=== PATIENT | male | born 1935 | race Caucasian/White ===

== ENCOUNTER 2020-03-24 12:46 | Outpatient (CLI) | payer MEDICARE, OTHER, SELFPAY ==
--- NOTE | ~2020-03-24 | CT_ITS ---
EXAMINATION:CT chest wo con DATE: 03/24/2020 13:25 INDICATION: Solitary pulmonary nodule. TECHNIQUE: Computed tomography (CT) of the chest was performed without intravenous contrast. Automate d exposure control and iterative reconstruction technique were employed. The dose-length product (DLP ) was 111.73 mGy-cm. COMPARISON: PET/CT 04/02/2019, chest CT 03/23/2019, 12/20/2018 FINDINGS: There is a 15 mm nodule in right upper lobe. There are widespread peripheral reticular opac ities with areas of groundglass opacity with a lower lung predominance. There are new groundglass opa cities in posterior segment right upper lobe. No bronchiectasis or honeycombing. No pleural effusion. The heart size is normal. There are coronary artery calcifications. No pericardial effusion. There i s a left chest wall pacer with leads in the right atrium and right ventricle. There are no pathologic ally enlarged lymph nodes. There is a 2 mm stone in left kidney. There is mild thoracic spondylosis. IMPRESSION: 1. 15 mm right upper lobe pulmonary nodule, stable from 12/20/2018, likely benign. 2. Stable chronic interstitial lung disease in a pattern of usual interstitial pneumonia (UIP) versus nonspecific interstitial pneumonia (NSIP). 3. New groundglass opacities in posterior segment right upper lobe, consistent with inflammation vers us pneumonia. Reviewed, dictated and finalized at location A. IMPRESSION: 1. 15 mm right upper lobe pulmonary nodule, stable from 12/20/2018, likely benig n. 2. Stable chronic interstitial lung disease in a pattern of usual interstitial pneumonia (UIP) versus nonspecific interstitial pneumonia (NSIP). 3. New groundglass opacities in posterior segment right upper lobe, consistent with inflammation versus pneumonia.
== END 2020-03-24 12:47 | disposition home or self-care (01) ==
LOC: ANHIMG 12:53
PROVIDERS: PCP Family Medicine; Visit Provider Nurse Practitioner Family
DX: R91.1 Solitary pulmonary nodule (principal); R91.8 Other nonspecific abnormal finding of lung field
CPT/HCPCS: 71250

== ENCOUNTER 2020-03-25 16:22 | Emergency (ER) | payer MEDICARE, OTHER, SELFPAY ==
--- NOTE | ~2020-03-25 | XR_ITS ---
EXAMINATION: XR chest 2V DATE: 03/25/2020 17:05 INDICATION: Chest pain TECHNIQUE: PA and lateral views of the chest are obtained. COMPARISON: CT from yesterday FINDINGS: The lungs are free of acute opacities. A right upper lobe nodule is better demonstrated on yesterday's CT examination. Reticular opacities of the lung bases are consistent with chronic interst itial lung disease. There is no pleural effusion or pneumothorax. The cardiomediastinal silhouette is normal. There is mild thoracic spondylosis. A dual-lead cardiac pacemaker of the left chest wall end s with leads in expected locations. IMPRESSION: 1. No acute cardiopulmonary abnormality. Reviewed, dictated and finalized at location A.
[2020-03-25 16:23] VITALS: BP 163/76; PULSE 72; RESP 17; TEMP 36.4; O2SAT 100
--- NOTE | 2020-03-25 16:27 | ECG_ITS ---
Measurements Intervals Onyx Rate: 75 P: 56 MA: 150 QRS: -25 QRSD: 88 T: 6 QT: 387 QTc: 433 Interpretive Statements SINUS RHYTHM BORDERLINE R WAVE PROGRESSION, ANTERIOR LEADS BORDERLINE ST-T WAVE ABNORMALITY- INFERIOR LEADS BASELINE ARTIFACT- I, II, III, AVR, AVL, AVF, V4-V6 BORDERLINE ECG Electronically Signed On 03-25-2020 19:36:22 CDT by Adolfo Mejia D.O.
[2020-03-25 16:39] VITALS: PULSE 78
[2020-03-25 16:42] LABS: Basophils Percent Auto 0.6 % (0.2-1.2); Eosinophils Absolute Auto 0.1 K/mm3 (0-0.3); Eosinophils Percent Auto 1.6 % (0-4.4); Hematocrit 37.3 % (42.0-52.0); Hemoglobin 12.8 g/dL (14.0-18.0); Immature Granulocyte Absolute 0.01 K/mm3 (0.00-0.031); Immature Granulocyte Percent A 0.1 % (0-0.5); Lymphocytes Absolute Auto 1.19 K/mm3 (0.9-3.2); Lymphocytes Percent Auto 17.4 % (18.3-44.2); Mean Corpuscular HGB Conc 34.3 g/dl (32-36); Mean Corpuscular Hemoglobin 32.4 pg (26-34); Mean Corpuscular Volume 94.4 fl (80-100); Mean Platelet Volume 11.2 fl (7.4-10.4); Monocytes Absolute Auto 0.9 K/mm3 (0.1-0.6); Neutrophils Absolute Auto 4.6 K/mm3 (1.3-6.7); Neutrophils Percent Auto 67.3 % (45.5-73.1); Platelet Count Result 165 k/mm3 (150-375); Red Blood Count 3.95 M/mm3 (4.6-6.20); Red Cell Distribution Width 13.1 % (11.5-14.5); White Blood Count 6.8 K/mm3 (4.5-10.0)
[2020-03-25 16:56] LABS: Anion Gap 6 mmol/L (8-16); Blood Urea Nitrogen 20 mg/dL (9-20); Calcium 8.7 mg/dL (8.4-10.2); Carbon Dioxide 27 mmol/L (22-30); Chloride 101 mmol/L (98-107); Estimated CRCL calculation 55 ml/min; Estimated Glomerular Filt Rate > 60; Glucose 98 mg/dL (75-110); INR 1.3; Potassium 4.7 mmol/L (3.4-5.0); Prothrombin Time 15.7 Seconds (11.1-14.7); Sodium 134 mmol/L (137-145)
[2020-03-25 16:57] LABS: Partial Thromboplastin Time 33.1 SECONDS (22.3-36.8)
[2020-03-25 17:08] LABS: Troponin I < 0.012 ng/mL (0.000-0.034)
[2020-03-25 17:15] VITALS: BP 139/81; PULSE 67; RESP 24; O2SAT 98
--- NOTE | 2020-03-25 17:37 | ED.GENADULT ---
HPI - General Adult General Chief complaint: Chest Pain Stated complaint: cp Time Seen by Provider: 03/25/20 16:31 Source: patient Mode of arrival: ambulatory Limitations: no limitations History of Present Illness HPI narrative: Patient is an 84-year-old male who presents to emergency department for evaluation of left-sided rib pain patient was doing sit ups and stretches last night and shortly thereafter developed the anterior left rib pain has had similar occurrence in the past notes that he had felt fine prior to the onset of symptoms patient on arrival to emergency department. Related Data Home Medications Medication Instructions Recorded Confirmed aspirin 81 mg tablet,delayed 81 mg PO DAILY 06/09/19 release colchicine 0.6 mg tablet 0.6 mg PO DAILY 06/09/19 diclofenac sodium 1 % topical gel 2 gm TOPICAL QID 06/09/19 finasteride 5 mg tablet 5 mg PO DAILY 06/09/19 multivitamin 1 tablet PO DAILY 06/09/19 pravastatin 40 mg tablet 40 mg PO DAILY 06/09/19 rivaroxaban 20 mg tablet 20 mg PO DAILY 06/09/19 tamsulosin 0.4 mg capsule 0.4 mg PO DAILY 06/09/19 Allergies Allergy/AdvReac Type Severity Reaction Status Date / Time Shrimp Allergy Unknown Rash Uncoded 03/25/20 16:26 Review of Systems Review of Systems: All systems reviewed & are unremarkable except as noted in HPI and below PMFSH Past Medical History Medical History BCC (basal cell carcinoma of skin) Surgical History Surgical History History of Mohs micrographic surgery for skin cancer History of pacemaker History of tonsillectomy Social History Social History Smoking status: Former smoker Second hand tobacco smoke exposure: No Smoking end date: 08/05/1965 Alcohol intake: former Substance use: never Substance use type: does not use Gender identity (if verbalized by the patient): Male Exam Narrative: Exam Narrative: GENERAL: Well-appearing, well-nourished, and in no acute distress. HEAD: Normocephalic, atraumatic. EYES: PERRLA and EOMI. ENT: Nares clear, no rhinorrhea or epistaxis. Mucous membranes moist. Oropharynx without tonsillar hypertrophy exudate or other lesions. NECK: Supple. No adenopathy or masses. CHEST: Clear to auscultation. No respiratory distress. No wheezes rales or rhonchi. Tenderness of the left anterior lower lateral rib HEART: Regular rate and rhythm. No murmur heard. Normal peripheral pulses. ABDOMEN: Soft, nontender, nondistended EXTREMITIES: Normal range of motion. No edema. SKIN: Warm, dry, no rash. NEURO: No focal deficits. Alert and oriented x3. PSYCH: Normal mood and affect. Course Course Emergency Course: Patient is in the room in no distress aware of case findings treatment plan and diagnosis no high risk changes in the blood work felt appropriate for outpatient reevaluation Vital Signs Vital signs: Vital Signs Temperature 97.6 F 03/25/20 16:23 Pulse Rate 72 03/25/20 16:23 Respiratory Rate 17 03/25/20 16:23 Blood Pressure 163/76 H 03/25/20 16:23 Pulse Oximetry 100 03/25/20 16:23 Temperature 97.6 F 03/25/20 16:23 Pulse Rate 67 03/25/20 17:15 Respiratory Rate 24 H 03/25/20 17:15 Blood Pressure 139/81 03/25/20 17:15 Pulse Oximetry 98 03/25/20 17:15 Medical Decision Making MDM Narrative Medical decision making narrative: Patients EKGs and labs are without significant high risk changes. Patient's pain is pleuritic and made worse with activity and movement was likely produced from his exercise as he was doing prior evening. no other signs or symptoms to suggest aortic dissection. A low-risk Wells criteria is noted. PE is felt to be unlikely. No pneumonia or URI symptoms were seen on evaluation today. Patient is felt to be resonable for continued evaluation as an outpatient. Vital Signs
== END 2020-03-25 19:21 | disposition home or self-care (01) ==
PROVIDERS: Emergency Medicine; Emergency Provider Emergency Medicine; PCP Family Medicine
DX: R07.81 Pleurodynia (principal); Z85.828 Personal history of other malignant neoplasm of skin; Z95.0 Presence of cardiac pacemaker; Z87.891 Personal history of nicotine dependence; R94.31 Abnormal electrocardiogram [ECG] [EKG]
CPT/HCPCS: 36415; 71046; 80048; 84484; 85025; 85610; 85730; 93005; 96374; 99284; J0131

== ENCOUNTER 2021-03-22 14:20 | Outpatient (CLI) | payer MEDICARE, OTHER, SELFPAY ==
--- NOTE | ~2021-03-22 | XR_ITS ---
XR chest 2V 03/22/2021 14:32 Indication: Possible aspiration. Cough. Shortness of breath. Procedure: PA and lateral views of the chest Comparison: 03/25/2020 Findings: Patchy bilateral airspace disease, compatible with pneumonia. No significant pleural effusi on. No pneumothorax. Pacemaker leads are in expected position. Impression: 1: Patchy bilateral airspace disease, compatible with pneumonia. Reviewed, dictated and finalized at location A. Impression: 1: Patchy bilateral airspace disease, compatible with pneumonia.
== END 2021-03-22 14:21 | disposition home or self-care (01) ==
LOC: ANHIMG 14:21
PROVIDERS: PCP Family Medicine; Visit Provider Family Medicine
DX: R05 Cough (principal); R91.8 Other nonspecific abnormal finding of lung field
CPT/HCPCS: 71046

== ENCOUNTER 2022-01-10 09:57 | Outpatient (CLI) | payer MEDICARE, OTHER, SELFPAY ==
--- NOTE | ~2022-01-10 | US_ITS ---
EXAMINATION: US carotid duplex BI DATE: 01/10/2022 10:43 INDICATION: Carotid stenosis TECHNIQUE: Grayscale, color Doppler, and pulsed Doppler images of the cervical carotid arteries were obtained. The degree of vessel stenosis is placed in one of the following categories: normal, <50%, 5 0-69%, >=70% but less than near-occlusion, near-occlusion, or total occlusion. Note that percent sten osis relative to normal distal artery lumen diameter is indirectly measured from velocity measurement s as described by Jason, et al. Radiology 2003; [id number]. Notes: Normal: Peak systolic velocity <125 centimeters/sec and no plaque <50%. Peak systolic velocity <125 ( EDV <40; ICA/CCA PSV ratio <2.0; used these factors only a tandem lesions or low cardiac output or co ntralateral disease) 50-69 %: PSV 125-230 (EDV 40-100; ratio 2-4) >= 70% but less than near occlusion: PSV greater than 230 (EDV > 100; ratio> 4.0) Near Occlusion: PSV that is variable; markedly narrowed lumen Occlusion: Absent flow on color/spectral Doppler and no lumen on barrow scale. COMPARISON: None. FINDINGS: RIGHT: The right common carotid artery (CCA) peak systolic velocity (PSV) is 64 cm/s. The right internal car otid artery (ICA) PSV is 128 cm/s. The right ICA end-diastolic velocity (EDV) is 18 cm/s. The right I CA/CCA PSV ratio is 2.0. The external carotid artery (ECA) PSV is 8.2 cm/s. There is antegrade flow i n the right vertebral artery. LEFT: The left CCA PSV is 70 cm/s. The left ICA PSV is 69 cm/s. The left ICA EDV is 21 cm/s. The left ICA/C CA PSV ratio is 1.0. The ECA PSV is 74 cm/s. There is antegrade flow in the left vertebral artery. IMPRESSION: 1. 50-69% stenosis in the right internal carotid artery by sonographic criteria. 2. Less than 50% stenosis in the left internal carotid artery by sonographic criteria. Reviewed, dictated and finalized at location B. IMPRESSION: 1. 50-69% stenosis in the right internal carotid artery by sonographic criteria . 2. Less than 50% stenosis in the left internal carotid artery by sonographic cr iteria.
== END 2022-01-10 09:58 | disposition home or self-care (01) ==
PROVIDERS: PCP Family Medicine; Visit Provider Internal Medicine Cardiovascular Disease
DX: I65.23 Occlusion and stenosis of bilateral carotid arteries (principal); R55 Syncope and collapse
CPT/HCPCS: 93880

== ENCOUNTER 2023-05-13 12:53 | Outpatient (NON) | payer MEDICARE, OTHER, SELFPAY | END 2023-05-13 12:54 | disposition home or self-care (01) | LOC: ANHLAB 12:54 | PROVIDERS: PCP Family Medicine; Visit Provider Nurse Practitioner | DX: C44.42 Squamous cell carcinoma of skin of scalp and neck (principal) | CPT/HCPCS: 88305; 88331 ==

== ENCOUNTER 2023-08-06 00:36 | Day surgery (SDC) | payer MEDICARE, OTHER, SELFPAY ==
[2023-07-31 11:33] VITALS: BMI 22.6
--- NOTE | 2023-08-02 08:55 | PC.NURSE ---
Spoke with patient regarding medication Xarelto. Pt. verbalizes understanding that the last dose of Xarelto is to be taken on 08/03/2023 and the Endoscopist will instruct them when to restart after the procedure.
--- NOTE | 2023-08-02 12:00 | SUR.PREOP ---
Patient called regarding upcoming procedure. Left voicemail with procedure date and time and contact for questions.
--- NOTE | 2023-08-02 15:15 | PM.HPGS ---
History of Present Illness History of Present Illness Consent: Risks, benefits, and alternatives have been discussed and questions answered. Patient agrees to proceed with procedure. Chief complaint: nausea, abdominal distension gaseous,early satiety Narrative: Marcial Santos is a 87 year old male with chronic GERD and hiatal hernia.? 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 He was previously seeing a pharmacy coordinator in [place] where he previously lived.? EGD in 2011 with evidence of GERD with reflux esophagitis grade a, 4 cm hiatal hernia, He states over the last 1 year he has had increasing GI upset with nausea pretty soon after eating along with upper abdominal bloating.? He denies any vomiting or abdominal pain.? He denies any dysphagia or odynophagia.? Review of Systems Review of Systems: All systems reviewed & are unremarkable except as noted in HPI and below PMFSH Past Medical History Medical History Abdominal bloating BCC (basal cell carcinoma of skin) Early satiety GERD with esophagitis Hiatal hernia Nausea Surgical History Surgical History History of Mohs micrographic surgery for skin cancer History of pacemaker History of tonsillectomy Family History Family History Mother Hypertension Cerebrovascular accident Social History Social History Smoking status: Never smoker Second hand tobacco smoke exposure: No Smoking end date: 08/05/1965 Alcohol intake: current Drinks per week: 1 Alcohol use details: SHOT A WEEK Substance use: never Substance use type: does not use Living arrangements: with family Occupation/Education: retired Gender identity (if verbalized by the patient): Male Sexual Orientation (if Verbalized by the Patient): Straight or Heterosexual Spiritual care concerns: No Meds Home Medications and Allergies Home Medications Medication Instructions Recorded Confirmed Type colchicine 0.6 mg tablet (Colcrys) 0.6 mg PO DAILY PRN GOUT 06/09/19 08/06/23 History diclofenac sodium 1 % topical gel 2 gm topical QID PRN Pain 06/09/19 08/06/23 History (Voltaren) multivitamin 1 tablet PO DAILY 06/09/19 08/06/23 History pravastatin 40 mg tablet 40 mg PO DAILY 06/09/19 08/06/23 History rivaroxaban 20 mg tablet (Xarelto) 20 mg PO DAILY 06/09/19 08/06/23 History finasteride 5 mg tablet 5 mg PO DAILY #90 tabs 12/03/22 08/06/23 Rx levothyroxine 50 mcg tablet See Rx Instructions .Route 05/24/23 08/06/23 Rx (Synthroid) .COMPLEX #90 tabs allopurinol 100 mg tablet 100 mg PO BID #180 tabs 06/03/23 08/06/23 Rx tamsulosin 0.4 mg capsule (Flomax) 0.4 mg PO DAILY #90 caps 06/03/23 08/06/23 Rx lansoprazole 30 mg capsule,delayed 30 mg PO DAILY #90 caps 07/25/23 08/06/23 Rx release aspirin 81 mg capsule 81 mg PO EVERY OTHER DAY 07/31/23 08/06/23 History fluticasone propionate 50 2 spray intranasal DAILY PRN 07/31/23 08/06/23 History mcg/actuation nasal ALLERGIES spray,suspension lorazepam 0.5 mg tablet (Ativan) 0.5 mg PO .qhs PRN Insomnia 07/31/23 08/06/23 History Allergies Allergy/AdvReac Type Severity Reaction Status Date / Time No Known Allergies Allergy Verified 08/06/23 08:51 Exam Const: General: alert Orientation/consciousness: patient oriented x3 Resp: Auscultation: clear to auscultation bilaterally Cardio: Rhythm: regular rhythm GI: GI Palp: Yes Soft to palpation and No Tenderness to palpation present (GI) Neuro: General: patient oriented x3 Assessment and Plan Assessment and plan (1) GERD with esophagitis: Code(s): K21.00 - Gastro-esophageal reflux disease with esophagitis, without bleeding Status: Acute Assessment and Plan: EG
[2023-08-06 08:52] VITALS: BP 122/74; PULSE 71; RESP 17; TEMP 36; O2SAT 99; BMI 21.5
[2023-08-06] MEDS: LACTATED RINGERS 1,000 ML 150 ML IV CONT (09:13)
--- NOTE | 2023-08-06 09:30 | WPDANESEPPF ---
Anes - Initial Pre Proc Eval Procedure: Operation Date: 08/06/23 10:00 Proposed Procedures p Esophagogastroduodenoscopy - Troy Estrada MD Date/Time: 08/06/23 09:30 Surgeon: Troy Estrada MD Pre Op Diagnosis: nausea, abdominal distension gaseous,early satiety Patient Data Age: 87 Gender: M Height: 1.79 m Weight: 69 kg Last Vital Signs Temp 96.8 F L 08/06/23 08:52 Pulse 71 08/06/23 08:52 Resp 17 08/06/23 08:52 BP 122/74 08/06/23 08:52 Pulse Ox 99 08/06/23 08:52 O2 Del Method Room Air 08/06/23 08:52 Allergies Allergy/AdvReac Type Severity Reaction Status Date / Time No Known Allergies Allergy Verified 08/06/23 08:51 Home Medications Medication Instructions Recorded Confirmed Type colchicine 0.6 mg tablet (Colcrys) 0.6 mg PO DAILY PRN GOUT 06/09/19 08/06/23 History diclofenac sodium 1 % topical gel 2 gm topical QID PRN Pain 06/09/19 08/06/23 History (Voltaren) multivitamin 1 tablet PO DAILY 06/09/19 08/06/23 History pravastatin 40 mg tablet 40 mg PO DAILY 06/09/19 08/06/23 History rivaroxaban 20 mg tablet (Xarelto) 20 mg PO DAILY 06/09/19 08/06/23 History finasteride 5 mg tablet 5 mg PO DAILY #90 tabs 12/03/22 08/06/23 Rx levothyroxine 50 mcg tablet See Rx Instructions .Route 05/24/23 08/06/23 Rx (Synthroid) .COMPLEX #90 tabs allopurinol 100 mg tablet 100 mg PO BID #180 tabs 06/03/23 08/06/23 Rx tamsulosin 0.4 mg capsule (Flomax) 0.4 mg PO DAILY #90 caps 06/03/23 08/06/23 Rx lansoprazole 30 mg capsule,delayed 30 mg PO DAILY #90 caps 07/25/23 08/06/23 Rx release aspirin 81 mg capsule 81 mg PO EVERY OTHER DAY 07/31/23 08/06/23 History fluticasone propionate 50 2 spray intranasal DAILY PRN 07/31/23 08/06/23 History mcg/actuation nasal ALLERGIES spray,suspension lorazepam 0.5 mg tablet (Ativan) 0.5 mg PO .qhs PRN Insomnia 07/31/23 08/06/23 History Patient hx anesthesia problems: none Family hx anesthesia problems: none Results Review: All pre-operative results and documents have been reviewed as part of the pre-operative evaluation. PMFSH Past Medical History Medical History Abdominal bloating BCC (basal cell carcinoma of skin) Early satiety GERD with esophagitis Hiatal hernia Nausea Surgical History Surgical History History of Mohs micrographic surgery for skin cancer History of pacemaker History of tonsillectomy Family History Family History Mother Hypertension Cerebrovascular accident Social History Social History Smoking status: Never smoker Second hand tobacco smoke exposure: No Smoking end date: 08/05/1965 Alcohol intake: current Drinks per week: 1 Alcohol use details: SHOT A WEEK Substance use: never Substance use type: does not use Living arrangements: with family Occupation/Education: retired Gender identity (if verbalized by the patient): Male Sexual Orientation (if Verbalized by the Patient): Straight or Heterosexual Spiritual care concerns: No Anes - Eval Final PreProcedure Day of Procedure 08/06/23 09:30 Patient weight: normal Heart: regular rate and rhythm Lungs: clear to auscultation Airway: Mallampati scale Neurological: alert and oriented Last oral intake: >/= 8 hours ASA classification: III Emergent: no Anesthetic plan: proceed Anesthesia type and monitoring: general GIVS and standard monitoring Results Review: All pre-operative results and documents have been reviewed as part of the pre-operative evaluation. Informed Consent: The patient's anesthetic plan and its attendant risks and benefits were discussed with the patient/family/POA. Questions were solicited and answers provided to the satisfaction of the patient/family/POA.
[2023-08-06 10:17] VITALS: BP 106/62; PULSE 60; RESP 14; O2SAT 97
[2023-08-06 10:27] VITALS: BP 113/72; PULSE 69; RESP 15; O2SAT 98
[2023-08-06 10:37] VITALS: BP 114/69; PULSE 67; RESP 18; O2SAT 99
== END 2023-08-06 10:51 | disposition home or self-care (01) ==
PROVIDERS: PCP Family Medicine; Visit Provider Internal Medicine Gastroenterology
PROC: 0DJ08ZZ Inspection of Upper Intestinal Tract, Via Natural or Artificial Opening Endoscopic (ICD-10-PCS; CPT 43235; principal; 2023-08-06 10:00)
DX: K21.9 Gastro-esophageal reflux disease without esophagitis (principal); K29.70 Gastritis, unspecified, without bleeding; E03.9 Hypothyroidism, unspecified; I67.9 Cerebrovascular disease, unspecified; I48.0 Paroxysmal atrial fibrillation; I47.10 Supraventricular tachycardia, unspecified; Z95.0 Presence of cardiac pacemaker; Z79.01 Long term (current) use of anticoagulants; Z86.73 Personal history of transient ischemic attack (TIA), and cerebral infarction without residual deficits
CPT/HCPCS: 43239; 87081; J2704; J7120

== ENCOUNTER 2023-09-04 08:44 | Outpatient (CLI) | payer MEDICARE, OTHER, SELFPAY ==
--- NOTE | ~2023-09-04 | US_ITS ---
Limited Abdominal Sonogram: Real-time sonographic imaging of the right upper quadrant was performed. Clinical History: Abdominal distention Findings: The liver appears normal with no evidence of mass lesion or bile duct dilatation. Main por mary vein demonstrates normal direction of flow. The gallbladder is well distended, and appears normal with no evidence of gallstone or wall thickening. The common bile duct measures 2 mm. The visualize d pancreas, aorta, and IVC are unremarkable. Impression: No significant abnormality seen. Reviewed, dictated and finalized at location . L [employer]AM[employer]ER Impression: No significant abnormality seen.
== END 2023-09-04 08:45 | disposition home or self-care (01) ==
PROVIDERS: PCP Family Medicine; Visit Provider Internal Medicine Gastroenterology
DX: R14.0 Abdominal distension (gaseous) (principal)
CPT/HCPCS: 76705

== ENCOUNTER 2023-09-24 08:24 | Emergency (ER) | payer MEDICARE, OTHER, SELFPAY ==
--- NOTE | ~2023-09-24 | CT_ITS ---
EXAMINATION: CT abdomen pelvis w con INDICATION: Abdominal pain TECHNIQUE: Computed tomographic images of the abdomen and pelvis were obtained after the administrati on of 100 cc of Omnipaque 350 intravenous contrast. The dose-length product (DLP) was 401.63 mGy-cm. Automated exposure control and iterative reconstruction technique were employed. COMPARISON: 04/02/2019 FINDINGS: There are subpleural reticular and groundglass opacities in the visualized lung bases. No h oneycombing is identified. There is a small sliding hiatal hernia. The liver, spleen, pancreas, gallb ladder, and adrenal glands are normal. The kidneys are unremarkable. There is calcified atheroscleros is of the aorta and many of the other arteries. No pathologically enlarged abdominal or pelvic lymph nodes are identified. No free intraperitoneal gas or evidence of bowel obstruction. There is liquid s tool throughout much of the colon. There is mild wall thickening of the descending colon. There is se eben lumbar spondylosis. IMPRESSION: 1. Mild wall thickening of the descending colon which could reflect colitis. 2. Moderate stool throughout much of the colon, consistent with diarrhea. 3. Chronic interstitial lung disease of the visualized lung bases pattern of nonspecific interstitial pneumonia (NSIP). Reviewed, dictated and finalized at location L. HOUSE DRIVER IMPRESSION: 1. Mild wall thickening of the descending colon which could reflect colitis. 2. Moderate stool throughout much of the colon, consistent with diarrhea. 3. Chronic interstitial lung disease of the visualized lung bases pattern of no nspecific interstitial pneumonia (NSIP).
[2023-09-24 08:43] VITALS: BP 119/83; PULSE 82; RESP 18; TEMP 36.6; O2SAT 100
[2023-09-24 10:29] LABS: Toxigenic C. Diff NEGATIVE (NEGATIVE)
[2023-09-24 12:13] VITALS: BP 107/73; PULSE 85; RESP 18; O2SAT 98
--- NOTE | 2023-09-24 12:26 | ED.NAVMDI ---
HPI - Nausea/Vomiting/Diarrhea General Chief complaint: Nausea/Vomiting/Diarrhea <Nona Bravo PA-C - Last Filed: 09/24/23 19:25> Stated complaint: chronic diarrhea since 09/12/23 <Nona Bravo PA-C - Last Filed: 09/24/23 19:25> Time Seen by Provider: 09/24/23 12:00 <Nona Bravo PA-C - Last Filed: 09/24/23 19:25> Focused HPI: This is an 87-year-old male that presents to the emergency department for diarrhea. Ongoing over the last week. Associated with crampy abdominal pain. He has been taking [id number] antidiarrheals with little relief. No recent antibiotic use or travel. Denies fevers, hematochezia, or melena. GENERAL: Well-appearing, well-nourished, and in no acute distress. HEAD: Normocephalic, atraumatic. CHEST: Clear to auscultation. No respiratory distress. HEART: Regular rate and rhythm. GASTROINTESTINAL: Soft, nondistended NEURO: Alert and oriented x3. Patient screened in triage and initial orders placed. Additional care and disposition to be based upon diagnostic testing and treatment. <Nona Bravo PA-C - Last Filed: 09/24/23 19:25> History of Present Illness HPI Narrative: a 7-year-old male who reports he has been having diarrhea since 09/15/23 (states he initially mis-spoke in triage stating 09/12/23). He does see Dr. Estrada a refueling rampman to performed an EGD though his last colonoscopy was performed in 2011. He states he thought the diarrhea was improving (had formed stool) but then it began worsening overnight, back to being loose. He will experience intermittent low abdominal pain / cramping with this, though not present now. He does note that he was having foul-smelling flatus before his diarrhea began. He has been trialing loperamide even taking 4 (maximum daily dose) last night. His stools have been variable, occasionally with fluffy pieces, at times watery, at times formed but loose; this will alternate with normal stools. This was how his bowel movements were yesterday but at 8pm he returned to watery stools overnight. No blood in bowel movements. No nausea/vomiting, fevers, antibiotics. <Martha Cornejo MD - Last Filed: 09/25/23 17:48> Related Data Home medications: Home Medications Medication Instructions Recorded Confirmed colchicine 0.6 mg tablet (Colcrys) 0.6 mg PO DAILY PRN GOUT 06/09/19 08/06/23 diclofenac sodium 1 % topical gel 2 gm topical QID PRN Pain 06/09/19 08/06/23 (Voltaren) multivitamin 1 tablet PO DAILY 06/09/19 08/06/23 pravastatin 40 mg tablet 40 mg PO DAILY 06/09/19 08/06/23 rivaroxaban 20 mg tablet (Xarelto) 20 mg PO DAILY 06/09/19 08/06/23 aspirin 81 mg capsule 81 mg PO EVERY OTHER DAY 07/31/23 08/06/23 fluticasone propionate 50 2 spray intranasal DAILY PRN 07/31/23 08/06/23 mcg/actuation nasal ALLERGIES spray,suspension lorazepam 0.5 mg tablet (Ativan) 0.5 mg PO .qhs PRN Insomnia 07/31/23 08/06/23 <Nona Bravo PA-C - Last Filed: 09/24/23 19:25> Allergies/Adverse reactions: Allergies Allergy/AdvReac Type Severity Reaction Status Date / Time No Known Allergies Allergy Verified 09/24/23 08:45 <Nona Bravo PA-C - Last Filed: 09/24/23 19:25> Review of Systems Review of Systems: CONSTITUTIONAL: Denies fever GASTROINTESTINAL: Reports abdominal pain, and diarrhea. <Nona Bravo PA-C - Last Filed: 09/24/23 19:25> All systems reviewed & are unremarkable except as noted in HPI and below <Nona Bravo PA-C - Last Filed: 09/24/23 19:25> [facility] Past Medical History Medical History: Medical History Abdominal bloating BCC (basal cell carcinoma of skin) Early satiety GERD with esophagitis Hiatal hernia Nausea <Nona Bravo PA-C - Last Filed: 09/24/23 19:25> Surgical History Surgical History: Surgical History History of Mohs micrographic
[2023-09-24 12:56] LABS: Basophils Percent Auto 0.4 % (0.2-1.2); Eosinophils Percent Auto 0.9 % (0-4.4); Hematocrit 38.1 % (42.0-52.0); Hemoglobin 12.7 g/dL (14.0-18.0); Immature Granulocyte Absolute 0.01 K/mm3 (0.00-0.031); Immature Granulocyte Percent A 0.2 % (0-0.5); Lymphocytes Absolute Auto 0.94 K/mm3 (0.9-3.2); Lymphocytes Percent Auto 20.7 % (18.3-44.2); Mean Corpuscular HGB Conc 33.3 g/dl (32-36); Mean Corpuscular Hemoglobin 32.6 pg (26-34); Mean Corpuscular Volume 97.9 fl (80-100); Monocytes Absolute Auto 0.6 K/mm3 (0.1-0.6); Neutrophils Absolute Auto 2.9 K/mm3 (1.3-6.7); Neutrophils Percent Auto 64.8 % (45.5-73.1); Platelet Count Result 178 k/mm3 (150-375); Red Blood Count 3.89 M/mm3 (4.6-6.20); Red Cell Distribution Width 12.8 % (11.5-14.5); White Blood Count 4.5 K/mm3 (4.5-10.0)
[2023-09-24 13:16] LABS: Alanine Aminotransferase 16 U/L (6-50); Albumin Level 3.7 g/dL (3.5-5.1); Alkaline Phosphatase 106 U/L (38-126); Anion Gap 3 mmol/L (8-16); Aspartate Amino Transferase 28 U/L (17-59); Bilirubin,Total 0.7 mg/dL (0.2-1.3); Blood Urea Nitrogen 20 mg/dL (9-20); Calcium 8.8 mg/dL (8.4-10.2); Carbon Dioxide 28 mmol/L (22-30); Chloride 104 mmol/L (98-107); Estimated CRCL calculation 44 ml/min; Estimated Glomerular Filt Rate > 60; Glucose 93 mg/dL (65-110); Lipase 24 U/L (23-300); Potassium 3.6 mmol/L (3.4-5.0); Sodium 135 mmol/L (137-145)
[2023-09-24 17:41] VITALS: BP 106/69; PULSE 81; RESP 18; O2SAT 100
[2023-09-24] MEDS: metroNIDAZOLE 500 MG TABLET PO (17:41)
== END 2023-09-24 18:04 | disposition home or self-care (01) ==
PROVIDERS: Family Medicine; Physician Assistant; Emergency Provider Student in an Organized Health Care Education/Training Program; PCP Family Medicine
DX: K52.9 Noninfective gastroenteritis and colitis, unspecified (principal); K21.00 Gastro-esophageal reflux disease with esophagitis, without bleeding; K44.9 Diaphragmatic hernia without obstruction or gangrene; Z95.0 Presence of cardiac pacemaker; Z85.828 Personal history of other malignant neoplasm of skin; Z87.891 Personal history of nicotine dependence; Z79.82 Long term (current) use of aspirin; Z79.01 Long term (current) use of anticoagulants
CPT/HCPCS: 36415; 74177; 80053; 83690; 83735; 85025; 87045; 87427; 87449; 87493; 89055; 99284; A9270; Q9967

== ENCOUNTER 2023-10-02 14:59 | Outpatient (CLI) | payer MEDICARE, OTHER, SELFPAY ==
[2023-10-02 15:27] LABS: Hematocrit 35.4 % (42.0-52.0); Hemoglobin 11.7 g/dL (14.0-18.0); Mean Corpuscular HGB Conc 33.1 g/dl (32-36); Mean Corpuscular Hemoglobin 32.2 pg (26-34); Mean Corpuscular Volume 97.5 fl (80-100); Mean Platelet Volume 11.2 fl (7.4-10.4); Platelet Count Result 208 k/mm3 (150-375); Red Blood Count 3.63 M/mm3 (4.6-6.20); Red Cell Distribution Width 13.1 % (11.5-14.5); White Blood Count 3.6 K/mm3 (4.5-10.0)
[2023-10-02 15:42] LABS: Alanine Aminotransferase 19 U/L (6-50); Albumin Level 3.1 g/dL (3.5-5.1); Alkaline Phosphatase 69 U/L (38-126); Anion Gap 0 mmol/L (8-16); Aspartate Amino Transferase 32 U/L (17-59); Bilirubin,Total 0.4 mg/dL (0.2-1.3); Blood Urea Nitrogen 23 mg/dL (9-20); CRP 1.9 mg/dL (<1.0); Calcium 8.3 mg/dL (8.4-10.2); Carbon Dioxide 30 mmol/L (22-30); Chloride 105 mmol/L (98-107); Estimated Glomerular Filt Rate > 60; Glucose 90 mg/dL (65-110); Potassium 4.1 mmol/L (3.4-5.0); Sodium 135 mmol/L (137-145)
[2023-10-02 15:55] LABS: Erythrocyte Sedimentation Rate 38 mm/hr (0-20)
== END 2023-10-02 15:00 | disposition home or self-care (01) ==
LOC: ANHLAB 15:07
PROVIDERS: PCP Family Medicine; Visit Provider Nurse Practitioner
DX: C44.91 Basal cell carcinoma of skin, unspecified (principal); K52.9 Noninfective gastroenteritis and colitis, unspecified; R60.0 Localized edema
CPT/HCPCS: 36415; 80053; 85027; 85652; 86140

== ENCOUNTER 2023-10-03 08:37 | Outpatient (RCR) | payer MEDICARE, OTHER, SELFPAY ==
[2023-10-03 12:28] LABS: IFOB Positive Control Positive; Immunochemical Fecal Occult Bl Negative (N)
[2023-10-03 12:59] LABS: NT Pro B Type Natriuretic Pept 1030 pg/mL (19.9-100)
[2023-10-10 16:03] LABS: Calprotectin, Stool 301 mcg/g
== END 2023-10-03 08:40 | disposition home or self-care (01) ==
LOC: ANHLAB 08:37
PROVIDERS: PCP Family Medicine; Visit Provider Nurse Practitioner
DX: I50.9 Heart failure, unspecified (principal); K52.9 Noninfective gastroenteritis and colitis, unspecified; R60.0 Localized edema
CPT/HCPCS: 36415; 80053; 82274; 83880; 83993; 85027; 85652; 86140; 87269

== ENCOUNTER 2023-11-11 02:07 | Day surgery (SDC) | payer MEDICARE, OTHER, SELFPAY ==
[2023-11-01 15:05] VITALS: BMI 21.5
--- NOTE | 2023-11-08 09:52 | SUR.PREOP ---
Patient called regarding upcoming procedure- no answer.
--- NOTE | 2023-11-11 14:44 | WPDANESEPPF ---
Anes - Initial Pre Proc Eval Procedure: Operation Date: 11/11/23 15:00 Proposed Procedures p Colonoscopy - Jairo Mobley MD Date/Time: 11/11/23 14:44 Surgeon: Jairo Mobley MD Pre Op Diagnosis: Noninfective gastroenteritis&colitis, other fecal Patient Data Age: 87 Gender: M Height: 1.78 m Weight: 65.2 kg Allergies Allergy/AdvReac Type Severity Reaction Status Date / Time No Known Allergies Allergy Verified 11/11/23 14:30 Home Medications Medication Instructions Recorded Confirmed Type colchicine 0.6 mg tablet (Colcrys) 0.6 mg PO DAILY PRN GOUT 06/09/19 11/07/23 History diclofenac sodium 1 % topical gel 2 gm topical QID PRN Pain 06/09/19 11/07/23 History (Voltaren) pravastatin 40 mg tablet 40 mg PO DAILY 06/09/19 11/07/23 History rivaroxaban 20 mg tablet (Xarelto) 20 mg PO DAILY 06/09/19 11/07/23 History finasteride 5 mg tablet 5 mg PO DAILY #90 tabs 12/03/22 11/07/23 Rx allopurinol 100 mg tablet 100 mg PO BID #180 tabs 06/03/23 11/07/23 Rx tamsulosin 0.4 mg capsule (Flomax) 0.4 mg PO DAILY #90 caps 06/03/23 11/07/23 Rx lansoprazole 30 mg capsule,delayed 30 mg PO DAILY #90 caps 07/25/23 11/07/23 Rx release aspirin 81 mg capsule 81 mg PO EVERY OTHER DAY 07/31/23 11/07/23 History levothyroxine 50 mcg tablet See Rx Instructions .Route 09/02/23 11/07/23 Rx (Synthroid) .COMPLEX #7 tabs lorazepam 0.5 mg tablet (Ativan) 0.5 mg PO .qhs PRN anxiety #90 tabs 10/15/23 11/07/23 Rx fluticasone propionate 50 2 spray intranasal DAILY PRN 10/28/23 11/07/23 Rx mcg/actuation nasal ALLERGIES #16 grams spray,suspension cholestyramine (with sugar) 4 gram 4 g PO .HS #348.6 grams 11/06/23 11/11/23 Rx oral powder (Questran) Patient hx anesthesia problems: none Family hx anesthesia problems: none Results Review: All pre-operative results and documents have been reviewed as part of the pre-operative evaluation. [facility] Past Medical History Medical History Abdominal bloating Anemia BCC (basal cell carcinoma of skin) Early satiety Elevated fecal calprotectin GERD with esophagitis Heart failure Hiatal hernia Nausea Peripheral edema Surgical History Surgical History History of Mohs micrographic surgery for skin cancer History of pacemaker History of tonsillectomy Family History Family History Mother Hypertension Cerebrovascular accident Social History Social History Social History: Smoking status: Never smoker Second hand tobacco smoke exposure: No Smoking end date: 08/05/1965 Alcohol intake: never Drinks per week: 1 Alcohol use details: SHOT A WEEK Substance use: never Substance use type: does not use Do You Feel Safe in your Home?: Yes Lack of Transportation: No Lack of Food: Never True Current Housing: I Have Housing Concerned About Future Housing: No Difficulty Paying Gas/Electric Bills: No Difficulty Paying for Meds: No Currently Unemployed: YES Education: Don't Know Difficulty w/ Childcare or Family Care: No Living arrangements: with family Occupation/Education: retired Gender identity (if verbalized by the patient): Male Sexual Orientation (if Verbalized by the Patient): Straight or Heterosexual Spiritual care concerns: No Anes - Eval Final PreProcedure Day of Procedure 11/11/23 14:44 Patient weight: normal Heart: regular rate and rhythm Lungs: clear to auscultation Airway: Mallampati scale and special considerations (Caps and implants noted. ) Neurological: alert and oriented Last oral intake: 6 hours ASA classification: III Emergent: no Anesthetic plan: proceed Anesthesia type and monitoring: general and standard monitoring Other findings: CRMD form re
[2023-11-11 14:49] VITALS: BP 135/82; PULSE 81; RESP 18; TEMP 36.2; O2SAT 99
[2023-11-11] MEDS: LACTATED RINGERS 1,000 ML 150 ML IV CONT (14:50)
--- NOTE | 2023-11-11 15:47 | WPDHPUPDATE1 ---
History and Physical Update Update Date/Time: 11/11/23 15:47 History and Physical has been reviewed, including an updated exam of the patient. There are NO changes in the patient's condition. Risks, benefits, and alternatives have been discussed and questions answered. Patient agrees to proceed with procedure.
[2023-11-11 16:04] VITALS: BP 116/67; PULSE 78; RESP 26; O2SAT 100
[2023-11-11 16:14] VITALS: BP 104/61; PULSE 64; RESP 26; O2SAT 100
[2023-11-11 16:24] VITALS: BP 128/75; PULSE 76; RESP 21; O2SAT 100
== END 2023-11-11 16:34 | disposition home or self-care (01) ==
PROVIDERS: PCP Family Medicine; Visit Provider Internal Medicine Gastroenterology
PROC: 0DJD8ZZ Inspection of Lower Intestinal Tract, Via Natural or Artificial Opening Endoscopic (ICD-10-PCS; CPT 45378; principal; 2023-11-11 15:00)
DX: Z09 Encounter for follow-up examination after completed treatment for conditions other than malignant neoplasm (principal); K63.5 Polyp of colon; K64.8 Other hemorrhoids; K57.30 Diverticulosis of large intestine without perforation or abscess without bleeding; D64.9 Anemia, unspecified; Z87.19 Personal history of other diseases of the digestive system; K21.00 Gastro-esophageal reflux disease with esophagitis, without bleeding; I50.9 Heart failure, unspecified; I48.0 Paroxysmal atrial fibrillation; R79.82 Elevated C-reactive protein (CRP); Z79.01 Long term (current) use of anticoagulants; Z79.82 Long term (current) use of aspirin; Z98.890 Other specified postprocedural states; Z95.0 Presence of cardiac pacemaker; Z85.828 Personal history of other malignant neoplasm of skin; Z82.49 Family history of ischemic heart disease and other diseases of the circulatory system
CPT/HCPCS: 45385; 88305; J2704; J7120

== ENCOUNTER 2024-02-26 10:17 | Outpatient (CLI) | payer MEDICARE, OTHER, SELFPAY ==
--- NOTE | ~2024-02-26 | US_ITS ---
EXAMINATION: US carotid duplex BI DATE: 02/26/2024 10:58 INDICATION: Carotid stenosis TECHNIQUE: Grayscale, color Doppler, and pulsed Doppler images of the cervical carotid arteries were obtained. The degree of vessel stenosis is placed in one of the following categories: normal, <50%, 5 0-69%, >=70% but less than near-occlusion, near-occlusion, or total occlusion. Note that percent sten osis relative to normal distal artery lumen diameter is indirectly measured from velocity measurement s as described by Jason, et al. Radiology 2003; 229:340-346. Notes: Normal: Peak systolic velocity <125 centimeters/sec and no plaque <50%. Peak systolic velocity <125 ( EDV <40; ICA/CCA PSV ratio <2.0; used these factors only a tandem lesions or low cardiac output or co ntralateral disease) 50-69 %: PSV 125-230 (EDV 40-100; ratio 2-4) >= 70% but less than near occlusion: PSV greater than 230 (EDV > 100; ratio> 4.0) Near Occlusion: PSV that is variable; markedly narrowed lumen Occlusion: Absent flow on color/spectral Doppler and no lumen on barrow scale. COMPARISON: None. FINDINGS: RIGHT: The right common carotid artery (CCA) peak systolic velocity (PSV) is 64 cm/s. The right internal car otid artery (ICA) PSV is 147 cm/s. The right ICA end-diastolic velocity (EDV) is 36 cm/s. The right I CA/CCA PSV ratio is 2.3. The external carotid artery (ECA) PSV is 81 cm/s. There is antegrade flow in the right vertebral artery. LEFT: The left CCA PSV is 82 cm/s. The left ICA PSV is 75 cm/s. The left ICA EDV is 28 cm/s. The left ICA/C CA PSV ratio is 0.9. The ECA PSV is 82 cm/s. There is antegrade flow in the left vertebral artery. IMPRESSION: 1. 50-69% stenosis in the right internal carotid artery by sonographic criteria. 2. Less than 50% stenosis in the left internal carotid artery by sonographic criteria. Reviewed, dictated and finalized at location B. IMPRESSION: 1. 50-69% stenosis in the right internal carotid artery by sonographic criteria . 2. Less than 50% stenosis in the left internal carotid artery by sonographic cr iteria.
== END 2024-02-26 10:18 | disposition home or self-care (01) ==
LOC: ANHIMG 10:17
PROVIDERS: PCP Family Medicine; Visit Provider Internal Medicine Cardiovascular Disease
DX: I65.23 Occlusion and stenosis of bilateral carotid arteries (principal)
CPT/HCPCS: 93880

== ENCOUNTER 2024-06-05 03:02 | Day surgery (SDC) | payer MEDICARE, OTHER, SELFPAY ==
[2024-06-04 13:09] VITALS: BMI 22.3
[2024-06-05] VITALS (8 sets, daily range): BP systolic 104–133; BP diastolic 68–88; PULSE 62–73; RESP 14–19; TEMP 36.2–36.6; O2SAT 96–100
[2024-06-05 07:03] LABS: Basophils Percent Auto 0.2 % (0.2-1.2); Eosinophils Absolute Auto 0.1 K/mm3 (0-0.3); Eosinophils Percent Auto 1.6 % (0-4.4); Hematocrit 38.1 % (42.0-52.0); Hemoglobin 13.2 g/dL (14.0-18.0); Immature Granulocyte Absolute 0.01 K/mm3 (0.00-0.031); Immature Granulocyte Percent A 0.2 % (0-0.5); Lymphocytes Absolute Auto 0.86 K/mm3 (0.9-3.2); Mean Corpuscular HGB Conc 34.6 g/dl (32-36); Mean Corpuscular Hemoglobin 33.8 pg (26-34); Mean Corpuscular Volume 97.7 fl (80-100); Mean Platelet Volume 10.9 fl (7.4-10.4); Monocytes Absolute Auto 0.7 K/mm3 (0.1-0.6); Monocytes Percent Auto 11.5 % (2.6-8.5); Neutrophils Absolute Auto 4.1 K/mm3 (1.3-6.7); Neutrophils Percent Auto 71.5 % (45.5-73.1); Platelet Count Result 157 k/mm3 (150-375); Red Cell Distribution Width 13.2 % (11.5-14.5); White Blood Count 5.7 K/mm3 (4.5-10.0)
[2024-06-05 07:17] LABS: Anion Gap 8 mmol/L (4-12); Blood Urea Nitrogen 24 mg/dL (9-20); Calcium 8.7 mg/dL (8.4-10.2); Carbon Dioxide 25 mmol/L (22-30); Chloride 102 mmol/L (98-107); Estimated CRCL calculation 50 ml/min; Estimated Glomerular Filt Rate > 60; Glucose 83 mg/dL (65-110); Potassium 4.3 mmol/L (3.4-5.0); Sodium 135 mmol/L (137-145)
--- NOTE | 2024-06-05 07:18 | P.HP_ITS ---
H&P: HPI History of Present Illness Date/Time: 06/05/24 07:18 Chief Complaint: elective admission for pacemaker generator strain Narrative: this is an 88-year-old male who has a chronically implanted a dual-chamber pacemaker for treatment of sick sinus syndrome. He also has paroxysmal atrial fibrillation. He received a dual-chamber pacemaker with for this in the remote past. He underwent a generator change in January of 2014 at this hospital because of [facility]. His device has been followed routinely in the office as but felt to be at [facility] after 10 years of service and he required the pacemaker generator change. He is not reporting any symptoms of chest pain shortness of breath palpitations orthopnea PND or edema. With the pacemaker did reach [facility] he began pacing VVI at 65 beats per minute as programmed. Since then he has been reporting sense of reduced stamina and energy because of lack of AV synchrony. The patient is systemically anticoagulated with Xarelto because of his atrial fibrillation. Th at has been stopped for several days prior to this procedure Review of Systems Constitutional: Constitutional: Reports no additional constitutional complaints and Reports lethargy Eyes: Eyes: Reports no additional eye complaints ENT: Reports system reviewed and no additional complaints, except as documented Cardiovascular: Cardiovascular: Reports no additional cardiovascular complaints Respiratory: Respiratory: Reports no additional respiratory complaints Gastrointestinal: Gastrointestinal: Reports no additional gastrointestinal complaints Musculoskeletal: Musculoskeletal: Reports no additional musculoskeletal complaints Neurologic: Reports system reviewed and no additional complaints, except as documented [facility] Past Medical History Medical History Abdominal bloating Anemia BCC (basal cell carcinoma of skin) Early satiety Elevated fecal calprotectin GERD with esophagitis Heart failure Hiatal hernia Nausea Peripheral edema Surgical History Surgical History History of Mohs micrographic surgery for skin cancer History of pacemaker History of tonsillectomy Family History Family History Mother Hypertension Cerebrovascular accident Social History Social History Social History: Smoking status: Never smoker Second hand tobacco smoke exposure: No Smoking end date: 08/05/1965 Alcohol intake: never Drinks per week: 1 Alcohol use details: SHOT A WEEK Substance use: never Substance use type: does not use Do You Feel Safe in your Home?: Yes Lack of Transportation: No Lack of Food: Never True Current Housing: I Have Housing Concerned About Future Housing: No Difficulty Paying Gas/Electric Bills: No Difficulty Paying for Meds: No Currently Unemployed: YES Education: Don't Know Difficulty w/ Childcare or Family Care: No Living arrangements: with family Occupation/Education: retired Gender identity (if verbalized by the patient): Male Sexual Orientation (if Verbalized by the Patient): Straight or Heterosexual Spiritual care concerns: No Meds Home Medications and Allergies Home Medications Medication Instructions Recorded Confirmed Type colchicine 0.6 mg tablet (Colcrys) 0.6 mg PO DAILY PRN GOUT 06/09/19 06/04/24 History diclofenac sodium 1 % topical gel 2 gm topical QID PRN Pain 06/09/19 06/04/24 History (Voltaren) pravastatin 40 mg tablet 20 mg PO DAILY 06/09/19 06/04/24 History rivaroxaban 20 mg tablet (Xarelto) 20 mg PO DAILY 06/09/19 06/04/24 History tamsulosin 0.4 mg capsule (Flomax) 0.4 mg PO DAILY #90 caps 06/03/23 06/04/24 Rx lansoprazole 30 mg capsule,delayed 30 mg PO DAILY #90 caps 07/25/23 06/04/24 Rx release aspirin 81 mg capsule 81 mg PO EVERY OTHER DAY 07/31/23 06/04/24 History fluticasone propionate 50 2 spray intranasal DAILY PRN 10/28/23 06/04/24 Rx mcg/actuation nasal ALLERGIES #16 grams spray,suspension finasteride 5 mg tablet 5 mg PO DAILY #90 tabs 11/28/23 06/04/24 Rx lorazepam 0.5 mg tablet (Ativan) 0.5 mg PO .qhs PRN anxiety #90 tabs 04/16/24 06/04/24 Rx allopurinol 100 mg tablet 200 mg PO DAILY 06/04/24 06/04/24 History levothyroxine 50 mcg tablet 50 mcg PO DAILY 06/04/24 06/04/24 History (Synthroid) Allergies Allergy/AdvReac Type Severity Reaction Status Date / Time No Known Allergies Allergy Verified 06/05/24 06:54 Vital Signs Vital Signs - 24 hr 06/05/24 06:56 Temperature 36.2 C L Pulse Rate 73 Respiratory Rate 15 Blood Pressure 133/73 Pulse Oximetry 100 Oxygen Delivery Room Air Exam Const: General: comfortable and no acute distress Other: pleasant elderly man in no apparent distress HENMT: Mouth: Yes moist mucous membranes Eyes: Sclera: sclerae normal Neck: Neck: supple and no JVD Resp: Effort & Inspection: normal respiratory effort Auscultation: clear to auscultation bilaterally Other: pacemaker pocket easily visible of rather thin gentleman Cardio: Rate: regular rate Rhythm: regular rhythm GI: GI Palp: Yes Soft to palpation Auscultation: normal bowel sounds Skin: General skin exam: normal color Neuro: Other: alert and oriented x3 Extrem: Other: no edema, good distal pulses H&P: Results Labs Labs: [facility] 06/05/24 06:53 Sodium 135 L Potassium 4.3 Chloride 102 Carbon Dioxide 25 BUN 24 H Creatinine 0.90 Glucose 83 Calcium 8.7 Assessment and Plan Assessment and plan (1) SSS (sick sinus syndrome): Code(s): I49.5 - Sick sinus syndrome Status: Acute (2) Pacemaker: Code(s): Z95.0 - Presence of cardiac pacemaker Status: Acute Plan chronically implanted dual-chamber pacemaker for treatment of sick sinus syndrome with current generator at [facility] patient admitted electively this morning for generator change. Anticoagulation which has been prescribed for his paroxysmal AFib has been discontinued 3 days ago. At to be proceeding with pacemaker generator change this morning and discharge shortly thereafter Hugo Thurman MD [facility]
--- NOTE | 2024-06-05 07:23 | P.SEDATION_ITS ---
Moderate Sedation Note-Pt Data Patient Data Diagnosis: pacemaker at [facility] sick sinus syndrome Present Complaint: no complaints Procedure to be performed/Plan: pacemaker generator change Allergies Allergy/AdvReac Type Severity Reaction Status Date / Time No Known Allergies Allergy Verified 06/05/24 06:54 Home Medications Medication Instructions Recorded Confirmed Type colchicine 0.6 mg tablet (Colcrys) 0.6 mg PO DAILY PRN GOUT 06/09/19 06/04/24 History diclofenac sodium 1 % topical gel 2 gm topical QID PRN Pain 06/09/19 06/04/24 History (Voltaren) pravastatin 40 mg tablet 20 mg PO DAILY 06/09/19 06/04/24 History rivaroxaban 20 mg tablet (Xarelto) 20 mg PO DAILY 06/09/19 06/04/24 History tamsulosin 0.4 mg capsule (Flomax) 0.4 mg PO DAILY #90 caps 06/03/23 06/04/24 Rx lansoprazole 30 mg capsule,delayed 30 mg PO DAILY #90 caps 07/25/23 06/04/24 Rx release aspirin 81 mg capsule 81 mg PO EVERY OTHER DAY 07/31/23 06/04/24 History fluticasone propionate 50 2 spray intranasal DAILY PRN 10/28/23 06/04/24 Rx mcg/actuation nasal ALLERGIES #16 grams spray,suspension finasteride 5 mg tablet 5 mg PO DAILY #90 tabs 11/28/23 06/04/24 Rx lorazepam 0.5 mg tablet (Ativan) 0.5 mg PO .qhs PRN anxiety #90 tabs 04/16/24 06/04/24 Rx allopurinol 100 mg tablet 200 mg PO DAILY 06/04/24 06/04/24 History levothyroxine 50 mcg tablet 50 mcg PO DAILY 06/04/24 06/04/24 History (Synthroid) Sedation/Anesthesia: No previous sedation/anesthesia problems (including family history). [facility] Past Medical History Medical History Abdominal bloating Anemia BCC (basal cell carcinoma of skin) Early satiety Elevated fecal calprotectin GERD with esophagitis Heart failure Hiatal hernia Nausea Peripheral edema Surgical History Surgical History History of Mohs micrographic surgery for skin cancer History of pacemaker History of tonsillectomy Family History Family History Mother Hypertension Cerebrovascular accident Social History Social History Social History: Smoking status: Never smoker Second hand tobacco smoke exposure: No Smoking end date: 08/05/1965 Alcohol intake: never Drinks per week: 1 Alcohol use details: SHOT A WEEK Substance use: never Substance use type: does not use Do You Feel Safe in your Home?: Yes Lack of Transportation: No Lack of Food: Never True Current Housing: I Have Housing Concerned About Future Housing: No Difficulty Paying Gas/Electric Bills: No Difficulty Paying for Meds: No Currently Unemployed: YES Education: Don't Know Difficulty w/ Childcare or Family Care: No Living arrangements: with family Occupation/Education: retired Gender identity (if verbalized by the patient): Male Sexual Orientation (if Verbalized by the Patient): Straight or Heterosexual Spiritual care concerns: No Mod Sed Physical Exam Physical Exam Pre Procedural Exam: Normal: Appearance, Neck, Throat, Airway, Lungs, Heart Size, Heart Rate, Heart Rhythm, Neuro Exam and Extremities Hours since solid foods: 12 Hours since liquid intake: 12 Mallampati Classification: class II Internal Medicine - PN: Obj Da Vital Signs Vital Signs: Vital Signs - 24 hr 06/05/24 06:56 Temperature 36.2 C L Pulse Rate 73 Respiratory Rate 15 Blood Pressure 133/73 Pulse Oximetry 100 Oxygen Delivery Room Air Labs 06/05/24 06:53 06/05/24 06:53 Labs: Laboratory Results - last 24 hr 06/05/24 06:53 Sodium 135 L Potassium 4.3 Chloride 102 Carbon Dioxide 25 Anion Gap 8 BUN 24 H Creatinine 0.90 Estim Creat Clear Calc 50 Estimated GFR > 60 Glucose 83 Calcium 8.7 ASA Classification/Sedation ASA Classification/Sedation ASA Class: II Emergent: No Risks: Risks, benefits and alternatives explained and patient/family accepted plan for sedation. Patient re-evaluated immediately prior to sedation.
[2024-06-05 08:08] LABS: INR 1.1; Prothrombin Time 14.3 Seconds (11.1-14.7)
--- NOTE | 2024-06-05 08:12 | P.PCNCC_ITS ---
Cardiac Cath Procedure Note Date of procedure:: 06/05/24 Performing physician:: Hugo Thurman MD Indication:: chronically implanted pacemaker at [facility] Brief clinical history:: this is an 88-year-old man with sick sinus syndrome as well as paroxysmal atrial fib. He has a chronically implanted pacemaker device which has been found to be at [facility] and palpation surveillance. He is admitted for elective generator change. This is the 2nd generator change in this site Procedure Procedure performed:: explant of depleted pacemaker pulse generator implantation of new dual-chamber pulse generator Sedation/Medication given:: fentanyl 25 mg Versed 2 mg case start time 739 a.m. case end time 8:10 a.m. sedation was provided by Juan Dia RN, trained observer Access site:: chronic left subclavian pocket Estimated blood loss:: minimal Procedure note:: the patient was brought to the cardiac catheterization lab in the postab sorptive state the left anterior chest wall with the pacemaker pocket easily visible was prepped and draped in the usual fashion. Anesthesia was then provided with 20 cc of lidocaine injected over the pocket. Incision was then made over the pocket using the PlasmaBlade and the plasma blade was used to incise the subcutaneous tissue and a culture the fibrous capsule. Electrocautery was used to provide cutaneous hemostasis. Following this the pocket was opened using the Metzenbaum scissors and the chronically implanted pacemaker at the attached leads were found to be visually intact and unre markable in appearance. The leads were disconnected from the depleted generator using the torque wrench in the same torque wrench was used to connect the leads to the new pacemaker generator. I had to dissect inferior more margin of the fibrous capsule to drop provided approval for the new generator to be inserted. After this the new generator the chronic leads were placed into the pocket this was then irrigated with antibiotic infused saline and the incision was closed in layers using 3-0 Vicryl in interrupted fashion for the subcutaneous tissue and 4-0 Vicryl in a running subcuticular fashion for the skin. The wound was dressed with an Aquacel dressing and the patient was taken to the holding area in stable condition procedure was well tolerated and uncomplicated. Findings:: Depleted pulse generator is a Medtronic dual-chamber pacemaker model RVDR01 serial number [id number]. device was implanted January 16, 2014 the new pacemaker generator is a dual-chamber pacemaker model W1DR01 serial number [id number]. the and AR/DDDR mode with lower rate limit 60 upper rate limit 130 av delay 180/150 millisecond. Atrial is a chronically implanted Medtronic bipolar lead model 5076-52 serial number [id number] originally implanted July 21 2004 P-waves are sensed at 1.2 mV, threshold was 1.6 volts at 0.4 millisecond. Impedance 912 Ohms ventricular lead is a chronically implanted Medtronic bipolar lead model 5076- 58, serial number [id number]. originally implanted July 21 2004. R waves are sensed at 5.8 mV. Threshold is 0.5 volts at 0.4 millisecond. Impedance 456 Ohms. Conclusion:: 1. Successful uncomplicated explantation of depleted dual-chamber pulse generator 2. successful uncomplicated implantation of new dual-chamber Medtronic pacemaker for ongoing treatment of sick sinus syndrome with this 88-year-old man Hugo Thurman MD [facility]
== END 2024-06-05 10:00 | disposition home or self-care (01) ==
PROVIDERS: PCP Family Medicine; Visit Provider Specialist
PROC: 0JPT0PZ Removal of Cardiac Rhythm Related Device from Trunk Subcutaneous Tissue and Fascia, Open Approach (ICD-10-PCS; CPT 33228; principal; 2024-06-05 07:30)
DX: I49.5 Sick sinus syndrome (principal); I48.0 Paroxysmal atrial fibrillation; D64.9 Anemia, unspecified; K21.00 Gastro-esophageal reflux disease with esophagitis, without bleeding; I50.9 Heart failure, unspecified; Z79.01 Long term (current) use of anticoagulants; Z79.82 Long term (current) use of aspirin; Z98.890 Other specified postprocedural states; Z95.0 Presence of cardiac pacemaker; Z85.828 Personal history of other malignant neoplasm of skin; Z82.49 Family history of ischemic heart disease and other diseases of the circulatory system
CPT/HCPCS: 33228; 36415; 80048; 85025; 85610; C1785; J0690; J2003; J2250; J3010; J7040

== ENCOUNTER 2024-10-02 04:51 | Emergency (ER) | payer MEDICARE, OTHER, SELFPAY ==
[2024-10-02 04:53] VITALS: BP 145/90; PULSE 74; RESP 15; TEMP 36.4; O2SAT 100
--- NOTE | 2024-10-02 05:19 | ED.EAR ---
HPI - Ear Problem General Chief complaint: Ear Stated complaint: bleeding from op site Time Seen by Provider: 10/02/24 04:59 History of Present Illness HPI Narrative: 88-year-old male presenting for bleeding from his biopsy site out of his left ear. Patient with his laundromat manager last in the morning and had 2 biopsies in his left ear for suspected malignancy. He still takes Xarelto for blood thinning and had bleeding at the time with the procedure and they applied a bandage and sent him home. Patient knows that he was having a trickle of blood since this happened. Denies any hearing loss, no fever chills. No headache vision changes. Came to the ER for evaluation of the persistent bleeding. Related Data Home Medications ?Medication ?Instructions ?Recorded ?Confirmed ?Last Taken ?Type diclofenac sodium 1 % topical gel 2 gm topical QID PRN Pain 06/09/19 09/09/24 11/10/23 History (Voltaren) pravastatin 40 mg tablet 20 mg PO DAILY 06/09/19 09/09/24 06/04/24 History rivaroxaban 20 mg tablet (Xarelto) 20 mg PO DAILY 06/09/19 09/09/24 06/02/24 History aspirin 81 mg capsule 81 mg PO EVERY OTHER DAY 07/31/23 09/09/24 06/04/24 History levothyroxine 50 mcg tablet 50 mcg PO DAILY 06/04/24 09/09/24 06/05/24 History (Synthroid) Allergies Allergy/AdvReac Type Severity Reaction Status Date / Time No Known Allergies Allergy Verified 09/09/24 13:05 Review of Systems Review of Systems: As reviewed above in HPI [facility] Past Medical History Medical History Anemia Elevated fecal calprotectin Heart failure Peripheral edema Hiatal hernia GERD with esophagitis Early satiety Abdominal bloating Nausea BCC (basal cell carcinoma of skin) Surgical History Surgical History History of pacemaker History of tonsillectomy History of Mohs micrographic surgery for skin cancer Family History Family History Mother Hypertension Cerebrovascular accident Social History Social History Social History: Smoking status: Never smoker Second hand tobacco smoke exposure: No Smoking end date: 08/05/1965 Alcohol intake: never Drinks per week: 1 Alcohol use details: SHOT A WEEK Substance use: never Substance use type: does not use Do You Feel Safe in your Home?: Yes Lack of Transportation: No Lack of Food: Never True Current Housing: I Have Housing Concerned About Future Housing: No Difficulty Paying Gas/Electric Bills: No Difficulty Paying for Meds: No Currently Unemployed: YES Education: Don't Know Difficulty w/ Childcare or Family Care: No Living arrangements: with family Occupation/Education: retired Gender identity (if verbalized by the patient): Male Sexual Orientation (if Verbalized by the Patient): Straight or Heterosexual Spiritual care concerns: No Exam Narrative: GENERAL: [Well-appearing, well-nourished, and in no acute distress.] HEAD: [Normocephalic, atraumatic.] EYES: [PERRLA and EOMI.] ENT: The left posterior auricle has a small area of minor oozing of blood from previous biopsy site as well as the inner portion of the tragus and left ear. No tenderness to palpation, no ecchymoses. Ear canal appears clean without any bleeding in the middle ear, TM is clear. Bleeding stopped with direct pressure. NECK: Supple. CHEST: [Clear to auscultation. No respiratory distress.] HEART: [Regular rate and rhythm]. No murmur heard. [Normal peripheral pulses.] ABDOMEN: [Soft, nondistended], [nontender], [No rigidity or guarding] EXTREMITIES: Normal range of motion. [No edema.] SKIN: Warm, dry, no rash. NEURO: [No focal deficits]. Alert and oriented [x3.] PSYCH: [Normal mood and affect.] Course Vital Signs Vital signs: Vital Signs Temperature 36.4 C 10/02/24 04:53 Pulse Rate 74 10/02/24 04:53 Respiratory Rate 15 10/02/24 04:53 Blood Pressure 145/90 H 10/02/24 04:53 Pulse Oximetry 100 10/02/24 04:53 Oxygen Delivery Room Air 10/02/24 04:53 Temperature 36.4 C 10/02/24 04:53 Pulse Rate 74 10/02/24 04:53 Respiratory Rate 15 10/02/24 04:53 Blood Pressure 145/90 H 10/02/24 04:53 Pulse Oximetry 100 10/02/24 04:53 Oxygen Delivery Room Air 10/02/24 04:53 Procedures Other Procedure Procedure 1: Other Procedure: Procedure: Chemical cautery of bleeding site Indication: Persistent oozing of blood from biopsy Note: Patient has 2 spots of previous biopsy into his left ear that has minor oozing of blood. No tenderness to palpation, no overlying infection. Silver nitrate was used to apply chemical cautery with good hemostasis achieved. TXA infused gauze was used to pad the area with compression dressing applied over top. Hemostasis achieved, no complications. Medical Decision Making MDM Narrative Medical decision making narrative: 88-year-old male presenting for bleeding biopsy site at his left ear. He had 2 biopsies of his left ear yesterday morning. Small oozing of blood throughout the day and that persisted today. Take Xarelto for chronic anticoagulation. Also takes baby aspirin. Patient is not any pain, hemodynamically stable. Small oozing of blood from 2 sites from previous biopsy in his left ear. Silver nitrate was used to cauterize the small areas of bleeding with good hemostasis. TXA soaked gauze was used to bandage the ear with a pressure dressing and he was given return precautions and instructions to follow-up with his clinic that did the biopsy. Was told to cut his next dose of Xarelto and aspirin and then resume the next day assuming bleeding has stopped. Patient's questions were answered he was safe for discharge. Vital Signs Vital Signs: Vital Signs Temperature 36.4 C 10/02/24 04:53 Pulse Rate 74 10/02/24 04:53 Respiratory Rate 15 10/02/24 04:53 Blood Pressure 145/90 H 10/02/24 04:53 Pulse Oximetry 100 10/02/24 04:53 Oxygen Delivery Room Air 10/02/24 04:53 Temperature 36.4 C 10/02/24 04:53 Pulse Rate 74 10/02/24 04:53 Respiratory Rate 15 10/02/24 04:53 Blood Pressure 145/90 H 10/02/24 04:53 Pulse Oximetry 100 10/02/24 04:53 Oxygen Delivery Room Air 10/02/24 04:53 Discharge Plan Discharge Clinical Impression: Postprocedural hemorrhage Patient Disposition: Home, Self-Care Condition: Stable Instructions: Antibiotic Form Additional Instructions: Hold your next dose is Xarelto and aspirin this morning, follow-up with regular doctor and go back to the dermatology clinic if this recurs. Return with any new concerns here to the ED. Patient Language: Citizen Of [place] Prescriptions: No Action famotidine 20 mg tablet 20 mg PO BID Qty: 60 3RF allopurinol 100 mg tablet 200 mg PO DAILY Qty: 180 1RF diclofenac sodium [Voltaren] 1 % gel 2 gm TOPICAL QID PRN (Reason: Pain) Xarelto 20 mg tablet 20 mg PO DAILY pravastatin 40 mg tablet 20 mg PO DAILY aspirin 81 mg Capsule 81 mg PO EVERY OTHER DAY levothyroxine [Synthroid] 50 mcg tablet 50 mcg PO DAILY finasteride 5 mg tablet 5 mg PO DAILY Qty: 90 3RF tamsulosin [Flomax] 0.4 mg capsule 0.4 mg PO DAILY Qty: 90 3RF fluticasone propionate 50 mcg/actuation spray,suspension 2 spray NASAL DAILY PRN (Reason: ALLERGIES) Qty: 16 11RF lorazepam [Ativan] 0.5 mg tablet 0.5 mg PO .qhs PRN (Reason: anxiety) Qty: 90 0RF Follow-up/Referrals: UNKNOWN,DOCTOR [Primary Care Provider] - Time of Disposition: 05:28
[2024-10-02 05:32] VITALS: BP 136/80; PULSE 71; RESP 16; O2SAT 100
== END 2024-10-02 05:33 | disposition home or self-care (01) ==
PROVIDERS: Emergency Provider Student in an Organized Health Care Education/Training Program
DX: L76.21 Postprocedural hemorrhage of skin and subcutaneous tissue following a dermatologic procedure (principal); I50.9 Heart failure, unspecified; K44.9 Diaphragmatic hernia without obstruction or gangrene; K21.00 Gastro-esophageal reflux disease with esophagitis, without bleeding; Z95.0 Presence of cardiac pacemaker; Z85.828 Personal history of other malignant neoplasm of skin; Z87.891 Personal history of nicotine dependence; Z86.2 Personal history of diseases of the blood and blood-forming organs and certain disorders involving the immune mechanism; Z79.82 Long term (current) use of aspirin; Z79.899 Other long term (current) drug therapy; Z79.01 Long term (current) use of anticoagulants; Y84.8 Other medical procedures as the cause of abnormal reaction of the patient, or of later complication, without mention of misadventure at the time of the procedure
CPT/HCPCS: 12011; 99282; 99283

== ENCOUNTER 2024-11-25 15:46 | Outpatient (CLI) | payer MEDICARE, OTHER, SELFPAY ==
--- NOTE | ~2024-11-25 | XR_ITS ---
XR abdomen/kub 1V Ordering provider: Caty Gordon APRN History: . MID AND LOWER BELLY PAIN FOR 3 DAYS . Comparison: None. FINDINGS: BOWEL: Slightly distended bowel loops with gases. Nonobstructive bowel gas pattern. ORGANOMEGALY: None. SIGNIFICANT PATHOLOGIC CALCIFICATIONS: None. Calcification seen adjacent to the left inferior pubic ramus stone in the penile urethra is less like ly. Proper images and clinical correlation are advised. OTHER: No free air is seen under the diaphragm. Dextroscoliosis. IMPRESSION: NO ACUTE ABDOMINAL FINDINGS. Reviewed, dictated and finalized at location A.
[2024-11-25 16:18] LABS: Hematocrit 32.7 % (42.0-52.0); Hemoglobin 10.9 g/dL (14.0-18.0); Mean Corpuscular HGB Conc 33.3 g/dl (32-36); Mean Corpuscular Hemoglobin 32.5 pg (26-34); Mean Corpuscular Volume 97.6 fl (80-100); Platelet Count Result 224 k/mm3 (150-375); Red Blood Count 3.35 M/mm3 (4.6-6.20); Red Cell Distribution Width 13.3 % (11.5-14.5)
[2024-11-25 16:49] LABS: Alanine Aminotransferase 33 U/L (6-50); Albumin Level 3.3 g/dL (3.5-5.1); Alkaline Phosphatase 109 U/L (38-126); Anion Gap 6 mmol/L (4-12); Aspartate Amino Transferase 41 U/L (17-59); Bilirubin,Total 0.5 mg/dL (0.2-1.3); Blood Urea Nitrogen 22 mg/dL (9-20); Calcium 8.2 mg/dL (8.4-10.2); Carbon Dioxide 26 mmol/L (22-30); Chloride 99 mmol/L (98-107); Estimated Glomerular Filt Rate > 60; Glucose 114 mg/dL (65-110); Potassium 4.5 mmol/L (3.4-5.0); Sodium 131 mmol/L (137-145)
--- OUTSIDE RECORDS SUMMARY | 2024-11-25 17:30 | XMS_ITS | Referral Summary ---
Author Organization [facility] [place] [address] Address [address] [place] [address] Care Team Providers Care Engineer Specialist Name Role Phone Mohsen Garcia MD Primary Care Provider Encounters Date Type Department Care Team Description 10/20/2024 7:00 AM CDT Ancillary Procedure [facility] Cardiology [address] [facility] [address] [place] [id number] Presence of cardiac pacemaker (Primary Dx); NICM (nonischemic cardiomyopathy) (HCC); Sick sinus syndrome (HCC); Paroxysmal atrial fibrillation (HCC) from Last 3 Months Allergies No known active allergies Medications multivitamin tablet tablet take 1 tablet by oral route every day with food 0 0 3 Active LORazepam (ATIVAN) 0.5 mg tablet take 0.5 tablet by oral route at night time 0 0 4 Active allopurinol (ZYLOPRIM) 100 mg tablet take 2 tabs ORAL route every day 0 0 5 Active tamsulosin (FLOMAX) 0.4 mg capsule,extend ed release 24hr take 1 capsule by oral route every day 1/2 hour following the same meal each day 0 0 5 Active finasteride (PROSCAR) 5 mg tablet take 1 tablet by oral route every day 0 0 6 Active levothyroxine (SYNTHROID, LEVOTHROID) 50 mcg tablet take 1 tablet by oral route every day 0 0 6 Active fluticasone (FLONASE) 50 mcg/actuation nasal spray Administer 1 spray into each nostril daily Active omeprazole (PriLOSEC) 40 mg capsule Take 1 capsule (40 mg total) by mouth 2 (two) times a day Active diclofenac sodium (VOLTAREN) 1 % gel Apply topically Active metroNIDAZOLE (FLAGYL) 500 mg tablet TAKE 1 TABLET BY MOUTH EVERY 8 HOURS FOR 7 DAYS 4 Active lansoprazole (PREVACID) 30 mg capsule 4 Active pravastatin (PRAVACHOL) 20 mg tablet Take 1 tablet (20 mg total) by mouth daily 90 tablet 2 4 Active rivaroxaban (Xarelto) 20 mg tablet Take 1 tablet (20 mg total) by mouth daily 90 tablet 2 5 Active rivaroxaban (Xarelto) 20 mg tablet Take 1 tablet (20 mg total) by mouth daily 90 tablet 5 11/26/19 25 Discontinu ed(Reorder ) Active Problems Problem Noted Date Diagnosed Date Visit for wound check 06/12/2024 Localized edema 10/07/2023 Shortness of breath 03/23/2022 Mixed hyperlipidemia 12/25/2021 Precordial pain 01/22/2019 Dark stools 05/14/2018 Chronic anticoagulation 12/16/2017 Paroxysmal atrial fibrillation 05/22/2017 Double vision 01/16/2017 Benign hypertension 02/13/2016 Overview (11/09/2016): HTN (hypertension), benign Carotid stenosis, right 02/13/2016 Overview (11/09/2016): Bilateral carotid artery stenosis History of stroke 02/13/2016 Overview (11/09/2016): H/O: CVA (cerebrovascular accident) Stenosis of right carotid artery 02/13/2016 Overview (11/09/2016): Stenosis of right carotid artery Presence of cardiac pacemaker 02/13/2016 Overview (06/08/2024): Medtronic Sadaf Dual Pacemaker Dx; SSS, PAT. DOI 06/05/24, chronic leads 07/21/2004. CareSynchrony remote home monitor Q3 mo, Office pacer checks q1 yr. 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 Overview (11/09/2016): Erectile dysfunction Paroxysmal supraventricular tachycardia 01/07/20 14 Overview (11/09/2016): PSVT (paroxysmal supraventricular tachycardia) Arthralgia of shoulder 12/16/2012 Resolved Problems Problem Noted Date Diagnosed Date Resolved Date Dyslipidemia 02/13/2016 03/23/2022 Overview (11/09/2016): Mixed dyslipidemia Social History Tobacco Use Types Packs/Day Years Used Date Smoking Tobacco: Former Smokeless Tobacco: Never Tobacco Cessation:Counseling Given: Not Answered Alcohol Use Standard Drinks/Week Comments Yes 0 (1 standard drink = 0.6 oz pur e alcohol) Sex and Gender Information Value Date Recorded Sex Assigned at Not on file 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 Gender Identity Male 04/13/2021 9:37 AM CDT Sexual Orientation Not on file Last Filed Vital Signs Vital Sign Reading Time Taken Comments Blood Pressure 110/80 02/12/2024 1:00 PM CDT Pulse 67 02/12/2024 1:00 PM CDT Temperature 36.3 C (97.4 F) 04/14/2019 1:05 PM CDT Respiratory Rate 18 04/14/2019 1:05 PM CDT Oxygen Saturation 98% 02/12/2024 1:00 PM CDT Inhaled Oxygen Concentration - - Weight 70.5 kg (155 lb 6.4 oz) 02/12/2024 1:00 P M CDT Height 177.8 cm (5' 10 ) 02/12/2024 1:00 PM CDT Body Mass Index 22.3 02/12/2024 1:00 PM CDT Plan of Treatment Not on file Medical Devices Implanted Type Area Credit Union Examiner Device Identifier Shelf Expiration Date Model / Serial / Lot Pacemaker-2013 Implanted:01/15 by Hugo Thurman MD (Quantity not on file) Pacemaker Chest Medtronic SSS, PAT REVO MRI / [id number] / CHRONIC LEADS 07/2004 Procedures Procedure Name Priority Date/Time Associated Diagnosis Comments DEVICE CHECK - REMOTE Routine 10/21/2024 1:11 PM CDT NICM (nonischemic cardiomyopathy) (HCC) Sick sinus syndrome (HCC) Paroxysmal atrial fibrillation (HCC) from Last 3 Months Results * DEVICE CHECK - REMOTE (10/21/2024 1:11 PM CDT) Anatomical Region Laterality Modality Other Narrative 10/25/2024 8:52 PM CDT Medtronic Dual Pacemaker Dx; SSS, PAT. DOI 06/05/24, chronic leads 07/21/2004. Carelink remote home monitor Q3 mo, Office pacer checks q1 yr. Routine AAIR <> DDDR Pacemaker Remote. Transmission attached. Battery status: 3.19 V, 13.3 years remaining battery life to JOE. Stable lead impedances, pacing and sensing thresholds. Presenting rhythm: A sensed/V sensed AP-30.6%, SLITTER CREASER SLOTTER HELPER-< 0.1% 3 AT/AF episodes noted, longest episode was 5 hours and 12 minutes in duration, IEGM demonstrates AFib. AF [place] 0.2%. 4 Ventricular high rate episodes detected, IEGM demonstrates NSVT with the longest episode lasting 38 seconds. Medications: Xarelto 20 mg See scanned report. Office pacemaker follow up: 11/03/25 CareLink remote f/u 01/27/25. Iam Comer RN Rey Grissom MD [facility] PROCEDURES F inal Result from Last 3 Months Insurance MEDICARE FOR LIFE MEDICARE FOR LIFE Care Teams Engineer Specialist Relationship Specialty Start Date End Date Mohsen Garcia MD [address] [place] [address] PCP - General 12/15/13
--- OUTSIDE RECORDS SUMMARY | 2024-11-25 17:30 | XMS_ITS | Encounter Summary ---
Author Organization [facility] Address [address] [facility] [address] [place] [address] Care Team Providers Care Day Spa Manager Name Role Phone Mohsen Garcia MD Primary Care Provider Encounter Details Date Type Department Care Team (Late st Contact Info) Description 08/08/2016 Orders Only [facility] ProviderGerardo MD [address] [place] [id number] Social History Tobacco Use Types Packs/Day Years Used Date Smoking Tobacco: Former Cigarettes Q uit: 08/05/1964 Alcohol Use Standard Drinks/Week Comments Yes 0 (1 standard drink = 0.6 oz pur e alcohol) Sex and Gender Information Value Date Recorded Sex Assigned at Not on file Legal Sex Male 10:26 AM MANAGER OF MARKETING Gender Identity Male 04/13/2021 9:37 AM CDT Sexual Orientation Not on file documented as of this encounter Plan of Treatment Not on file documented as of this encounter Procedures Procedure Name Priority Date/Time Associated Diagnosis Comments CARDIOLOGY REPORT 08/08/2016 documented in this encounter Results * CARDIOLOGY REPORT (08/08/2016) Anatomical Region Laterality Modality Other Narrative 08/08/2016 Ordered by an unspecified provider. Historical Provider [facility] MARIN LUNA Final Result documented in this encounter Visit Diagnoses Not on filedocumented in this encounter Care Teams Day Spa Manager Relationship Specialty Start Date End Date Mohsen Garcia MD [address] [place], [place] [id number] PCP - General 12/15/13 documented as of this encounter
--- OUTSIDE RECORDS SUMMARY | 2024-11-25 17:30 | XMS_ITS | Clinical Summary ---
Author Organization [facility] Address [facility] [place] [address] Care Team Providers Care Resource Specialist Name Role Phone Mohsen Garcia MD Primary Care Provider [phone] Social History Tobacco Use Types Packs/Day Years Used Date Smoking Tobacco: Never Assessed Sex and Gender Information Value Date Recorded Sex Assigned at Not on file Legal Sex Male 7:49 PM CDT Gender Identity Not on file Sexual Orientation Not on file Plan of Treatment Health Maintenance Due Date Last Done Comments DTaP, Tdap and Td Vaccines ( 1 - Tdap) 11/13/1954 Zoster Vaccines (1 of 2) 11/13/1985 Annual Medicare Wellness Visit 11/13/2000 RSV Immunization or 60+ Years (1 - 1-dose 75+ series) 11/13/2010 Pneumococcal Vaccine: 50+ Ye ars (2 of 2 - PCV) 05/15/2018 05/15/2017 COVID-19 Vaccine (2 - 2023-2 5 season) 2024 11/23/2021 Meningococcal B Vaccine Aged Out No l onger eligible based on patient's age to complete this topic Meningococcal Vaccine Aged Out No david veronica eligible based on patient's age to complete this topic RSV Immunizations Under 20 Months Aged Out No longer eligible based on patient's age to complete this topic Insurance [employer] MEDICARE Care Teams Resource Specialist Relationship Specialty Start Date End Date Mohsen Garcia MD [address] [place] [address] PCP - General FAMILY PRACTICE 02/21/22
--- OUTSIDE RECORDS SUMMARY | 2024-11-25 17:30 | XMS_ITS | Clinical Summary ---
Author Organization [facility] [place] [address] Address [address] [place] [address] Care Team Providers Care Supervisor Wall Mirror Department Name Role Phone Mohsen Garcia MD Primary Care Provider Allergies No known active allergies Medications multivitamin [...] Dyslipidemia 02/13/2016 03/23/2022 Overview (11/09/2016): Mixed dyslipidemia Encounters Date Type Department Care Team Description 10/20/2024 7:00 AM CDT Ancillary Procedure [facility] Cardiology [facility] [phone] Presence of cardiac pacemaker (Primary Dx); NICM (nonischemic cardiomyopathy) (HCC); Sick sinus syndrome (HCC); Paroxysmal atrial fibrillation (HCC) from Last 3 Months Surgical History Surgery Date Site/Laterality Comments CARDIAC PACEMAKER PLACEMENT Cardiac pacemaker Medical History Medical History Date Comments Hx Other Medical SICK SINUS SYND PATY Hx Other Medical Bilateral Carot id Disease Cerebrovascular accident (CVA) (HCC) Stroke Family History Medical History Relation Name Comments Valvular heart disease Father Valvu lar heart disease; Cerebral aneurysm Mother Cerebral a neurysm; Relation Name Status Comments Father Mother Social History Tobacco Use Types Packs/Day Years Used Date Smoking Tobacco: Former Smokeless Tobacco: Never Tobacco Cessation:Counseling Given: Not Answered Alcohol Use Standard Drinks/Week Comments Yes 0 (1 standard drink = 0.6 oz pur e alcohol) Sex and Gender Information Value Date Recorded Sex Assigned at Not on file Legal 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 Gender Identity Male 04/13/2021 9:37 AM CDT Sexual Orientation Not on file Obstetrics History Last Filed Vital Signs Vital Sign Reading [...] 02/12/2024 1:00 PM CDT Plan of Treatment Health Maintenance Due Date Last Done Comments Depression Screening 1935 Fall Risk Assessment 1935 DTaP/Tdap/Td Vaccine (1 - Tdap) 11/13/1946 Hepatitis B Screening 11/13/1953 Zoster Vaccine (1 of 2) 11/13/1985 Well Visit 65+ 11/13/2000 Pneumococcal vaccine 65+ (2 of 2 - PCV) 05/15/2018 05/15/2017 Influenza Vaccine (Season Ended) 2025 05/05/2018, 05/15/2017, 05/02/2016, Additional history exists Medical Devices Implanted Type Area Lead Software Qa Engineer Device Identifier Shelf Expiration Date Model / Serial / Lot Pacemaker-2013 Implanted:01/15 by Hugo Thurman MD (Quantity not on file) Pacemaker Chest Medtronic SSS, PAT REVO MRI / [id number] / CHRONIC LEADS 07/2004 Procedures Procedure Name [...] thresholds. Presenting rhythm: A sensed/V sensed AP-30.6%, LITIGATION SECRETARY-< 0.1% 3 AT/AF episodes noted, longest episode was 5 hours and 12 minutes in duration, IEGM demonstrates AFib. AF [place] 0.2%. 4 Ventricular high rate episodes detected, IEGM demonstrates NSVT with the longest episode lasting 38 seconds. Medications: Xarelto 20 mg See scanned report. Office pacemaker follow up: 11/03/25 CareLink remote f/u 01/27/25. Iam Comer, RN us Rey Grissom MD [facility] PROCEDURES F inal Result from Last 3 Months Insurance MEDICARE Load [employer] MEDICARE FOR LIFE Care Teams Supervisor Wall Mirror Department Relationship Specialty Start Date End Date Mohsen Garcia MD [address] [facility] [address] [place] [address] PCP - General 12/15/13
--- OUTSIDE RECORDS SUMMARY | 2024-11-25 17:30 | XMS_ITS | Encounter Summary ---
Author Organization [facility] Address [address] [facility] [address] [place] [address] Care Team Providers Care Engine Repairer Production Name Role Phone Mohsen Garcia MD Primary Care Provider Encounter Details Date Type Department Care Team (Late st Contact Info) Description 2016 Orders Only [facility] ProviderGerardo MD [address] [place] [address] Social History Tobacco Use Types Packs/Day Years Used Date Smoking Tobacco: Former Cigarettes Q uit: 08/05/1964 Alcohol Use Standard Drinks/Week Comments Yes 0 (1 standard drink = 0.6 oz pur e alcohol) Sex and Gender Information Value Date Recorded Sex Assigned at Not on file 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 Historical Provider [facility] MARIN LUNA Final Result documented in this encounter Visit Diagnoses Not on filedocumented in this encounter Care Teams Engine Repairer Production Relationship Specialty Start Date End Date Mohsen Garcia MD [address] [place], [place] [id number] PCP - General 12/15/13 documented as of this encounter
== END 2024-11-25 15:47 | disposition home or self-care (01) ==
PROVIDERS: PCP Family Medicine; Visit Provider Nurse Practitioner
DX: R19.15 Other abnormal bowel sounds (principal); K52.9 Noninfective gastroenteritis and colitis, unspecified
CPT/HCPCS: 36415; 74018; 80053; 85027

== ENCOUNTER 2024-12-02 08:56 | Outpatient (CLI) | payer MEDICARE, OTHER, SELFPAY ==
--- NOTE | ~2024-12-02 | CT_ITS ---
EXAMINATION: CT abdomen pelvis w con DATE: 12/02/2024 09:37 INDICATION: Abdominal distention TECHNIQUE: Computed tomography (CT) of the abdomen and pelvis was performed with 100 mL Omnipaque-350 intravenous contrast. Automated exposure control and iterative reconstruction technique were employe d. The dose-length product was 496.22 mGy-cm. COMPARISON: 09/24/2023 FINDINGS: There is interval increase in the interstitial pattern in the bilateral lower lung zones which could remains relatively stable between 2019 and 2023. In addition there are new small bilateral pleural ef fusions and new regions of groundglass opacity in the bilateral lower lungs. This could be due to pro gression of nonspecific interstitial pneumonia (NSIP) pattern chronic interstitial lung disease or mo re likely acute mild pulmonary edema superimposed over the NSIP pattern chronic interstitial lung dis ease. Heart size is normal. Aortic valve and mitral annular calcification. No pericardial effusion. D ual-lead cardiac pacemaker with lead tips at the right atrial appendage and apex of the right ventric le. Small sliding-type hiatal hernia. Liver, gallbladder, spleen, pancreas, bilateral adrenal glands and kidneys are normal. No bowel obstr uction. There is a 4.4 x 4.4 x 3.1 cm gas and fluid collection with some nonuniform peripheral enhanc ement situated within the mesentery of the central abdomen consistent with a likely viscus perforatio n and early organizing abscess. There is wall thickening of portion of the adjacent sigmoid colon and distal ileum. There are scattered diverticula along the colon including the sigmoid colon and could and could not exclude that this represents sequela of perforated diverticulitis. There does however a ppear to be inflammatory stranding extending between the abscess and the tip the cecum along what pepe ears to be the enhancing appendix and would favor perforated appendicitis as etiology. There is addit ional small amount of non-organized ascites in the deep pelvis. Bladder is normal. Prostatomegaly. Mi ld lumbar dextroscoliosis with severe lumbar and moderate thoracic spondylosis. IMPRESSION: 1. Perforated appendicitis with 4.4 x 4.4 x 3.1 cm organizing abscess in the central abdomen at the t ip of the inflamed appendix. Differential would include less likely perforated sigmoid diverticulitis . Dr. Fuentes discussed these findings with Dr. Gordon at 9:55 AM. 2. Mild pulmonary edema and small bilateral pleural effusions in the visualized lower lungs superimpo sed over NSIP pattern chronic interstitial lung disease. 3. Small amount of nonloculated ascites in the deep pelvis. Reviewed, dictated and finalized at location B. IMPRESSION: 1. Perforated appendicitis with 4.4 x 4.4 x 3.1 cm organizing abscess in the ce ntral abdomen at the tip of the inflamed appendix. Differential would include l ess likely perforated sigmoid diverticulitis. Dr. Fuentes discussed these find ings with Dr. Gordon at 9:55 AM. 2. Mild pulmonary edema and small bilateral pleural effusions in the visualized lower lungs superimposed over NSIP pattern chronic interstitial lung disease. 3. Small amount of nonloculated ascites in the deep pelvis.
[2024-12-02 09:20] LABS: Estimated Glomerular Filt Rate > 60
== END 2024-12-02 08:57 | disposition home or self-care (01) ==
LOC: MICIMG 08:58
PROVIDERS: PCP Family Medicine; Visit Provider Nurse Practitioner
DX: R14.0 Abdominal distension (gaseous) (principal); R19.15 Other abnormal bowel sounds; R93.3 Abnormal findings on diagnostic imaging of other parts of digestive tract; K52.9 Noninfective gastroenteritis and colitis, unspecified; R93.89 Abnormal findings on diagnostic imaging of other specified body structures
CPT/HCPCS: 74177; Q9967

== ENCOUNTER 2024-12-02 10:27 | Inpatient (IN) | payer MEDICARE, OTHER, SELFPAY ==
--- NOTE | ~2024-12-02 | US_ITS ---
EXAMINATION: CT guide absc cath placement, US abdomen limited DATE: 12/04/2024 13:39 INDICATION: 89-year-old gentleman with more than 2 weeks of abdominal pain presents with perforated a ppendicitis with a 4.4 cm organizing fluid collection within the central abdomen for CT-guided draina ge. Of note, the fluid collection is relatively well protected by both transverse colon as well as sm all bowel, with the safe window measuring between 10 to 12 mm along the anterior abdominal wall. Hydr odissection was planned. TECHNIQUE: The procedure including the risks, benefits, and alternatives was discussed with the patie nt. Risks discussed included bleeding, nontargeted drainage and worsening infection. The patient understood the risks and benefits and agreed to proceed. The skin overlying the anterior abdominal wall was prepped and draped in usual sterile fashion. Anes thetic was administered with 1% lidocaine without epinephrine subcutaneously. A 5 [place] one-step cat heter was advanced into the anterior abdomen at multiple sites. Despite numerous attempts, likely is secondary to peristalsis, no safe window was identified. Attempt was then made with ultrasound guidance, which was also unsuccessful. The collection, measuring 3.8 x 1.5 cm was surrounded by bowel loops, precluding a safe window for ac cess. The procedure was aborted at this point. Steri-Strips and a sterile dressing was applied. The dose-length product was 900.22 mGy-cm. Postprocedure imaging demonstrated multiple punctate foci of air within the surrounding mesentery, co nsistent with intervention. IMPRESSION: Unsuccessful/aborted CT and ultrasound-guided drainage of a well protected intra-abdominal abscess, a t the root of the mesentery, surrounded by bowel, precluding a safe window, as detailed above. These findings were discussed with Dr. Elaine at the time of examination and interpretation. Reviewed, dictated and finalized at location A. IMPRESSION: Unsuccessful/aborted CT and ultrasound-guided drainage of a well protected intr a-abdominal abscess, at the root of the mesentery, surrounded by bowel, preclud ing a safe window, as detailed above. These findings were discussed with Dr. Elaine at the time of examination and i nterpretation.
[2024-12-02 10:31] VITALS: BP 129/71; PULSE 89; RESP 20; TEMP 36.7; O2SAT 100
[2024-12-02 11:25] LABS: Add Urine Microscopic? YES
[2024-12-02 11:26] LABS: Appearance Urine Clear (Clear); Bacteria Urine None Seen /hpf; Blood Urine 2+ (Negative); Color Urine Yellow (Yellow); Glucose Urine UA Negative (Negative); Non Pathogenic Casts 0-2; Protein Urine Negative (Negative); RBC Urine 21-50 /hpf (0-2); Specific Grav Ur 1.015 (1.001-1.035); Squamous Epithelial Cell Urine None Seen /hpf (Few); WBC Urine 0-5 /hpf (0-3); pH Urine 7.5 (5.0-9.0)
[2024-12-02 11:27] LABS: Basophils Percent Auto 0.2 % (0.2-1.2); Eosinophils Absolute Auto 0.1 K/mm3 (0-0.3); Eosinophils Percent Auto 0.4 % (0-4.4); Hematocrit 33.3 % (42.0-52.0); Hemoglobin 11.1 g/dL (14.0-18.0); Immature Granulocyte Absolute 0.05 K/mm3 (0.00-0.031); Immature Granulocyte Percent A 0.4 % (0-0.5); Lymphocytes Absolute Auto 0.59 K/mm3 (0.9-3.2); Lymphocytes Percent Auto 4.8 % (18.3-44.2); Mean Corpuscular HGB Conc 33.3 g/dl (32-36); Mean Corpuscular Hemoglobin 31.9 pg (26-34); Mean Corpuscular Volume 95.7 fl (80-100); Mean Platelet Volume 10.3 fl (7.4-10.4); Monocytes Percent Auto 8.4 % (2.6-8.5); Neutrophils Absolute Auto 10.6 K/mm3 (1.3-6.7); Neutrophils Percent Auto 85.8 % (45.5-73.1); Platelet Count Result 325 k/mm3 (150-375); Red Blood Count 3.48 M/mm3 (4.6-6.20); Red Cell Distribution Width 13.1 % (11.5-14.5); White Blood Count 12.3 K/mm3 (4.5-10.0)
[2024-12-02 11:27] LABS: Bilirubin Urine Negative (Negative); Ketones Urine Negative (Negative); Leukocyte Esterase Ur Negative LEU/UL (Negative); Nitrate Urine Negative (Negative); Urobilinogen Urine 0.2 mg/dL (<2.0)
[2024-12-02 11:39] LABS: Alanine Aminotransferase 33 U/L (6-50); Albumin Level 3.2 g/dL (3.5-5.1); Alkaline Phosphatase 104 U/L (38-126); Anion Gap 7 mmol/L (4-12); Aspartate Amino Transferase 45 U/L (17-59); Bilirubin,Total 0.9 mg/dL (0.2-1.3); Blood Urea Nitrogen 16 mg/dL (9-20); Carbon Dioxide 25 mmol/L (22-30); Chloride 96 mmol/L (98-107); Estimated CRCL calculation 49 ml/min; Estimated Glomerular Filt Rate > 60; Glucose 94 mg/dL (65-110); Potassium 4.6 mmol/L (3.4-5.0); Sodium 128 mmol/L (137-145)
--- OUTSIDE RECORDS SUMMARY | 2024-12-02 11:39 | XMS_ITS | Clinical Summary ---
Author Organization [facility] [place] [facility] [place] [address] Address [address] [place] [address] Care Team Providers Care Cut Plug Packer Name Role Phone Mohsen Garcia MD Primary [...] total) by mouth daily 90 tablet 5 Active rivaroxaban (Xarelto) 20 mg tablet Take 1 tablet (20 mg total) by mouth daily 90 tablet 5 11/26/19 Discontinu ed(Reorder ) rivaroxaban (Xarelto) 20 mg tablet Take 1 tablet (20 mg total) by mouth daily 90 tablet 2 5 11/28/19 Discontinu ed(Reorder ) Active Problems Problem Noted [...] Encounters Date Type Department Care Team Description 11/27/2024 Telephone [facility] Cardiology [address] [place] [address] Rey Grissom MD Med Refill 10/20/2024 7:00 AM CDT Ancillary Procedure [facility] Medical [facility] Cardiology [address] [facility] [address] [address] Presence of cardiac pacemaker (Primary Dx); [...] on file Legal Sex Male 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 Presenting rhythm: A sensed/V sensed AP-30.6%, DIGITAL FIELD SERVICE TECHNICIAN-< 0.1% 3 AT/AF episodes noted, longest episode was 5 hours and 12 minutes in duration, IEGM demonstrates AFib. AF [place] 0.2%. 4 Ventricular high rate episodes detected, IEGM demonstrates NSVT with the longest episode lasting 38 seconds. Medications: Xarelto 20 mg See scanned report. Office pacemaker follow up: 11/03/25 [facility] remote f/u 01/27/25. Iam Comer, LOVELY Rey Grissom MD CV CARDIAC SERVICES PROCEDURES F inal Result from Last 3 Months Insurance MEDICARE [employer] MEDICARE [facility] Address: [address] [address] [place] [address] FOR LIFE Care Teams Cut Plug Packer Relationship Specialty Start Date End Date Mohsen Garcia MD [address] [place] [address] PCP - General 12/15/13
--- OUTSIDE RECORDS SUMMARY | 2024-12-02 11:39 | XMS_ITS | Clinical Summary ---
Author Organization [facility] Address [address] [place] [address] Care Team Providers Care Medication Administration Professional Name Role Phone Mohsen Garcia MD Primary Care Provider [phone] Social History Tobacco Use Types Packs/Day Years [...] this topic Insurance HUMANA MEDICARE Care Teams Medication Administration Professional Relationship Specialty Start Date End Date Mohsen Garcia MD [address] [place] [address] PCP - General FAMILY PRACTICE 02/21/22
--- OUTSIDE RECORDS SUMMARY | 2024-12-02 11:39 | XMS_ITS | Referral Summary ---
Author Organization [facility] [place] [address] Address [address] [place] [address] Care Team Providers Care Manager House Name Role Phone Mohsen Garcia MD Primary Care Provider Encounters Date Type Department Care Team Description 11/27/2024 Telephone [facility] Medical [facility] Cardiology [address] [place] [address] [address] [place] [address] Rey Grissom MD Med Refill 10/20/2024 7:00 AM CDT Ancillary Procedure [facility] Medical [facility] Cardiology [address] [facility] [address] [place] [address] Presence of cardiac pacemaker (Primary Dx); [...] on file 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 Presenting rhythm: A sensed/V sensed AP-30.6%, MODEL MAKER FIBERGLASS-< 0.1% 3 AT/AF episodes noted, longest episode was 5 hours and 12 minutes in duration, IEGM demonstrates AFib. AF [place] 0.2%. 4 Ventricular high rate episodes detected, IEGM demonstrates NSVT with the longest episode lasting 38 seconds. Medications: Xarelto 20 mg See scanned report. Office pacemaker follow up: 11/03/25 [facility] remote f/u 01/27/25. Iam Comer, RN us Rey Grissom MD CV CARDIAC SERVICES PROCEDURES F inal Result from Last 3 Months Insurance MEDICARE FOR LIFE MEDICARE FOR LIFE Care Teams Manager House Relationship Specialty Start Date End Date Mohsen Garcia MD [address] [facility] [address] [facility] [address] [place] [phone] PCP - General 12/15/13
--- OUTSIDE RECORDS SUMMARY | 2024-12-02 11:39 | XMS_ITS | Encounter Summary ---
Author Organization [facility] Address [address] [facility] [address] [place] [address] Care Team Providers Care Twine Winder Name Role Phone Mohsen Garcia MD Primary Care Provider Encounter Details Date Type Department Care Team (Late st Contact Info) Description 2016 Orders Only [facility] ProviderGerardo MD [address] [place] [address] Social History Tobacco Use Types Packs/Day Years Used Date Smoking Tobacco: Former Cigarettes Q uit: 08/05/1964 Alcohol Use Standard Drinks/Week Comments Yes 0 (1 standard drink = 0.6 oz pur e alcohol) Sex and Gender Information Value Date Recorded Sex Assigned at Not on file 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
--- OUTSIDE RECORDS SUMMARY | 2024-12-02 11:39 | XMS_ITS | Encounter Summary ---
Author Organization [facility] Address [address] [facility] [address] [place] [address] Care Team Providers Care Human Resources Benefits Administrator Name Role Phone Mohsen Garcia MD Primary Care Provider Encounter Details Date Type Department Care Team (Late st Contact Info) Description 08/08/2016 Orders Only [facility] ProviderGerardo MD [address] [place] [address] Social History Tobacco Use Types Packs/Day Years Used Date Smoking Tobacco: Former Cigarettes Q uit: 08/05/1964 Alcohol Use Standard Drinks/Week Comments Yes 0 (1 standard drink = 0.6 oz pur e alcohol) Sex and Gender Information Value Date Recorded Sex Assigned at Not on file 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
[2024-12-02 11:46] LABS: INR 2.6; Prothrombin Time 28.5 Seconds (11.1-14.7)
[2024-12-02 11:47] LABS: Partial Thromboplastin Time 48.3 Seconds (22.3-36.8)
[2024-12-02 12:23] VITALS: BP 110/59; PULSE 78; RESP 20; O2SAT 98
[2024-12-02] MEDS: PIPERACILLN/TAZ 3.375GM/NS50ML 3.375 GM/50 ML BAG IVPB ×3 (12:53→23:34)
--- NOTE | 2024-12-02 12:54 | ED_ITS ---
HPI - Abdominal Pain General Chief Complaint: Abdominal Pain Stated Complaint: sent by GI Time Seen by Provider: 12/02/24 10:59 History of Present Illness HPI narrative: Patient is an 89-year-old male who presents ER with abdominal pain. Ongoing over last month. Has been followed by GI. Had outpatient CT scan performed today that showed perforated appendicitis with abscess. He still has some mild abdominal discomfort. He was having diarrhea but that has resolved. Denies fevers or chills or sweats. He had been out eating at [employer] when he got the phone call Related Data Home Medications ?Medication ?Instructions ?Recorded ?Confirmed ?Last Taken ?Type diclofenac sodium 1 % topical gel 2 gm topical QID PRN Pain 06/09/19 11/25/24 11/10/23 History (Voltaren) pravastatin 40 mg tablet 20 mg PO DAILY 06/09/19 12/02/24 06/04/24 History rivaroxaban 20 mg tablet (Xarelto) 20 mg PO DAILY 06/09/19 12/02/24 06/02/24 History aspirin 81 mg capsule 81 mg PO EVERY OTHER DAY 07/31/23 12/02/24 06/04/24 History Allergies Allergy/AdvReac Type Severity Reaction Status Date / Time No Known Allergies Allergy Verified 11/25/24 14:42 Review of Systems 2 Review of Systems: All systems reviewed & are unremarkable except as noted in HPI and below Constitutional: Constitutional: Reports no additional constitutional complaints Cardiovascular: Cardiovascular: Reports no additional cardiovascular complaints Respiratory: Respiratory: Reports no additional respiratory complaints Gastrointestinal: Gastrointestinal: Reports no additional gastrointestinal complaints [facility] Past Medical History Medical History Pulmonary fibrosis, unspecified CVA (cerebral vascular accident) Carotid stenosis, right Carotid duplex in 2023 - showed 50-69% stenosis right ICA, <50% in left ICA Anemia Elevated fecal calprotectin Heart failure Peripheral edema Hiatal hernia GERD with esophagitis BCC (basal cell carcinoma of skin) Surgical History Surgical History History of colonoscopy Last in November 2023 d/t previous episode of colitis, with findings of diverticulosis, polyps, and internal hemorrhoids History of pacemaker History of tonsillectomy History of Mohs micrographic surgery for skin cancer Family History Family History Mother Hypertension Cerebrovascular accident Social History Social History Social History: Smoking status: Never smoker Second hand tobacco smoke exposure: No Smoking end date: 08/05/1965 Alcohol intake: current Drinks per week: 1 Alcohol use details: SHOT A WEEK Substance use: never Substance use type: does not use Do You Feel Safe in your Home?: Yes Lack of Transportation: No Lack of Food: Never True Current Housing: I Have Housing Concerned About Future Housing: No Difficulty Paying Gas/Electric Bills: No Difficulty Paying for Meds: No Currently Unemployed: No Education: High School Diploma/GED Difficulty w/ Childcare or Family Care: No Living arrangements: with family Occupation/Education: retired Gender identity (if verbalized by the patient): Male Sexual Orientation (if Verbalized by the Patient): Straight or Heterosexual Spiritual care concerns: No Exam 2 Narrative: GENERAL: Well-appearing, well-nourished, and in no acute distress. HEAD: Normocephalic, atraumatic. ENT: Mucous membranes moist. CHEST: Clear to auscultation. No respiratory distress. HEART: Regular rate and rhythm. Normal peripheral pulses. ABDOMEN: Soft, nontender, nondistended. EXTREMITIES: Normal range of motion. No edema. SKIN: Warm, dry, no rash. NEURO: Alert and oriented x3. PSYCH: Normal mood and affect. Course Course Emergency Course: 1240: Discussed with Dr. Elaine. IV abx, surgery consult, hospitalist admit. Vital Signs Vital signs: Vital Signs Temperature 98.1 F 12/02/24 10:31 Pulse Rate 89 12/02/24 10:31 Respiratory Rate 20 12/02/24 10:31 Blood Pressure 129/71 12/02/24 10:31 Pulse Oximetry 100 12/02/24 10:31 Oxygen Delivery Room Air 12/02/24 10:31 Temperature 97.3 F L 12/02/24 15:28 Pulse Rate 81 12/02/24 15:28 Respiratory Rate 18 12/02/24 15:28 Blood Pressure 130/76 12/02/24 15:28 Pulse Oximetry 100 12/02/24 15:28 Oxygen Delivery Room Air 12/02/24 16:00 MDM - Abdominal Pain Lab Data 12/02/24 11:19 12/02/24 11:19 Labs: Lab Results 12/02/24 12/02/24 Range/Units 11:02 11:19 WBC 12.3 H (4.5-10.0) K/mm3 RBC 3.48 L (4.6-6.20) M/mm3 Hgb 11.1 L (14.0-18.0) g/dL Hct 33.3 L (42.0-52.0) % MCV 95.7 (80-100) fl MCH 31.9 (26-34) pg MCHC 33.3 (32-36) g/dl RDW 13.1 (11.5-14.5) % Plt Count 325 (150-375) k/mm3 MPV 10.3 (7.4-10.4) fl Immature Gran % (Auto) 0.4 (0-0.5) % Neut % (Auto) 85.8 H (45.5-73.1) % Lymph % (Auto) 4.8 L (18.3-44.2) % [place] % (Auto) 8.4 (2.6-8.5) % Eos % (Auto) 0.4 (0-4.4) % Baso % (Auto) 0.2 (0.2-1.2) % Lymph # (Auto) 0.59 L (0.9-3.2) K/mm3 [place] # (Auto) 1.0 H (0.1-0.6) K/mm3 Eos # (Auto) 0.1 (0-0.3) K/mm3 Baso # (Auto) 0.0 (0.0-0.1) K/mm3 Abs Immat Gran (auto) 0.05 H (0.00-0.031) K/mm3 Absolute Neuts (auto) 10.6 H (1.3-6.7) K/mm3 Absolute Nucleated RBC 0.000 (0.0-0.012) K/mm3 Nucleated RBC % 0.0 (0.0-0.2) % PT 28.5 H (11.1-14.7) Seconds INR 2.6 APTT 48.3 H (22.3-36.8) Seconds Sodium 128 L (137-145) mmol/L Potassium 4.6 (3.4-5.0) mmol/L Chloride 96 L (98-107) mmol/L Carbon Dioxide 25 (22-30) mmol/L Anion Gap 7 (4-12) mmol/L BUN 16 (9-20) mg/dL Creatinine 0.88 (0.7-1.3) mg/dL Estim Creat Clear Calc 49 ml/min Estimated GFR > 60 (59 - ) Glucose 94 (65-110) mg/dL Calcium 8.0 L (8.4-10.2) mg/dL Total Bilirubin 0.9 (0.2-1.3) mg/dL AST 45 (17-59) U/L ALT 33 (6-50) U/L Alkaline Phosphatase 104 (38-126) U/L Total Protein 6.0 L (6.3-8.2) g/dL Albumin 3.2 L (3.5-5.1) g/dL Urine Color Yellow (Yellow) Urine Appearance Clear (Clear) Urine pH 7.5 (5.0-9.0) Ur Specific [place] 1.015 (1.001-1.035) Urine Protein Negative (Negative) mg/dL Urine Glucose (UA) Negative (Negative) mg/dL Urine Ketones Negative (Negative) mg/dL Ur Blood (Man) 2+ H (Negative) Urine Nitrate Negative (Negative) Urine Bilirubin Negative (Negative) Urine Urobilinogen 0.2 (<2.0) mg/dL Leukocyte Esterase Rfl Negative (Negative) ATIYA/UL Urine RBC 21-50 H (0-2) /hpf Urine WBC 0-5 (0-3) /hpf Ur Squamous Epith Cells None seen (Few) /hpf Urine Bacteria None seen /hpf Urine Casts 0-2 Discharge Plan Discharge Clinical Impression: Acute appendicitis with peritoneal abscess Patient Disposition: Still a Patient Condition: Stable
--- OUTSIDE RECORDS SUMMARY | 2024-12-02 13:03 | XMS_ITS | Clinical Summary ---
Author Organization [facility] Address [address] [place] [address] Care Team Providers Care Business Systems Technician Name Role Phone Mohsen Garcia MD Primary Care Provider Social History Tobacco Use Types Packs/Day Years [...] this topic Insurance [employer] MEDICARE Care Teams Business Systems Technician Relationship Specialty Start Date End Date Mohsen Garcia MD [address] [place] [address] PCP - General FAMILY PRACTICE 02/21/22
--- OUTSIDE RECORDS SUMMARY | 2024-12-02 13:03 | XMS_ITS | Encounter Summary ---
Author Organization [facility] Medical [facility] Address [address] [facility] [address] [place] [address] Care Team Providers Care Harness Mender Name Role Phone Mohsen Garcia MD Primary Care Provider Encounter Details Date Type Department Care Team (Late st Contact Info) Description 08/08/2016 Orders Only [facility] ProviderGerardo MD [address] [place] [address] Social History Tobacco Use Types Packs/Day Years Used Date Smoking Tobacco: Former Cigarettes Q uit: 08/05/1964 Alcohol Use Standard Drinks/Week Comments Yes 0 (1 standard drink = 0.6 oz pur e alcohol) Sex and Gender Information Value Date Recorded Sex Assigned at Not on file 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
--- OUTSIDE RECORDS SUMMARY | 2024-12-02 13:03 | XMS_ITS | Referral Summary ---
Author Organization [facility] [place] [address] [facility] [address] [place] [address] Care Team Providers Care Engagement Liaison Name Role Phone Mohsen Garcia MD Primary Care Provider Encounters Date Type Department Care Team Description 11/27/2024 Telephone [facility] Medical [facility] Cardiology [address] [place] [address] [address] [place] [address] Rey Grissom MD Med Refill 10/20/2024 7:00 AM CDT Ancillary Procedure [facility] Medical [facility] Cardiology [address] [facility] [address] [place] [address] Presence of cardiac pacemaker (Primary Dx); [...] on file 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 Presenting rhythm: A sensed/V sensed AP-30.6%, QUALITY CONTROL CHECKER-< 0.1% 3 AT/AF episodes noted, longest episode was 5 hours and 12 minutes in duration, IEGM demonstrates AFib. AF [place] 0.2%. 4 Ventricular high rate episodes detected, IEGM demonstrates NSVT with the longest episode lasting 38 seconds. Medications: Xarelto 20 mg See scanned report. Office pacemaker follow up: 11/03/25 [facility] remote f/u 01/27/25. Iam Comer, RN us Rey Grissom MD CV CARDIAC SERVICES PROCEDURES F inal Result from Last 3 Months Insurance MEDICARE FOR LIFE MEDICARE FOR LIFE Care Teams Engagement Liaison Relationship Specialty Start Date End Date Mohsen Garcia MD [address] [facility] [address] [facility] [address] [place] [phone] PCP - General 12/15/13
--- OUTSIDE RECORDS SUMMARY | 2024-12-02 13:03 | XMS_ITS | Encounter Summary ---
Author Organization [facility] Medical [facility] Address [address] [facility] [address] [place] [address] Care Team Providers Care Diesel Machinist Name Role Phone Mohsen Garcia MD Primary Care Provider Encounter Details Date Type Department Care Team (Late st Contact Info) Description 2016 Orders Only [facility] ProviderGerardo MD [address] [place] [address] Social History Tobacco Use Types Packs/Day Years Used Date Smoking Tobacco: Former Cigarettes Q uit: 08/05/1964 Alcohol Use Standard Drinks/Week Comments Yes 0 (1 standard drink = 0.6 oz pur e alcohol) Sex and Gender Information Value Date Recorded Sex Assigned at Not on file 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
--- OUTSIDE RECORDS SUMMARY | 2024-12-02 13:03 | XMS_ITS | Clinical Summary ---
Author Organization [facility] [address] Address [address] [place] [address] Care Team Providers Care Candy Cutter Machine Name Role Phone Mohsen Garcia MD Primary [...] Type Department Care Team Description 11/27/2024 Telephone [facility] Cardiology [address] [place] [address] Rey Grissom MD Med Refill 10/20/2024 7:00 AM CDT Ancillary Procedure [facility] Medical [facility] Cardiology [address] [facility] [address], [place] [address] Presence of cardiac pacemaker (Primary [...] on file 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 Stable lead impedances, pacing and sensing thresholds. Presenting rhythm: A sensed/V sensed AP-30.6%, SPORTS STATISTICIAN-< 0.1% 3 AT/AF episodes noted, longest episode was 5 hours and 12 minutes in duration, IEGM demonstrates AFib. AF [place] 0.2%. 4 Ventricular high rate episodes detected, IEGM demonstrates NSVT with the longest episode lasting 38 seconds. Medications: Xarelto 20 mg See scanned report. Office pacemaker follow up: 11/03/25 [facility] remote f/u 01/27/25. Iam Cmoer, LOVELY Rey Grissom MD CV CARDIAC SERVICES PROCEDURES F inal Result from Last 3 Months Insurance MEDICARE [employer] MEDICARE FOR LIFE Care Teams Candy Cutter Machine Relationship Specialty Start Date End Date Mohsen Garcia MD [address] [place] [address] PCP - General 12/15/13
[2024-12-02] MEDS: SODIUM CHLORIDE 0.9% IV 1,000 ML 125 ML IV CONT ×2 (13:53→23:33)
[2024-12-02 14:01] VITALS: BP 124/76; PULSE 78; RESP 14; O2SAT 98
--- NOTE | 2024-12-02 15:05 | P.CONGS_ITS ---
Assessment and Plan Assessment and plan (1) Acute appendicitis with perforation and peritoneal abscess: Code(s): K35.33 - Acute appendicitis with perforation, localized peritonitis, and gangrene, with abscess Status: Acute Assessment and Plan: CT findings of perforated appendicitis with 4.4 cm abscess. His symptoms have been ongoing for 2 weeks. He does not appear septic and is actually very comfortable with minimal pain or tenderness. No signs of peritonitis on exam. We would recommend to continue broad-spectrum IV antibiotics for now and closely monitor. He is at an advanced age with multiple co-morbidities and is anticoagulated, which increases his surgical risks. We will see how he progresses on IV antibiotics and review the CT scan of the abdomen and pelvis with the Radiologist to see if the abscess would be amenable to percutaneous drainage. Continue to hold his Xarelto. Will continue to follow along with serial abdominal exams and labs. 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 Elaine. History of Present Illness Consult details Consult date: 12/02/24 Reason for consult: other (Perforated appendicitis) Requesting physician: Breezy Moore MD Narrative: This is an 89-year-old man with PMH of sick sinus syndrome with pacemaker, paroxysmal atrial fibrillation on Xarelto, CVA, PAD/right carotid artery stenosis, pulmonary fibrosis, and multiple other medical problems, who we have been asked to see in surgical consultation for perforated appendicitis. He presented to the ED today with abdominal pain that has been ongoing x 2 weeks. He was evaluated by GI as an outpatient almost a week ago and was initially felt to potentially have gastroenteritis as he was having abdominal cramping, vomiting, and diarrhea 2 weeks ago. The vomiting and diarrhea lasted 1 day, then resolved, but his abdominal pain persisted. He describes the pain as going across his entire lower abdomen and at times radiating into his lower back. The pain is aggravated by bending over and squatting down to sit in a chair. He additionally reports chills and sweats over the past few days, but is unsure if he had a fever. Outpatient labs and a KUB was ordered last week by GI, and unremarkable. He was started on iron for anemia. CT scan of the abdomen and pelvis was also ordered, which got approved as an outpatient and was done today. This showed findings consistent with perforated appendicitis with a 4.4 x 4.4 x 3.1 cm organizing abscess in the central abdomen at the tip of the inflamed appendix, mild pulmonary edema and small bilateral pleural effusions, and small amount of non loculated ascites in the deep pelvis. He was directed to the ED for further evaluation[place] [id number]. He was started on IV Zosyn and IV fluids. He appears very comfortable in bed and is not having much abdominal pain at this time. He describes it more as a slight discomfort. No other specific complaints. He has never had any abdominal surgery. His CVA occurred about 10 years ago and he has no residual issues. His last dose of Xarelto was last night around 5pm. Review of Systems 2 Review of Systems: All systems reviewed & are unremarkable except as noted in HPI and below PMFSH Past Medical History Medical History Pulmonary fibrosis, unspecified CVA (cerebral vascular accident) Carotid stenosis, right Carotid duplex in 2023 - showed 50-69% stenosis right ICA, <50% in left ICA Anemia Elevated fecal calprotectin Heart failure Peripheral edema Hiatal hernia GERD with esophagitis BCC (basal cell carcinoma of skin) Surgical History Surgical History History of colonoscopy Last in November 2023 d/t previous episode of colitis, with findings of diverticulosis, polyps, and internal hemorrhoids History of pacemaker History of tonsillectomy History of Mohs micrographic surgery for skin cancer Family History Family History Mother Hypertension Cerebrovascular accident Social History Social History Social History: Smoking status: Never smoker Second hand tobacco smoke exposure: No Smoking end date: 08/05/1965 Alcohol intake: never Drinks per week: 1 Alcohol use details: SHOT A WEEK Substance use: never Substance use type: does not use Do You Feel Safe in your Home?: Yes Lack of Transportation: No Lack of Food: Never True Current Housing: I Have Housing Concerned About Future Housing: No Difficulty Paying Gas/Electric Bills: No Difficulty Paying for Meds: No Currently Unemployed: YES Education: Don't Know Difficulty w/ Childcare or Family Care: No Living arrangements: with family Occupation/Education: retired Gender identity (if verbalized by the patient): Male Sexual Orientation (if Verbalized by the Patient): Straight or Heterosexual Spiritual care concerns: No Meds Home Medications and Allergies Home Medications ?Medication ?Instructions ?Recorded ?Confirmed ?Type diclofenac sodium 1 % topical gel 2 gm topical QID PRN Pain 06/09/19 11/25/24 History (Voltaren) pravastatin 40 mg tablet 20 mg PO DAILY 06/09/19 12/02/24 History rivaroxaban 20 mg tablet (Xarelto) 20 mg PO DAILY 06/09/19 12/02/24 History aspirin 81 mg capsule 81 mg PO EVERY OTHER DAY 07/31/23 12/02/24 History fluticasone propionate 50 2 spray intranasal DAILY PRN 07/08/24 12/02/24 Rx mcg/actuation nasal ALLERGIES #16 grams spray,suspension famotidine 20 mg tablet 20 mg PO BID #60 tabs 09/09/24 11/25/24 Rx lorazepam 0.5 mg tablet (Ativan) 0.5 mg PO .qhs PRN anxiety #90 tabs 10/13/24 12/02/24 Rx levothyroxine 50 mcg tablet See Rx Instructions .Route 11/23/24 12/02/24 Rx .COMPLEX #90 tabs allopurinol 100 mg tablet 200 mg (2 x 100 mg) PO DAILY #180 11/24/24 12/02/24 Rx tabs finasteride 5 mg tablet 5 mg PO DAILY #90 tabs 11/24/24 12/02/24 Rx tamsulosin 0.4 mg capsule (Flomax) 0.4 mg PO DAILY #90 caps 11/24/24 12/02/24 Rx Allergies Allergy/AdvReac Type Severity Reaction Status Date / Time No Known Allergies Allergy Verified 11/25/24 14:42 Vital Signs Vital Signs - 24 hr 12/02/24 10:31 12/02/24 12:23 12/02/24 14:01 Temperature 98.1 F Pulse Rate 89 78 78 Respiratory Rate 20 20 14 Blood Pressure 129/71 110/59 L 124/76 Pulse Oximetry 100 98 98 Oxygen Delivery Room Air Exam 2 Const: General: comfortable and no acute distress Nutritional Appearance: a verage body habitus Orientation/consciousness: patient oriented x3 HENMT: Head: normocephalic and atraumatic Ears: hearing grossly normal bilaterally Mouth: Yes moist mucous membranes Eyes: General: appearance normal, both eyes and all related structures P upils: Equal, round and reactive pupils present Neck: Neck: normal visual inspection and full ROM Resp: Effort & Inspection: no respiratory distress Auscultation: clear to auscultation bilaterally Cardio: Rate: regular rate Rhythm: regular rhythm Peripheral pulses: P eripheral pulses 2+ throughout GI: Inspection: non-distended and no scars GI Palp: Yes Soft to palpation, Yes Tenderness to palpation present (GI) (very mild RLQ tenderness), No Guarding due to palpation present (GI), Yes No hepatosplenomegaly present, Yes Hernia present umbilical < 3 cm and No Rebound tenderness present Auscultation: n ormal bowel sounds Skin: General skin exam: normal color Neuro: General: moves all extremities and no focal motor deficits Speech: n ormal speech Motor exam (neuro): 5/5 motor strength present throughout Extrem: General: normal to inspection and no edema Psych: Mental Status: mental status grossly normal Attitude: cooperative Insight: Good insight present (Psych) Judgement: Good judgement present (Psych) Results Labs 12/02/24 11:19 12/02/24 11:19 Labs: Abnormal lab results 12/02/24 12/02/24 Range/Units 11:02 11:19 WBC 12.3 H (4.5-10.0) K/mm3 RBC 3.48 L (4.6-6.20) M/mm3 Hgb 11.1 L (14.0-18.0) g/dL Hct 33.3 L (42.0-52.0) % Neut % (Auto) 85.8 H (45.5-73.1) % Lymph % (Auto) 4.8 L (18.3-44.2) % Lymph # (Auto) 0.59 L (0.9-3.2) K/mm3 [place] # (Auto) 1.0 H (0.1-0.6) K/mm3 Abs Immat Gran (auto) 0.05 H (0.00-0.031) K/mm3 Absolute Neuts (auto) 10.6 H (1.3-6.7) K/mm3 PT 28.5 H (11.1-14.7) Seconds APTT 48.3 H (22.3-36.8) Seconds Sodium 128 L (137-145) mmol/L Chloride 96 L (98-107) mmol/L Calcium 8.0 L (8.4-10.2) mg/dL Total Protein 6.0 L (6.3-8.2) g/dL Albumin 3.2 L (3.5-5.1) g/dL Ur Blood (Man) 2+ H (Negative) Urine RBC 21-50 H (0-2) /hpf Diabetes panel 12/02/24 Range/Units 11:19 Sodium 128 L (137-145) mmol/L Potassium 4.6 (3.4-5.0) mmol/L Chloride 96 L (98-107) mmol/L Carbon Dioxide 25 (22-30) mmol/L BUN 16 (9-20) mg/dL Creatinine 0.88 (0.7-1.3) mg/dL Glucose 94 (65-110) mg/dL Calcium 8.0 L (8.4-10.2) mg/dL AST 45 (17-59) U/L ALT 33 (6-50) U/L Alkaline Phosphatase 104 (38-126) U/L Total Protein 6.0 L (6.3-8.2) g/dL Albumin 3.2 L (3.5-5.1) g/dL Calcium panel 12/02/24 Range/Units 11:19 Calcium 8.0 L (8.4-10.2) mg/dL Albumin 3.2 L (3.5-5.1) g/dL Pituitary panel 12/02/24 Range/Units 11:19 Sodium 128 L (137-145) mmol/L Potassium 4.6 (3.4-5.0) mmol/L Chloride 96 L (98-107) mmol/L Carbon Dioxide 25 (22-30) mmol/L BUN 16 (9-20) mg/dL Creatinine 0.88 (0.7-1.3) mg/dL Glucose 94 (65-110) mg/dL Calcium 8.0 L (8.4-10.2) mg/dL Adrenal panel 12/02/24 Range/Units 11:19 Sodium 128 L (137-145) mmol/L Potassium 4.6 (3.4-5.0) mmol/L Chloride 96 L (98-107) mmol/L Carbon Dioxide 25 (22-30) mmol/L BUN 16 (9-20) mg/dL Creatinine 0.88 (0.7-1.3) mg/dL Glucose 94 (65-110) mg/dL Calcium 8.0 L (8.4-10.2) mg/dL Total Bilirubin 0.9 (0.2-1.3) mg/dL AST 45 (17-59) U/L ALT 33 (6-50) U/L Alkaline Phosphatase 104 (38-126) U/L Total Protein 6.0 L (6.3-8.2) g/dL Albumin 3.2 L (3.5-5.1) g/dL All other labs normal. Imaging Additional studies: EXAMINATION: CT abdomen pelvis w con DATE: 12/02/2024 09:37 INDICATION: Abdominal distention TECHNIQUE: Computed tomography (CT) of the abdomen and pelvis was performed with 100 mL Omnipaque-350 intravenous contrast. Automated exposure control and iterative reconstruction technique were employed. The dose-length product was 496.22 mGy-cm. COMPARISON: 09/24/2023 FINDINGS: There is interval increase in the interstitial pattern in the bilateral lower lung zones which could remains relatively stable between 2019 and 2023. In addition there are new small bilateral pleural effusions and new regions of groundglass opacity in the bilateral lower lungs. This could be due to progression of nonspecific interstitial pneumonia (NSIP) pattern chronic interstitial lung disease or more likely acute mild pulmonary edema superimposed over the NSIP pattern chronic interstitial lung disease. Heart size is normal. Aortic valve and mitral annular calcification. No pericardial effusion. Dual- lead cardiac pacemaker with lead tips at the right atrial appendage and apex of the right ventricle. Small sliding-type hiatal hernia. Liver, gallbladder, spleen, pancreas, bilateral adrenal glands and kidneys are normal. No bowel obstruction. There is a 4.4 x 4.4 x 3.1 cm gas and fluid collection with some nonuniform peripheral enhancement situated within the mesentery of the central abdomen consistent with a likely viscus perforation and early organizing abscess. There is wall thickening of portion of the adjacent sigmoid colon and distal ileum. There are scattered diverticula along the colon including the sigmoid colon and could and could not exclude that this represents sequela of perforated diverticulitis. There does however appear to be inflammatory stranding extending between the abscess and the tip the cecum along what appears to be the enhancing appendix and would favor perforated appendicitis as etiology. There is additional small amount of non-organized ascites in the deep pelvis. Bladder is normal. Prostatomegaly. Mild lumbar dextroscoliosis with severe lumbar and moderate thoracic spondylosis. IMPRESSION: 1. Perforated appendicitis with 4.4 x 4.4 x 3.1 cm organizing abscess in the central abdomen at the tip of the inflamed appendix. Differential would include less likely perforated sigmoid diverticulitis. Dr. Fuentes discussed these findings with Dr. Gordon at 9:55 AM. 2. Mild pulmonary edema and small bilateral pleural effusions in the visualized lower lungs superimposed over NSIP pattern chronic interstitial lung disease. 3. Small amount of nonloculated ascites in the deep pelvis.
[2024-12-02 15:23] VITALS: BMI 21.8
[2024-12-02 15:28] VITALS: BP 130/76; PULSE 81; RESP 18; TEMP 36.3; O2SAT 100
--- NOTE | 2024-12-02 15:34 | ADMGEN ---
This patient, Marcial Santos, was admitted to [facility] Surg Room 306-02. Patient/family oriented to hospital policies and general routines including ID bracelet, bed and alarms, visiting hours, pain management, procedures, bathroom and other care routines, personal items, smoking policy, room service/diet, and visiting hours. Information on how to activate the Rapid Response Team has been discussed. Patient/Family are encouraged to report perceived risks to care and to ask questions if they do not understand what they are told or what they should do.
--- NOTE | 2024-12-02 20:13 | P.HP_ITS ---
H&P: HPI History of Present Illness Date/Time: 12/02/24 20:13 Chief Complaint: Abnormal Imaging Narrative: 89 y/o M with PMH of pulmonary fibrosis, CVA, carotid stenosis, anemia, heart failure, hiatal hernia, GERD, and basal cell carcinoma s/p Mohs procedure presents here with abnormal outpatient imaging. The patient presents here from a local diner after he was called with abnormal results from his CT of the abdomen pelvis that was performed this morning on 12/02/2024. CT showed a perforated appendix with a 4.4 by 4 x 4 x 3.1 cm organized abscess. The patient reports the imaging was performed because he has been experiencing periumbilical/lower abdominal pain for the past month, started around 16. It was associated with decreased appetite. Denied accompanying nausea, vomiting, diarrhea or constipation. Today he is reporting some mild tenderness with palpation in his abdomen. Denies fever, chills, body aches, diarrhea or constipation. He reports no previous abdominal surgeries. Has a hx of colitis and diverticulosis/diverticulitis, no further abdominal history. Initial VS at presentation: 98.1? F, HR 89, R 20, 129/71, and 100% on RA. ED workup showed: WBC 12.3, hemoglobin 11.1, INR 2.6, sodium 128, creatinine 0.88 and GFR >60, calcium 8.0/albumin 3.2, UA showed 2+ blood and 21-[address] of the abdomen/pelvis showed a perforated appendicitis with a 4.4 x 4.4 x 3.1 cm organized abscess in central abdomen at the tip of the inflamed appendix, mild pulmonary edema small bilateral pleural effusions the visualized lower lungs superimposed over NSIP pattern chronic interstitial lung disease, small amount of non loculated ascites in the pelvis. Review of Systems Review of Systems: All systems reviewed & are unremarkable except as noted in HPI and below [facility] Past Medical History Medical History (Updated 12/02/24 @ 21:07 by Myra Pina APRN) Pacemaker SSS (sick sinus syndrome) Pulmonary fibrosis, unspecified CVA (cerebral vascular accident) Carotid stenosis, right Carotid duplex in 2023 - showed 50-69% stenosis right ICA, <50% in left ICA Anemia Elevated fecal calprotectin Heart failure Peripheral edema Hiatal hernia GERD with esophagitis BCC (basal cell carcinoma of skin) Surgical History Surgical History History of colonoscopy Last in November 2023 d/t previous episode of colitis, with findings of diverticulosis, polyps, and internal hemorrhoids History of pacemaker History of tonsillectomy History of Mohs micrographic surgery for skin cancer Family History Family History Mother Hypertension Cerebrovascular accident Social History Social History Social History: Smoking status: Never smoker Second hand tobacco smoke exposure: No Smoking end date: 08/05/1965 Alcohol intake: current Drinks per week: 1 Alcohol use details: SHOT A WEEK Substance use: never Substance use type: does not use Do You Feel Safe in your Home?: Yes Lack of Transportation: No Lack of Food: Never True Current Housing: I Have Housing Concerned About Future Housing: No Difficulty Paying Gas/Electric Bills: No Difficulty Paying for Meds: No Currently Unemployed: No Education: High School Diploma/GED Difficulty w/ Childcare or Family Care: No Living arrangements: with family Occupation/Education: retired Gender identity (if verbalized by the patient): Male Sexual Orientation (if Verbalized by the Patient): Straight or Heterosexual Spiritual care concerns: No Meds Home Medications and Allergies Home Medications ?Medication ?Instructions ?Recorded ?Confirmed ?Type diclofenac sodium 1 % topical gel 2 gm topical QID PRN Pain 06/09/19 12/02/24 History (Voltaren) pravastatin 40 mg tablet 20 mg PO QHS 06/09/19 12/02/24 History rivaroxaban 20 mg tablet (Xarelto) 20 mg PO QHS 06/09/19 12/02/24 History aspirin 81 mg capsule 81 mg PO EVERY OTHER DAY 07/31/23 12/02/24 History fluticasone propionate 50 2 spray intranasal DAILY PRN 07/08/24 12/02/24 Rx mcg/actuation nasal ALLERGIES #16 grams spray,suspension famotidine 20 mg tablet 20 mg PO BID #60 tabs 09/09/24 12/02/24 Rx lorazepam 0.5 mg tablet (Ativan) 0.5 mg PO .qhs PRN anxiety #90 tabs 10/13/24 12/02/24 Rx levothyroxine 50 mcg tablet See Rx Instructions .Route 11/23/24 12/02/24 Rx .COMPLEX #90 tabs allopurinol 100 mg tablet 200 mg (2 x 100 mg) PO DAILY #180 11/24/24 12/02/24 Rx tabs calcium carbonate 750 1 tablet PO HS 12/02/24 12/02/24 History mg-simethicone 250 mg chewable tablet (Phazyme Gas and Acid) finasteride 5 mg tablet 5 mg PO QHS 12/02/24 12/02/24 History tamsulosin 0.4 mg capsule (Flomax) 0.4 mg PO QHS 12/02/24 12/02/24 History Allergies Allergy/AdvReac Type Severity Reaction Status Date / Time No Known Allergies Allergy Verified 11/25/24 14:42 Vital Signs Vital Signs - 24 hr 12/02/24 10:31 12/02/24 12:23 12/02/24 14:01 Temperature 98.1 F Pulse Rate 89 78 78 Respiratory Rate 20 20 14 Blood Pressure 129/71 110/59 L 124/76 Pulse Oximetry 100 98 98 Oxygen Delivery Room Air 12/02/24 15:28 12/02/24 16:00 Temperature 97.3 F L Pulse Rate 81 Respiratory Rate 18 Blood Pressure 130/76 Pulse Oximetry 100 Oxygen Delivery Room Air Exam Narrative: no tendy, been good. Const: General: comfortable and no acute distress Other: , male, elderly, nontoxic appearance HENMT: Face/Nose/Sinus: Normal nares present Mouth: Yes moist mucous membranes Eyes: General: appearance normal, both eyes and all related structures Sclera: sclerae normal Pupils: Equal, round and reactive pupils present EOM: EOMs intact bilaterally Resp: Effort & Inspection: normal respiratory effort Auscultation: clear to auscultation bilaterally Cardio: Rate: regular rate Rhythm: regular rhythm Other: S1-S2 present without murmur, rub, ectopy GI: Other: Abdomen soft, nondistended, nontender. Normoactive bowel sounds in all quadrants. Skin: General skin exam: normal color and no rashes or lesions noted Wounds: no wounds Neuro: Speech: normal speech Motor exam (neuro): 5/5 motor strength present throughout Sensory Exam: normal sensation Other: A&O x4 Extrem: General: normal to inspection Psych: Mental Status: mental status grossly normal Affect: normal affect Other: Good insight and judgment, very pleasant H&P: Results Labs Labs: Short CBC 12/02/24 Range/Units 11:19 WBC 12.3 H (4.5-10.0) K/mm3 Hgb 11.1 L (14.0-18.0) g/dL Hct 33.3 L (42.0-52.0) % Plt Count 325 (150-375) k/mm3 BMP 12/02/24 11:19 Sodium 128 L Potassium 4.6 Chloride 96 L Carbon Dioxide 25 BUN 16 Creatinine 0.88 Glucose 94 Calcium 8.0 L Liver Function 12/02/24 Range/Units 11:19 Total Bilirubin 0.9 (0.2-1.3) mg/dL AST 45 (17-59) U/L ALT 33 (6-50) U/L Alkaline Phosphatase 104 (38-126) U/L Albumin 3.2 L (3.5-5.1) g/dL Urine 12/02/24 Range/Units 11:02 Urine Color Yellow (Yellow) Urine Appearance Clear (Clear) Urine pH 7.5 (5.0-9.0) Ur Specific [place] 1.015 (1.001-1.035) Urine Protein Negative (Negative) mg/dL Urine Glucose (UA) Negative (Negative) mg/dL Assessment and Plan Assessment and plan (1) Acute appendicitis with perforation and peritoneal abscess: Code(s): K35.33 - Acute appendicitis with perforation, localized peritonitis, and gangrene, with abscess Status: Acute Assessment and Plan: CT abdomen/pelvis: 1. Perforated appendicitis with 4.4 x 4.4 x 3.1 cm organizing abscess in the central abdomen at the tip of the inflamed appendix. Differential would include less likely perforated sigmoid diverticulitis. Dr. Fuentes discussed these findings with Dr. Gordon at 9:55 AM. 2. Mild pulmonary edema and small bilateral pleural effusions in the visualized lower lungs superimposed over NSIP pattern chronic interstitial lung disease. 3. Small amount of nonloculated ascites in the deep pelvis. WBC 12.3, however did not meet SIRS criteria. General surgery consult W[facility]rir[facility]/[place]. Provided the following recs: No peritoneal signs on exam, mild tenderness to palpation mid abdomen. Reviewed imaging. Recommend bowel rest and IV antibiotics. May need to consider percutaneous drainage of the abscess, plan to review imaging with Radiology to determine if drainage is possible Started on Zosyn on 12/02 Analgesics and antipyretics p.r.n. NPO, IV fluids at 125 mL/hr, hypoglycemia protocol with Q6H glucose checks until no longer NPO Hold aspirin and Xarelto. SCDs. Monitor labs. (2) Hyponatremia: Code(s): E87.1 - Hypo-osmolality and hyponatremia Status: Acute Assessment and Plan: Na 128 recent decline in appetite, suspect reduction due to reduce dietary intake. intermittently low since 2019. NS 125 mL/hour monitor (3) Paroxysmal A-fib: Code(s): I48.0 - Paroxysmal atrial fibrillation Status: Chronic Assessment and Plan: Hold Xarelto, add SCDs in case of need for procedure. (4) Anemia: Qualifiers: Anemia type: unspecified type Qualified Code(s): D64.9 - Anemia, unspecified Code(s): D64.9 - Anemia, unspecified Status: Chronic Assessment and Plan: Hemoglobin 11.1, at baseline Monitor. Plan Diet: NPO GI Prophylaxis: Famotidine p.o. DVT Prophylaxis: Will Xarelto, SCDs IV fluids: NS 125 mL/hr Lines/Tubes: Peripheral IV Code Status: Full code Quality VTE Prophylaxis VTE prophylaxis: mechanical ordered If No VTE Prophylaxis Answer both mechanical and pharmacologic: Reason no pharmacologic proph: medical contraindication Hospitalist MIPS Advance Care Plan I have confirmed that the patient's Advanced Care Plan is present, code status is documented, or surrogate decision maker is listed in patient medical record.: Yes Medication Reconciliation I have utilized all available resources to obtain, update and review the patients current medications (includes all prescriptions, OTC, herbals, cannabis, and nutritional supplements).: Yes
[2024-12-02] MEDS: FINASTERIDE 5 MG TABLET PO (21:09)
[2024-12-02] MEDS: FAMOTIDINE 20 MG TABLET PO (21:09)
[2024-12-02] MEDS: TAMSULOSIN HCL 0.4 MG CAPSULE PO (21:09)
[2024-12-02] MEDS: LORazepam (*CRX) 0.5 MG TABLET PO (21:29)
[2024-12-02 22:00] VITALS: BP 113/88; PULSE 79; RESP 18; TEMP 36; O2SAT 98
[2024-12-03] MEDS: LEVOTHYROXINE SODIUM 50 MCG TABLET PO (05:58)
[2024-12-03] MEDS: PIPERACILLN/TAZ 3.375GM/NS50ML 3.375 GM/50 ML BAG IVPB ×4 (05:58→23:22)
[2024-12-03 06:00] VITALS: BP 116/84; PULSE 76; RESP 18; TEMP 36.1; O2SAT 99
[2024-12-03 06:24] LABS: Basophils Percent Auto 0.3 % (0.2-1.2); Eosinophils Absolute Auto 0.1 K/mm3 (0-0.3); Eosinophils Percent Auto 0.4 % (0-4.4); Hematocrit 31.2 % (42.0-52.0); Hemoglobin 10.1 g/dL (14.0-18.0); Immature Granulocyte Absolute 0.06 K/mm3 (0.00-0.031); Immature Granulocyte Percent A 0.5 % (0-0.5); Lymphocytes Absolute Auto 0.67 K/mm3 (0.9-3.2); Lymphocytes Percent Auto 5.2 % (18.3-44.2); Mean Corpuscular HGB Conc 32.4 g/dl (32-36); Mean Corpuscular Hemoglobin 31.3 pg (26-34); Mean Corpuscular Volume 96.6 fl (80-100); Mean Platelet Volume 10.4 fl (7.4-10.4); Monocytes Percent Auto 7.7 % (2.6-8.5); Neutrophils Absolute Auto 11.2 K/mm3 (1.3-6.7); Neutrophils Percent Auto 85.9 % (45.5-73.1); Platelet Count Result 309 k/mm3 (150-375); Red Blood Count 3.23 M/mm3 (4.6-6.20); Red Cell Distribution Width 13.1 % (11.5-14.5)
[2024-12-03 06:32] LABS: Anion Gap 9 mmol/L (4-12); Blood Urea Nitrogen 14 mg/dL (9-20); Calcium 7.7 mg/dL (8.4-10.2); Carbon Dioxide 22 mmol/L (22-30); Chloride 99 mmol/L (98-107); Estimated CRCL calculation 46 ml/min; Estimated Glomerular Filt Rate > 60; Glucose 71 mg/dL (65-110); Potassium 4.3 mmol/L (3.4-5.0); Sodium 130 mmol/L (137-145)
[2024-12-03 06:46] LABS: INR 1.9; Prothrombin Time 21.9 Seconds (11.1-14.7)
[2024-12-03 06:47] LABS: Partial Thromboplastin Time 44.1 Seconds (22.3-36.8)
--- NOTE | 2024-12-03 07:52 | P.PNIM_ITS ---
Progress Note: A&P Assessment and Plan (1) Acute appendicitis with perforation and peritoneal abscess: Code(s): K35.33 - Acute appendicitis with perforation, localized peritonitis, and gangrene, with abscess Status: Acute Assessment and Plan: CT abdomen/pelvis: 1. Perforated appendicitis with 4.4 x 4.4 x 3.1 cm organizing abscess in the central abdomen at the tip of the inflamed appendix. Differential would include less likely perforated sigmoid diverticulitis. Dr. Fuentes discussed these findings with Dr. Gordon at 9:55 AM. 2. Mild pulmonary edema and small bilateral pleural effusions in the visual ized lower lungs superimposed over NSIP pattern chronic interstitial lung disease. 3. Small amount of nonloculated ascites in the deep pelvis. - WBC 12.3 on admission, however did not meet SIRS criteria. - Started on Zosyn on 12/02 - Analgesics and antipyretics p.r.n. - Clear liquid diet - IV fluids at 125 mL/hr, hypoglycemia protocol with Q6H glucose checks until no longer NPO - Hold aspirin and Xarelto. SCDs. - Monitor vital signs, I and O's, check stool output, neuro status and patient is a fall risk - Monitor serum electrolytes and CBC - Monitor lactic acid - General surgery consult No peritoneal signs on exam, mild tenderness to palpation mid abdomen. Reviewed imaging. Recommend bowel rest and IV antibiotics. Plan for CT guided abscess drainage on 12/04 with IR (2) Hyponatremia: Code(s): E87.1 - Hypo-osmolality and hyponatremia Status: Acute Assessment and Plan: Recent decline in appetite, suspect reduction due to reduce dietary intake. intermittently low since 2019. Na 128 on admission, slightly improved to 130 with fluids NS 125 mL/hour monitor (3) Paroxysmal A-fib: Code(s): I48.0 - Paroxysmal atrial fibrillation Status: Chronic Assessment and Plan: Rate controlled not on beta ender Hold Xarelto in case of procedure, SCD for DVT ppx Monitor (4) Anemia: Qualifiers: Anemia type: unspecified type Qualified Code(s): D64.9 - Anemia, unspecified Code(s): D64.9 - Anemia, unspecified Status: Chronic Assessment and Plan: H/H 11.1/33.3 on admission, appears at baseline B12 and folate WNL Iron panel pending No signs of active bleeding Monitor. Plan Diet: NPO GI Prophylaxis: Famotidine p.o. DVT Prophylaxis: Alyssa Rodriguez IV fluids: NS 125 mL/hr Lines/Tubes: Peripheral IV Code Status: Full code Time Spent With Patient Time with patient: 25 - 35 minutes Subjective Date/time seen: 12/03/24 07:52 Interval history: 89 year old male with past medical history of pulmonary fibrosis, CVA, carotid stenosis, anemia, heart failure, hiatal hernia, GERD, and basal cell carcinoma s/p Mohs procedure presents to the hospital with abnormal outpatient imaging which showed a perforated appendix with a 4.4 by 4 x 4 x 3.1 cm organized abscess. Patient is pleasant lying comfortably in bed with daughter at bedside. He notes slight discomfort to the right lower quadrant this primarily with rolling and resolved quickly. He has no other complaints denying chest pain, palpitations, and nausea/vomiting. Review of Systems Review of Systems: All systems reviewed & are unremarkable except as noted in HPI and below Exam Narrative: AF HR 74 RR 18 SpO2 99 BP 118/64 General: male in no acute respiratory distress who is nontoxic appearing, lying semi recumbent in bed. HEENT: Normocephalic. Atraumatic. Extraocular movement intact. Sclera clear and anicteric. No facial asymmetry. Chest: Lungs are clear to auscultation bilaterally. No wheezes or crackles. CV: Heart was regular rate and rhythm. Abd: Abdomen was soft. Nontender. Nondistended. Positive bowel sounds. Ext: No clubbing, cyanosis, or edema. DP pulses bilaterally. Neuro: Patient is alert. Speech is clear. Objective Data Vital Signs Vital Signs: Vital Signs - 24 hr 12/02/24 10:31 12/02/24 12:23 12/02/24 14:01 Temperature 98.1 F Pulse Rate 89 78 78 Respiratory Rate 20 20 14 Blood Pressure 129/71 110/59 L 124/76 Pulse Oximetry 100 98 98 Oxygen Delivery Room Air 12/02/24 15:28 12/02/24 16:00 12/02/24 22:00 Temperature 97.3 F L 96.8 F L Pulse Rate 81 79 Respiratory Rate 18 18 Blood Pressure 130/76 113/88 Pulse Oximetry 100 98 Oxygen Delivery Room Air 12/03/24 06:00 Temperature 97 F L Pulse Rate 76 Respiratory Rate 18 Blood Pressure 116/84 Pulse Oximetry 99 Oxygen Delivery Intake/Output Intake/Output: Intake & Output 11/30/24 12/01/24 12/02/24 12/03/24 23:59 23:59 23:59 23:59 Intake Total 1100 50 Output Total 200 Balance 1100 -150 Meds/Results Medications: Active Medications Generic Name Dose Route Start Last Admin Trade Name Freq PRN Reason Stop Dose Admin Acetaminophen 1,000 mg 12/02/24 15:43 Acetaminophen 500 Mg Tablet PO Q6H PRN Mild Pain (1-3) or Fever Allopurinol 200 mg 12/03/24 09:00 Allopurinol 100 Mg Tablet PO DAILY JAYJAY Dextrose 12.5 gm 12/02/24 20:24 Dextrose 50% 25 Gm/50 Ml Syringe IV PUSH PRN PRN Hypoglycemia Protocol Famotidine 20 mg 12/02/24 20:40 12/02/24 21:09 Famotidine 20 Mg Tablet PO 20 mg BID JAYJAY Administration Finasteride 5 mg 12/02/24 21:00 12/02/24 21:09 Finasteride 5 Mg Tablet PO 5 mg QHS JAYJAY Administration Fluticasone Propionate 2 spray 12/02/24 20:25 Fluticasone Propionate 0.05% Na Spr 16 Gm Btl (*Bkc) NASAL DAILY PRN ALLERGIES Glucagon 1 mg 12/02/24 20:24 Glucagon For Inj 1 Mg Vial IM PRN PRN Hypoglycemia Protocol Glucose 15 gm 12/02/24 20:24 Glucose Oral Gel 15 Gm Of Glucse In 37.5 Gm Tube PO PRN PRN Hypoglycemia Protocol Piperacillin/Tazobactam/Dextrose 3.375 gm in 50 mls @ 100 mls/hr 12/02/24 18:00 12/03/24 05:58 Zosyn 3.375 Gm/Ns 50 Ml IVPB 100 mls/hr Q6HR JAYJAY Administration Sodium Chloride 1,000 mls @ 125 mls/hr 12/02/24 13:15 12/02/24 23:33 Normal Saline Iv IV CONT 125 mls/hr .Q8H JAYJAY Administration Dextrose 1,000 mls @ 100 mls/hr 12/02/24 20:24 Dextrose 5% 1,000 Ml IVPB PRN PRN Hypoglycemia Protocol Levothyroxine Sodium 50 mcg 12/03/24 06:30 12/03/24 05:58 Levothyroxine Sodium 50 Mcg Tablet PO 50 mcg DAILY@0630 JAYJAY Administration Lorazepam 0.5 mg 12/02/24 21:09 12/02/24 21:29 Lorazepam (*Crx) 0.5 Mg Tablet PO 0.5 mg HS PRN Administration anxiety Morphine Sulfate 2 mg 12/02/24 13:15 Morphine Sulfate (*Crx) 2 Mg/Ml Inj IV PUSH Q2H PRN Pain Rated 7-10 Ondansetron HCl 4 mg 12/02/24 13:15 Ondansetron Inj 4 Mg/2 Ml Vial IV PUSH Q4H PRN Nausea Tamsulosin HCl 0.4 mg 12/02/24 21:00 12/02/24 21:09 Tamsulosin Hcl 0.4 Mg Capsule PO 0.4 mg QHS JAYJAY Administration Labs Labs: Laboratory Results - last 24 hr 12/02/24 12/02/24 12/03/24 11:02 11:19 05:57 WBC 12.3 H 13.0 H RBC 3.48 L 3.23 L Hgb 11.1 L 10.1 L Hct 33.3 L 31.2 L MCV 95.7 96.6 MCH 31.9 31.3 MCHC 33.3 32.4 RDW 13.1 13.1 Plt Count 325 309 MPV 10.3 10.4 Immature Gran % (Auto) 0.4 0.5 Neut % (Auto) 85.8 H 85.9 H Lymph % (Auto) 4.8 L 5.2 L [place] % (Auto) 8.4 7.7 Eos % (Auto) 0.4 0.4 Baso % (Auto) 0.2 0.3 Lymph # (Auto) 0.59 L 0.67 L [place] # (Auto) 1.0 H 1.0 H Eos # (Auto) 0.1 0.1 Baso # (Auto) 0.0 0.0 Abs Immat Gran (auto) 0.05 H 0.06 H Absolute Neuts (auto) 10.6 H 11.2 H Absolute Nucleated RBC 0.000 0.000 Nucleated RBC % 0.0 0.0 PT 28.5 H 21.9 H D INR 2.6 1.9 APTT 48.3 H 44.1 H Sodium 128 L 130 L Potassium 4.6 4.3 Chloride 96 L 99 Carbon Dioxide 25 22 Anion Gap 7 9 BUN 16 14 Creatinine 0.88 0.93 Estim Creat Clear Calc 49 46 Estimated GFR > 60 > 60 Glucose 94 71 Calcium 8.0 L 7.7 L Total Bilirubin 0.9 AST 45 ALT 33 Alkaline Phosphatase 104 Total Protein 6.0 L Albumin 3.2 L Urine Color Yellow Urine Appearance Clear Urine pH 7.5 Ur Specific [place] 1.015 Urine Protein Negative Urine Glucose (UA) Negative Urine Ketones Negative Ur Blood (Man) 2+ H Urine Nitrate Negative Urine Bilirubin Negative Urine Urobilinogen 0.2 Leukocyte Esterase Rfl Negative Urine RBC 21-50 H Urine WBC 0-5 Ur Squamous Epith Cells None seen Urine Bacteria None seen Urine Casts 0-2 Quality VTE Prophylaxis VTE prophylaxis: mechanical ordered
[2024-12-03 08:00] VITALS: O2SAT 99
[2024-12-03] MEDS: SODIUM CHLORIDE 0.9% IV 1,000 ML 125 ML IV CONT (08:04)
[2024-12-03 11:08] LABS: Folic Acid > 20.0 ng/mL (2.76->20)
[2024-12-03 12:29] LABS: Glucose Point of Care 70 mg/dl (65-105)
--- NOTE | 2024-12-03 12:41 | PM.PNGS ---
Progress Note: A&P Assessment and Plan (1) Acute appendicitis with perforation and peritoneal abscess: Code(s): K35.33 - Acute appendicitis with perforation, localized peritonitis, and gangrene, with abscess Status: Acute Assessment and Plan: White blood count about the same today. Continue IV Zosyn. Will plan for possible CT-guided abscess drainage tomorrow. Xarelto has been held since 12/01. (2) Hyponatremia: Code(s): E87.1 - Hypo-osmolality and hyponatremia Status: Acute (3) Paroxysmal A-fib: Code(s): I48.0 - Paroxysmal atrial fibrillation Status: Chronic Assessment and Plan: Anticoagulation on hold (4) Anemia: Qualifiers: Anemia type: unspecified type Qualified Code(s): D64.9 - Anemia, unspecified Code(s): D64.9 - Anemia, unspecified Status: Chronic Subjective Subjective Date/Time Seen: 12/03/24 12:41 Interval history: Patient still with minimal abdominal pain. No fevers. Exam GI: Inspection: non-distended GI Palp: Yes Soft to palpation, No Tenderness to palpation present (GI), No Guarding due to palpation present (GI) and No Rebound tenderness present Auscultation: normal bowel sounds Objective Data Vital Signs Vital Signs: Vital Signs - 24 hr 12/02/24 14:01 12/02/24 15:28 12/02/24 16:00 Temperature 97.3 F L Pulse Rate 78 81 Respiratory Rate 14 18 Blood Pressure 124/76 130/76 Pulse Oximetry 98 100 Oxygen Delivery Room Air 12/02/24 22:00 12/03/24 06:00 12/03/24 08:00 Temperature 96.8 F L 97 F L Pulse Rate 79 76 Respiratory Rate 18 18 Blood Pressure 113/88 116/84 Pulse Oximetry 98 99 99 Oxygen Delivery Room Air Intake/Output Intake/Output: Intake & Output 11/30/24 12/01/24 12/02/24 12/03/24 23:59 23:59 23:59 23:59 Intake Total 1100 1100 Output Total 200 Balance 1100 900 Meds/Results Medications: Active Medications Generic Name Dose Route Start Last Admin Trade Name Freq PRN Reason Stop Dose Admin Acetaminophen 1,000 mg 12/02/24 15:43 Acetaminophen 500 Mg Tablet PO Q6H PRN Mild Pain (1-3) or Fever Allopurinol 200 mg 12/03/24 09:00 Allopurinol 100 Mg Tablet PO DAILY JAYJAY Dextrose 12.5 gm 12/02/24 20:24 Dextrose 50% 25 Gm/50 Ml Syringe IV PUSH PRN PRN Hypoglycemia Protocol Famotidine 20 mg 12/02/24 20:40 12/02/24 21:09 Famotidine 20 Mg Tablet PO 20 mg BID JAYJAY Administration Finasteride 5 mg 12/02/24 21:00 12/02/24 21:09 Finasteride 5 Mg Tablet PO 5 mg QHS JAYJAY Administration Fluticasone Propionate 2 spray 12/02/24 20:25 Fluticasone Propionate 0.05% Na Spr 16 Gm Btl (*Bkc) NASAL DAILY PRN ALLERGIES Glucagon 1 mg 12/02/24 20:24 Glucagon For Inj 1 Mg Vial IM PRN PRN Hypoglycemia Protocol Glucose 15 gm 12/02/24 20:24 Glucose Oral Gel 15 Gm Of Glucse In 37.5 Gm Tube PO PRN PRN Hypoglycemia Protocol Piperacillin/Tazobactam/Dextrose 3.375 gm in 50 mls @ 100 mls/hr 12/02/24 18:00 12/03/24 11:52 Zosyn 3.375 Gm/Ns 50 Ml IVPB 100 mls/hr Q6HR JAYJAY Administration Sodium Chloride 1,000 mls @ 75 mls/hr 12/02/24 13:15 12/03/24 08:04 Normal Saline Iv IV CONT 125 mls/hr .[id number] JAYJAY Administration Dextrose 1,000 mls @ 100 mls/hr 12/02/24 20:24 Dextrose 5% 1,000 Ml IVPB PRN PRN Hypoglycemia Protocol Levothyroxine Sodium 50 mcg 12/03/24 06:30 12/03/24 05:58 Levothyroxine Sodium 50 Mcg Tablet PO 50 mcg DAILY@0630 JAYJAY Administration Lorazepam 0.5 mg 12/02/24 21:09 12/02/24 21:29 Lorazepam (*Crx) 0.5 Mg Tablet PO 0.5 mg HS PRN Administration anxiety Morphine Sulfate 2 mg 12/02/24 13:15 Morphine Sulfate (*Crx) 2 Mg/Ml Inj IV PUSH Q2H PRN Pain Rated 7-10 Ondansetron HCl 4 mg 12/02/24 13:15 Ondansetron Inj 4 Mg/2 Ml Vial IV PUSH Q4H PRN Nausea Tamsulosin HCl 0.4 mg 12/02/24 21:00 12/02/24 21:09 Tamsulosin Hcl 0.4 Mg Capsule PO 0.4 mg QHS JAYJAY Administration Labs Labs: Laboratory Results - last 24 hr 12/03/24 12/03/24 12/03/24 05:52 05:57 12:05 WBC 13.0 H RBC 3.23 L Hgb 10.1 L Hct 31.2 L MCV 96.6 MCH 31.3 MCHC 32.4 RDW 13.1 Plt Count 309 MPV 10.4 Immature Gran % (Auto) 0.5 Neut % (Auto) 85.9 H Lymph % (Auto) 5.2 L [place] % (Auto) 7.7 Eos % (Auto) 0.4 Baso % (Auto) 0.3 Lymph # (Auto) 0.67 L [place] # (Auto) 1.0 H Eos # (Auto) 0.1 Baso # (Auto) 0.0 Abs Immat Gran (auto) 0.06 H Absolute Neuts (auto) 11.2 H Absolute Nucleated RBC 0.000 Nucleated RBC % 0.0 PT 21.9 H D INR 1.9 APTT 44.1 H Sodium 130 L Potassium 4.3 Chloride 99 Carbon Dioxide 22 Anion Gap 9 BUN 14 Creatinine 0.93 Estim Creat Clear Calc 46 Estimated GFR > 60 Glucose 71 POC Capillary Glucose 70 Calcium 7.7 L Vitamin B12 699.0 Folate > 20.0 H
[2024-12-03 12:56] VITALS: BP 113/62; PULSE 79; RESP 16; TEMP 36.8; O2SAT 99
[2024-12-03 14:00] VITALS: BP 118/64; PULSE 74; RESP 18; TEMP 36.9; O2SAT 99
[2024-12-03] MEDS: FAMOTIDINE 20 MG TABLET PO (14:13)
[2024-12-03] MEDS: allopurinoL 100 MG TABLET 200 MG PO (14:13)
[2024-12-03 18:16] LABS: Glucose Point of Care 95 mg/dl (65-105)
[2024-12-03] MEDS: FINASTERIDE 5 MG TABLET PO (20:22)
[2024-12-03] MEDS: TAMSULOSIN HCL 0.4 MG CAPSULE PO (20:22)
[2024-12-03] MEDS: LORazepam (*CRX) 0.5 MG TABLET PO (20:22)
[2024-12-03 20:45] VITALS: BP 131/78; PULSE 77; RESP 20; TEMP 36.4; O2SAT 99
[2024-12-03] MEDS: SODIUM CHLORIDE 0.9% IV 1,000 ML 75 ML IV CONT (21:08)
[2024-12-03 23:47] LABS: Iron 19 ug/dL (49-181)
[2024-12-03 23:56] LABS: Percent Iron Saturation 9 % (20-50)
[2024-12-04 00:33] LABS: Glucose Point of Care 110 mg/dl (65-105)
[2024-12-04 05:05] VITALS: BP 114/49; PULSE 75; RESP 16; TEMP 36.2; O2SAT 98
[2024-12-04] MEDS: LEVOTHYROXINE SODIUM 50 MCG TABLET PO (05:46)
[2024-12-04] MEDS: PIPERACILLN/TAZ 3.375GM/NS50ML 3.375 GM/50 ML BAG IVPB ×4 (05:53→23:48)
[2024-12-04 06:20] LABS: Hematocrit 30.7 % (42.0-52.0); Hemoglobin 10.2 g/dL (14.0-18.0); Mean Corpuscular HGB Conc 33.2 g/dl (32-36); Mean Corpuscular Hemoglobin 31.4 pg (26-34); Mean Corpuscular Volume 94.5 fl (80-100); Mean Platelet Volume 10.1 fl (7.4-10.4); Platelet Count Result 336 k/mm3 (150-375); Red Blood Count 3.25 M/mm3 (4.6-6.20); Red Cell Distribution Width 13.1 % (11.5-14.5); White Blood Count 11.2 K/mm3 (4.5-10.0)
[2024-12-04 06:33] LABS: Alanine Aminotransferase 38 U/L (6-50); Albumin Level 2.7 g/dL (3.5-5.1); Alkaline Phosphatase 91 U/L (38-126); Anion Gap 5 mmol/L (4-12); Aspartate Amino Transferase 48 U/L (17-59); Bilirubin,Total 0.8 mg/dL (0.2-1.3); Blood Urea Nitrogen 11 mg/dL (9-20); Calcium 7.7 mg/dL (8.4-10.2); Carbon Dioxide 24 mmol/L (22-30); Chloride 102 mmol/L (98-107); Estimated CRCL calculation 46 ml/min; Estimated Glomerular Filt Rate > 60; Glucose 93 mg/dL (65-110); Potassium 4.2 mmol/L (3.4-5.0); Sodium 131 mmol/L (137-145)
[2024-12-04 06:43] LABS: INR 1.6; Prothrombin Time 19.3 Seconds (11.1-14.7)
[2024-12-04 06:44] LABS: Partial Thromboplastin Time 39.6 Seconds (22.3-36.8)
--- NOTE | 2024-12-04 07:59 | P.PNIM_ITS ---
Progress Note: A&P Assessment and Plan (1) Acute appendicitis with perforation and peritoneal abscess: Code(s): K35.33 - Acute appendicitis with perforation, localized peritonitis, and gangrene, with abscess Status: Acute Assessment and Plan: CT abdomen/pelvis: 1. Perforated appendicitis with 4.4 x 4.4 x 3.1 cm organizing abscess in the central abdomen at the tip of the inflamed appendix. Differential would include less likely perforated sigmoid diverticulitis. Dr. Fuentes discussed these findings with Dr. Gordon at 9:55 AM. 2. Mild pulmonary edema and small bilateral pleural effusions in the visual ized lower lungs superimposed over NSIP pattern chronic interstitial lung disease. 3. Small amount of nonloculated ascites in the deep pelvis. - Started on Zosyn on 12/02 - Analgesics and antipyretics p.r.n. - Diet: Regular diet - IV fluids at 125 mL/hr, hypoglycemia protocol with Q6H glucose checks until no longer NPO - Hold aspirin and Xarelto. SCDs. - Monitor vital signs, I and O's, check stool output, neuro status and patient is a fall risk - Monitor serum electrolytes and CBC - Monitor lactic acid - General surgery consult Plan was for CT guided abscess drainage on 12/04 with IR however patient was unable to have this safely placed. Continue IV antibiotics. Home in next 1-2 days if no acute change. 10 days augmentin and flagyl at [place] with follow up in office in [address] (2) Hyponatremia: Code(s): E87.1 - Hypo-osmolality and hyponatremia Status: Acute Assessment and Plan: Recent decline in appetite, suspect reduction due to reduce dietary intake. intermittently low since 2019. Na 128 on admission, improved with fluids NS 125 mL/hour monitor (3) Paroxysmal A-fib: Code(s): I48.0 - Paroxysmal atrial fibrillation Status: Chronic Assessment and Plan: Rate controlled not on beta ender Hold Xarelto for procedure, SCD for DVT ppx Monitor (4) Anemia: Qualifiers: Anemia type: unspecified type Qualified Code(s): D64.9 - Anemia, unspecified Code(s): D64.9 - Anemia, unspecified Status: Chronic Assessment and Plan: H/H 11.1/33.3 on admission, appears at baseline B12 and folate WNL Iron panel: iron 19, TIBC 206, % sat 9. Started on supplementation. No signs of active bleeding Monitor. Time Spent With Patient Time with patient: 25 - 35 minutes Subjective Date/time seen: 12/04/24 07:59 Interval history: 89 year old male with past medical history of pulmonary fibrosis, CVA, carotid stenosis, anemia, heart failure, hiatal hernia, GERD, and basal cell carcinoma s/p Mohs procedure presents to the hospital with abnormal outpatient imaging which showed a perforated appendix with a 4.4 by 4 x 4 x 3.1 cm organized abscess. Patient is pleasant sitting up comfortably in bed. He has no complaints denying chest pain, shortness of breath, palpitations, nausea/vomiting and abdominal pain. Review of Systems Review of Systems: All systems reviewed & are unremarkable except as noted in HPI and below Exam Narrative: AF HR 75 RR 16 SPO2 98 BP 114/49 General: male in no acute respiratory distress who is nontoxic appearing, sitting up in bed HEENT: Normocephalic. Atraumatic. Extraocular movement intact. Sclera clear and anicteric. No facial asymmetry. Chest: Lungs are clear to auscultation bilaterally. No wheezes or crackles. CV: Heart was regular rate and rhythm. Abd: Abdomen was soft. Slight discomfort. Nondistended. Positive bowel sounds. Ext: No clubbing, cyanosis, or edema. DP pulses bilaterally. Neuro: Patient is alert. Speech is clear. Objective Data Vital Signs Vital Signs: Vital Signs - 24 hr 12/03/24 08:00 12/03/24 12:56 12/03/24 14:00 Temperature 98.2 F 98.5 F Pulse Rate 79 74 Respiratory Rate 16 18 Blood Pressure 113/62 118/64 Pulse Oximetry 99 99 99 Oxygen Delivery Room Air 12/03/24 20:00 12/03/24 20:45 12/04/24 05:05 Temperature 97.6 F 97.1 F L Pulse Rate 77 75 Respiratory Rate 20 16 Blood Pressure 131/78 114/49 L Pulse Oximetry 99 98 Oxygen Delivery Room Air Intake/Output Intake/Output: Intake & Output 12/01/24 12/02/24 12/03/24 12/04/24 23:59 23:59 23:59 23:59 Intake Total 1100 3640.0 350 Output Total 200 Balance 1100 3440.0 350 Meds/Results Medications: Active Medications Generic Name Dose Route Start Last Admin Trade Name Freq PRN Reason Stop Dose Admin Acetaminophen 1,000 mg 12/02/24 15:43 Acetaminophen 500 Mg Tablet PO Q6H PRN Mild Pain (1-3) or Fever Allopurinol 200 mg 12/03/24 09:00 12/03/24 14:13 Allopurinol 100 Mg Tablet PO 200 mg DAILY JAYJAY Administration Dextrose 12.5 gm 12/02/24 20:24 Dextrose 50% 25 Gm/50 Ml Syringe IV PUSH PRN PRN Hypoglycemia Protocol Famotidine 20 mg 12/02/24 20:40 12/03/24 17:21 Famotidine 20 Mg Tablet PO Not Given BID JAYJAY Finasteride 5 mg 12/02/24 21:00 12/03/24 20:22 Finasteride 5 Mg Tablet PO 5 mg QHS JAYJAY Administration Fluticasone Propionate 2 spray 12/02/24 20:25 Fluticasone Propionate 0.05% Na Spr 16 Gm Btl (*Bkc) NASAL DAILY PRN ALLERGIES Glucagon 1 mg 12/02/24 20:24 Glucagon For Inj 1 Mg Vial IM PRN PRN Hypoglycemia Protocol Glucose 15 gm 12/02/24 20:24 Glucose Oral Gel 15 Gm Of Glucse In 37.5 Gm Tube PO PRN PRN Hypoglycemia Protocol Piperacillin/Tazobactam/Dextrose 3.375 gm in 50 mls @ 100 mls/hr 12/02/24 18:00 12/04/24 06:23 Zosyn 3.375 Gm/Ns 50 Ml IVPB Infused Q6HR JAYJAY Infusion Sodium Chloride 1,000 mls @ 75 mls/hr 12/02/24 13:15 12/03/24 21:08 Normal Saline Iv IV CONT 75 mls/hr .[id number] JAYJAY Administration Dextrose 1,000 mls @ 100 mls/hr 12/02/24 20:24 Dextrose 5% 1,000 Ml IVPB PRN PRN Hypoglycemia Protocol Levothyroxine Sodium 50 mcg 12/03/24 06:30 12/04/24 05:46 Levothyroxine Sodium 50 Mcg Tablet PO 50 mcg DAILY@0630 JAYJAY Administration Lorazepam 0.5 mg 12/02/24 21:09 12/03/24 20:22 Lorazepam (*Crx) 0.5 Mg Tablet PO 0.5 mg HS PRN Administration anxiety Morphine Sulfate 2 mg 12/02/24 13:15 Morphine Sulfate (*Crx) 2 Mg/Ml Inj IV PUSH Q2H PRN Pain Rated 7-10 Ondansetron HCl 4 mg 12/02/24 13:15 Ondansetron Inj 4 Mg/2 Ml Vial IV PUSH Q4H PRN Nausea Tamsulosin HCl 0.4 mg 12/02/24 21:00 12/03/24 20:22 Tamsulosin Hcl 0.4 Mg Capsule PO 0.4 mg QHS JAYJAY Administration Labs Labs: Laboratory Results - last 24 hr 12/03/24 12/03/24 12/03/24 05:52 05:57 12:05 WBC RBC Hgb Hct MCV MCH MCHC RDW Plt Count MPV PT INR APTT Sodium Potassium Chloride Carbon Dioxide Anion Gap BUN Creatinine Estim Creat Clear Calc Estimated GFR Glucose POC Capillary Glucose 70 Calcium Iron 19 L TIBC 206 L % Saturation 9 L Total Bilirubin AST ALT Alkaline Phosphatase Total Protein Albumin Vitamin B12 699.0 Folate > 20.0 H 12/03/24 12/04/24 12/04/24 18:13 00:30 05:58 WBC 11.2 H RBC 3.25 L Hgb 10.2 L Hct 30.7 L MCV 94.5 MCH 31.4 MCHC 33.2 RDW 13.1 Plt Count 336 MPV 10.1 PT 19.3 H INR 1.6 APTT 39.6 H Sodium 131 L Potassium 4.2 Chloride 102 Carbon Dioxide 24 Anion Gap 5 BUN 11 Creatinine 0.94 Estim Creat Clear Calc 46 Estimated GFR > 60 Glucose 93 POC Capillary Glucose 95 110 H Calcium 7.7 L Iron TIBC % Saturation Total Bilirubin 0.8 AST 48 ALT 38 Alkaline Phosphatase 91 Total Protein 6.0 L Albumin 2.7 L Vitamin B12 Folate Quality VTE Prophylaxis VTE prophylaxis: mechanical ordered
[2024-12-04] MEDS: allopurinoL 100 MG TABLET 200 MG PO (08:27)
[2024-12-04] MEDS: ACETAMINOPHEN 500 MG TABLET 1000 MG PO (08:27)
[2024-12-04] MEDS: FAMOTIDINE 20 MG TABLET PO ×2 (08:27→18:29)
[2024-12-04 11:49] LABS: Glucose Point of Care 83 mg/dl (65-105)
--- NOTE | 2024-12-04 13:52 | P.PNGS_ITS ---
Progress Note: A&P Assessment and Plan (1) Acute appendicitis with perforation and peritoneal abscess: Code(s): K35.33 - Acute appendicitis with perforation, localized peritonitis, and gangrene, with abscess Status: Acute Assessment and Plan: * Unable to safely place drain today. Abscess is small enough that it should improve with antibiotics. Continue Zosyn. Home in next 1-2 days as long as WBC not going up and no other concerning signs. Recommend 10 days of Augmentin and Flagyl. Will have patient follow up with me in office in 2 weeks and then will get follow up CT. Can repeat CT sooner if condition worsening. (2) Hyponatremia: Code(s): E87.1 - Hypo-osmolality and hyponatremia Status: Acute (3) Paroxysmal A-fib: Code(s): I48.0 - Paroxysmal atrial fibrillation Status: Chronic Assessment and Plan: * Anticoagulation on hold (4) Anemia: Qualifiers: Anemia type: unspecified type Qualified Code(s): D64.9 - Anemia, unspecified Code(s): D64.9 - Anemia, unspecified Status: Chronic Subjective Subjective Date/Time Seen: 12/04/24 13:52 Interval history: Unsuccessful drain placement today. Small abscess and too many loops of bowel making clear access high risk for bowel injury. Patient doing well. Minimal abdominal pain. No fevers. Bowels moving. Exam GI: Inspection: non-distended GI Palp: Yes Soft to palpation, No Tenderness to palpation present (GI), No Guarding due to palpation present (GI) and No Rebound tenderness present Auscultation: normal bowel sounds Objective Data Vital Signs Vital Signs: Vital Signs - 24 hr 12/03/24 14:00 12/03/24 20:00 12/03/24 20:45 Temperature 98.5 F 97.6 F Pulse Rate 74 77 Respiratory Rate 18 20 Blood Pressure 118/64 131/78 Pulse Oximetry 99 99 Oxygen Delivery Room Air 12/04/24 05:12/04/24 08:00 Temperature 97.1 F L Pulse Rate 75 Respiratory Rate 16 Blood Pressure 114/49 L Pulse Oximetry 98 Oxygen Delivery Room Air Intake/Output Intake/Output: Intake & Output 12/01/24 12/02/24 12/03/24 12/04/24 23:59 23:59 23:59 23:59 Intake Total 1100 3640.0 350 Output Total 200 Balance 1100 3440.0 350 Meds/Results Medications: Active Medications Generic Name Dose Route Start Last Admin Trade Name Freq PRN Reason Stop Dose Admin Acetaminophen 1,000 mg 12/02/24 15:43 12/04/24 08:27 Acetaminophen 500 Mg Tablet PO 1,000 mg Q6H PRN Administration Mild Pain (1-3) or Fever Allopurinol 200 mg 12/03/24 09:00 12/04/24 08:27 Allopurinol 100 Mg Tablet PO 200 mg DAILY JAYJAY Administration Dextrose 12.5 gm 12/02/24 20:24 Dextrose 50% 25 Gm/50 Ml Syringe IV PUSH PRN PRN Hypoglycemia Protocol Famotidine 20 mg 12/02/24 20:40 12/04/24 08:27 Famotidine 20 Mg Tablet PO 20 mg BID JAYJAY Administration Ferrous Sulfate 325 mg 12/04/24 09:00 Ferrous Sulfate [address] PO BID JAYJAY Finasteride 5 mg 12/02/24 21:00 12/03/24 20:22 Finasteride 5 Mg Tablet PO 5 mg QHS JAYJAY Administration Fluticasone Propionate 2 spray 12/02/24 20:25 Fluticasone Propionate 0.05% Na Spr 16 Gm Btl (*Bkc) NASAL DAILY PRN ALLERGIES Glucagon 1 mg 12/02/24 20:24 Glucagon For Inj 1 Mg Vial IM PRN PRN Hypoglycemia Protocol Glucose 15 gm 12/02/24 20:24 Glucose Oral Gel 15 Gm Of Glucse In 37.5 Gm Tube PO PRN PRN Hypoglycemia Protocol Piperacillin/Tazobactam/Dextrose 3.375 gm in 50 mls @ 100 mls/hr 12/02/24 18:00 12/04/24 06:23 Zosyn 3.375 Gm/Ns 50 Ml IVPB Infused Q6HR JAYJAY Infusion Dextrose 1,000 mls @ 100 mls/hr 12/02/24 20:24 Dextrose 5% 1,000 Ml IVPB PRN PRN Hypoglycemia Protocol Levothyroxine Sodium 50 mcg 12/03/24 06:30 12/04/24 05:46 Levothyroxine Sodium 50 Mcg Tablet PO 50 mcg DAILY@0630 JAYJAY Administration Lorazepam 0.5 mg 12/02/24 21:09 12/03/24 20:22 Lorazepam (*Crx) 0.5 Mg Tablet PO 0.5 mg HS PRN Administration anxiety Morphine Sulfate 2 mg 12/02/24 13:15 Morphine Sulfate (*Crx) 2 Mg/Ml Inj IV PUSH Q2H PRN Pain Rated 7-10 Ondansetron HCl 4 mg 12/02/24 13:15 Ondansetron Inj 4 Mg/2 Ml Vial IV PUSH Q4H PRN Nausea Tamsulosin HCl 0.4 mg 12/02/24 21:00 12/03/24 20:22 Tamsulosin Hcl 0.4 Mg Capsule PO 0.4 mg QHS JAYJAY Administration Labs Labs: Laboratory Results - last 24 hr 12/03/24 12/03/24 12/04/24 05:57 18:13 00:30 WBC RBC Hgb Hct MCV MCH MCHC RDW Plt Count MPV PT INR APTT Sodium Potassium Chloride Carbon Dioxide Anion Gap BUN Creatinine Estim Creat Clear Calc Estimated GFR Glucose POC Capillary Glucose 95 110 H Calcium Iron 19 L TIBC 206 L % Saturation 9 L Total Bilirubin AST ALT Alkaline Phosphatase Total Protein Albumin 12/04/24 12/04/24 05:58 11:46 WBC 11.2 H RBC 3.25 L Hgb 10.2 L Hct 30.7 L MCV 94.5 MCH 31.4 MCHC 33.2 RDW 13.1 Plt Count 336 MPV 10.1 PT 19.3 H INR 1.6 APTT 39.6 H Sodium 131 L Potassium 4.2 Chloride 102 Carbon Dioxide 24 Anion Gap 5 BUN 11 Creatinine 0.94 Estim Creat Clear Calc 46 Estimated GFR > 60 Glucose 93 POC Capillary Glucose 83 Calcium 7.7 L Iron TIBC % Saturation Total Bilirubin 0.8 AST 48 ALT 38 Alkaline Phosphatase 91 Total Protein 6.0 L Albumin 2.7 L
[2024-12-04 14:00] VITALS: BP 127/70; PULSE 71; RESP 16; TEMP 35.7; O2SAT 98
[2024-12-04] MEDS: FERROUS SULFATE 325 MG TABLET DR PO ×2 (14:12→18:29)
[2024-12-04 19:45] VITALS: BP 131/64; PULSE 82; RESP 16; TEMP 35.9; O2SAT 100
[2024-12-04] MEDS: FINASTERIDE 5 MG TABLET PO (20:53)
[2024-12-04] MEDS: TAMSULOSIN HCL 0.4 MG CAPSULE PO (20:54)
[2024-12-04] MEDS: LORazepam (*CRX) 0.5 MG TABLET PO (20:54)
[2024-12-05 05:15] VITALS: BP 132/71; PULSE 76; RESP 16; TEMP 36.3; O2SAT 97
[2024-12-05 05:57] LABS: Hematocrit 31.2 % (42.0-52.0); Hemoglobin 10.4 g/dL (14.0-18.0); Mean Corpuscular HGB Conc 33.3 g/dl (32-36); Mean Corpuscular Hemoglobin 31.7 pg (26-34); Mean Corpuscular Volume 95.1 fl (80-100); Mean Platelet Volume 10.1 fl (7.4-10.4); Platelet Count Result 344 k/mm3 (150-375); Red Blood Count 3.28 M/mm3 (4.6-6.20); Red Cell Distribution Width 13.1 % (11.5-14.5); White Blood Count 11.3 K/mm3 (4.5-10.0)
[2024-12-05 06:08] LABS: Alanine Aminotransferase 41 U/L (6-50); Albumin Level 2.8 g/dL (3.5-5.1); Alkaline Phosphatase 92 U/L (38-126); Anion Gap 6 mmol/L (4-12); Aspartate Amino Transferase 52 U/L (17-59); Bilirubin,Total 0.6 mg/dL (0.2-1.3); Blood Urea Nitrogen 12 mg/dL (9-20); Calcium 7.7 mg/dL (8.4-10.2); Carbon Dioxide 22 mmol/L (22-30); Chloride 104 mmol/L (98-107); Estimated CRCL calculation 48 ml/min; Estimated Glomerular Filt Rate > 60; Glucose 86 mg/dL (65-110); Potassium 3.8 mmol/L (3.4-5.0); Sodium 132 mmol/L (137-145)
[2024-12-05] MEDS: PIPERACILLN/TAZ 3.375GM/NS50ML 3.375 GM/50 ML BAG IVPB ×4 (06:08→23:11)
[2024-12-05] MEDS: LEVOTHYROXINE SODIUM 50 MCG TABLET PO (06:08)
--- NOTE | 2024-12-05 07:20 | P.PNIM_ITS ---
Progress Note: A&P Assessment and Plan (1) Acute appendicitis with perforation and peritoneal abscess: Code(s): K35.33 - Acute appendicitis with perforation, localized peritonitis, and gangrene, with abscess Status: Acute Assessment and Plan: CT abdomen/pelvis: 1. Perforated appendicitis with 4.4 x 4.4 x 3.1 cm organizing abscess in the central abdomen at the tip of the inflamed appendix. Differential would include less likely perforated sigmoid diverticulitis. Dr. Fuentes discussed these findings with Dr. Gordon at 9:55 AM. 2. Mild pulmonary edema and small bilateral pleural effusions in the visual ized lower lungs superimposed over NSIP pattern chronic interstitial lung disease. 3. Small amount of nonloculated ascites in the deep pelvis. - Started on Zosyn on 12/02 - Analgesics and antipyretics p.r.n. - Diet: Regular diet - Hold aspirin and Xarelto. SCDs. - Monitor vital signs, I and O's, check stool output, neuro status and patient is a fall risk - Monitor serum electrolytes and CBC - Monitor lactic acid - General surgery consult Plan was for CT guided abscess drainage on 12/04 with IR however patient was unable to have this safely placed. Continue IV antibiotics. 10 days augmentin and flagyl at [place] with follow up in office in [address] (2) Hyponatremia: Code(s): E87.1 - Hypo-osmolality and hyponatremia Status: Acute Assessment and Plan: Recent decline in appetite, suspect reduction due to reduce dietary intake. intermittently low since 2019. Na 128 on admission, improved with fluids monitor (3) Paroxysmal A-fib: Code(s): I48.0 - Paroxysmal atrial fibrillation Status: Chronic Assessment and Plan: Rate controlled not on beta ender Resumed Xarelto as no plan for further procedures. Monitor (4) Anemia: Qualifiers: Anemia type: unspecified type Qualified Code(s): D64.9 - Anemia, unspecified Code(s): D64.9 - Anemia, unspecified Status: Chronic Assessment and Plan: H/H 11.1/33.3 on admission, appears at baseline B12 and folate WNL Iron panel: iron 19, TIBC 206, % sat 9. Started on supplementation. No signs of active bleeding Monitor. Time Spent With Patient Time with patient: 25 - 35 minutes Subjective Date/time seen: 12/05/24 07:20 Interval history: 89 year old male with past medical history of pulmonary fibrosis, CVA, carotid stenosis, anemia, heart failure, hiatal hernia, GERD, and basal cell carcinoma s/p Mohs procedure presents to the hospital with abnormal outpatient imaging which showed a perforated appendix with a 4.4 by 4 x 4 x 3.1 cm organized abscess. Patient is pleasant standing up in the room. He endorses gas pains but has no other complaints denying chest pain, palpitations, shortness of breath, nausea/vomiting and abdominal pain. Tolerating diet well. Patient has been ambulating without assistance in the halls. Denies dizziness/lightheadedness and feels steady on his feet. Review of Systems Review of Systems: All systems reviewed & are unremarkable except as noted in HPI and below Exam Narrative: AF HR 76 RR 16 SpO2 97 BP 132/71 General: male in no acute respiratory distress who is nontoxic appearing, standing up in room HEENT: Normocephalic. Atraumatic. Extraocular movement intact. Sclera clear and anicteric. No facial asymmetry. Chest: Lungs are clear to auscultation bilaterally. No wheezes or crackles. CV: Heart was regular rate and rhythm. Abd: Abdomen was soft. Slight discomfort. Nondistended. Positive bowel sounds. Ext: No clubbing, cyanosis, or edema. DP pulses bilaterally. Neuro: Patient is alert. Speech is clear. Objective Data Vital Signs Vital Signs: Vital Signs - 24 hr 12/04/24 08:00 12/04/24 14:00 12/04/24 19:45 Temperature 96.3 F L 96.7 F L Pulse Rate 71 82 Respiratory Rate 16 16 Blood Pressure 127/70 131/64 Pulse Oximetry 98 100 Oxygen Delivery Room Air 12/04/24 20:00 12/05/24 05:15 Temperature 97.3 F L Pulse Rate 76 Respiratory Rate 16 Blood Pressure 132/71 Pulse Oximetry 97 Oxygen Delivery Room Air Intake/Output Intake/Output: Intake & Output 12/02/24 12/03/24 12/04/24 12/05/24 23:59 23:59 23:59 23:59 Intake Total 1100 3640.0 1380 400 Output Total 200 Balance 1100 3440.0 1380 400 Meds/Results Medications: Active Medications Generic Name Dose Route Start Last Admin Trade Name Freq PRN Reason Stop Dose Admin Acetaminophen 1,000 mg 12/02/24 15:43 12/04/24 08:27 Acetaminophen 500 Mg Tablet PO 1,000 mg Q6H PRN Administration Mild Pain (1-3) or Fever Allopurinol 200 mg 12/03/24 09:00 12/04/24 08:27 Allopurinol 100 Mg Tablet PO 200 mg DAILY JAYJAY Administration Dextrose 12.5 gm 12/02/24 20:24 Dextrose 50% 25 Gm/50 Ml Syringe IV PUSH PRN PRN Hypoglycemia Protocol Famotidine 20 mg 12/02/24 20:40 12/04/24 18:29 Famotidine 20 Mg Tablet PO 20 mg BID JAYJAY Administration Ferrous Sulfate 325 mg 12/04/24 09:00 12/04/24 18:29 Ferrous Sulfate [address] PO 325 mg BID JAYJAY Administration Finasteride 5 mg 12/02/24 21:00 12/04/24 20:53 Finasteride 5 Mg Tablet PO 5 mg QHS JAYJAY Administration Fluticasone Propionate 2 spray 12/02/24 20:25 Fluticasone Propionate 0.05% Na Spr 16 Gm Btl (*Bkc) NASAL DAILY PRN ALLERGIES Glucagon 1 mg 12/02/24 20:24 Glucagon For Inj 1 Mg Vial IM PRN PRN Hypoglycemia Protocol Glucose 15 gm 12/02/24 20:24 Glucose Oral Gel 15 Gm Of Glucse In 37.5 Gm Tube PO PRN PRN Hypoglycemia Protocol Piperacillin/Tazobactam/Dextrose 3.375 gm in 50 mls @ 100 mls/hr 12/02/24 18:00 12/05/24 06:38 Zosyn 3.375 Gm/Ns 50 Ml IVPB Infused Q6HR JAYJAY Infusion Dextrose 1,000 mls @ 100 mls/hr 12/02/24 20:24 Dextrose 5% 1,000 Ml IVPB PRN PRN Hypoglycemia Protocol Levothyroxine Sodium 50 mcg 12/03/24 06:30 12/05/24 06:08 Levothyroxine Sodium 50 Mcg Tablet PO 50 mcg DAILY@0630 JAYJAY Administration Lorazepam 0.5 mg 12/02/24 21:09 12/04/24 20:54 Lorazepam (*Crx) 0.5 Mg Tablet PO 0.5 mg HS PRN Administration anxiety Morphine Sulfate 2 mg 12/02/24 13:15 Morphine Sulfate (*Crx) 2 Mg/Ml Inj IV PUSH Q2H PRN Pain Rated 7-10 Ondansetron HCl 4 mg 12/02/24 13:15 Ondansetron Inj 4 Mg/2 Ml Vial IV PUSH Q4H PRN Nausea Tamsulosin HCl 0.4 mg 12/02/24 21:00 12/04/24 20:54 Tamsulosin Hcl 0.4 Mg Capsule PO 0.4 mg QHS JAYJAY Administration Radiology Results: ITS Impressions Abdomen Ultrasound 12/04/24 13:53 IMPRESSION: Unsuccessful/aborted CT and ultrasound-guided drainage of a well protected intra-abdominal abscess, at the root of the mesentery, surrounded by bowel, precluding a safe window, as detailed above. These findings were discussed with Dr. Elaine at the time of examination and interpretation. Catheter Placement CT 12/04/24 13:53 IMPRESSION: Unsuccessful/aborted CT and ultrasound-guided drainage of a well protected intra-abdominal abscess, at the root of the mesentery, surrounded by bowel, precluding a safe window, as detailed above. These findings were discussed with Dr. Elaine at the time of examination and interpretation. Labs Labs: Laboratory Results - last 24 hr 12/04/24 12/05/24 11:46 05:24 WBC 11.3 H RBC 3.28 L Hgb 10.4 L Hct 31.2 L MCV 95.1 MCH 31.7 MCHC 33.3 RDW 13.1 Plt Count 344 MPV 10.1 Sodium 132 L Potassium 3.8 Chloride 104 Carbon Dioxide 22 Anion Gap 6 BUN 12 Creatinine 0.90 Estim Creat Clear Calc 48 Estimated GFR > 60 Glucose 86 POC Capillary Glucose 83 Calcium 7.7 L Total Bilirubin 0.6 AST 52 ALT 41 Alkaline Phosphatase 92 Total Protein 6.0 L Albumin 2.8 L Quality VTE Prophylaxis VTE prophylaxis: mechanical ordered
[2024-12-05] MEDS: allopurinoL 100 MG TABLET 200 MG PO (08:17)
[2024-12-05] MEDS: FERROUS SULFATE 325 MG TABLET DR PO ×2 (08:17→17:36)
[2024-12-05] MEDS: FAMOTIDINE 20 MG TABLET PO ×2 (08:17→17:36)
[2024-12-05] MEDS: SIMETHICONE 80 MG TAB.CHEW PO (11:31)
--- NOTE | 2024-12-05 12:18 | WPDPN ---
Progress Note: A&P Assessment and Plan (1) Acute appendicitis with perforation and peritoneal abscess: Code(s): K35.33 - Acute appendicitis with perforation, localized peritonitis, and gangrene, with abscess Status: Acute Assessment and Plan: Patient seems to be responding non operative management for perforated appendicitis with abscess. Unfortunately abscess cannot be drained percutaneously by Interventional Radiology due to overlying bowel. However the patient is doing well and tolerating solid food. White blood count is normal. Will continue him on IV antibiotics today. If he still is doing well tomorrow then can discharge home on oral antibiotics with follow-up Dr. Elaine in the office. Subjective Date/time seen: 12/05/24 12:18 Interval history: Patient feels good. Only minimal right lower quadrant abdominal pain. White blood count is normal. He is tolerating solid food. Exam GI: Other: Abdomen is soft and nondistended. Minimal tenderness to palpation right lower quadrant. No guarding. Objective Data Vital Signs Vital Signs: Vital Signs - 24 hr 12/04/24 14:00 12/04/24 19:45 12/04/24 20:00 Temperature 35.7 C L 35.9 C L Pulse Rate 71 82 Respiratory Rate 16 16 Blood Pressure 127/70 131/64 Pulse Oximetry 98 100 Oxygen Delivery Room Air 12/05/24 05:15 12/05/24 08:17 Temperature 36.3 C L Pulse Rate 76 Respiratory Rate 16 Blood Pressure 132/71 Pulse Oximetry 97 Oxygen Delivery Room Air Intake/Output Intake/Output: Intake & Output 12/02/24 12/03/24 12/04/24 12/05/24 23:59 23:59 23:59 23:59 Intake Total 1100 3640.0 1380 760 Output Total 200 Balance 1100 3440.0 1380 760 Meds/Results Medications: Active Medications Generic Name Dose Route Start Last Admin Trade Name Freq PRN Reason Stop Dose Admin Acetaminophen 1,000 mg 12/02/24 15:43 12/04/24 08:27 Acetaminophen 500 Mg Tablet PO 1,000 mg Q6H PRN Administration Mild Pain (1-3) or Fever Allopurinol 200 mg 12/03/24 09:00 12/05/24 08:17 Allopurinol 100 Mg Tablet PO 200 mg DAILY JAYJAY Administration Dextrose 12.5 gm 12/02/24 20:24 Dextrose 50% 25 Gm/50 Ml Syringe IV PUSH PRN PRN Hypoglycemia Protocol Famotidine 20 mg 12/02/24 20:40 12/05/24 08:17 Famotidine 20 Mg Tablet PO 20 mg BID JAYJAY Administration Ferrous Sulfate 325 mg 12/04/24 09:00 12/05/24 08:17 Ferrous Sulfate [address] PO 325 mg BID JAYJAY Administration Finasteride 5 mg 12/02/24 21:00 12/04/24 20:53 Finasteride 5 Mg Tablet PO 5 mg QHS JAYJAY Administration Fluticasone Propionate 2 spray 12/02/24 20:25 Fluticasone Propionate 0.05% Na Spr 16 Gm Btl (*Bkc) NASAL DAILY PRN ALLERGIES Glucagon 1 mg 12/02/24 20:24 Glucagon For Inj 1 Mg Vial IM PRN PRN Hypoglycemia Protocol Glucose 15 gm 12/02/24 20:24 Glucose Oral Gel 15 Gm Of Glucse In 37.5 Gm Tube PO PRN PRN Hypoglycemia Protocol Piperacillin/Tazobactam/Dextrose 3.375 gm in 50 mls @ 100 mls/hr 12/02/24 18:00 12/05/24 11:31 Zosyn 3.375 Gm/Ns 50 Ml IVPB 100 mls/hr Q6HR JAYJAY Administration Dextrose 1,000 mls @ 100 mls/hr 12/02/24 20:24 Dextrose 5% 1,000 Ml IVPB PRN PRN Hypoglycemia Protocol Levothyroxine Sodium 50 mcg 12/03/24 06:30 12/05/24 06:08 Levothyroxine Sodium 50 Mcg Tablet PO 50 mcg DAILY@0630 JAYJAY Administration Lorazepam 0.5 mg 12/02/24 21:09 12/04/24 20:54 Lorazepam (*Crx) 0.5 Mg Tablet PO 0.5 mg HS PRN Administration anxiety Morphine Sulfate 2 mg 12/02/24 13:15 Morphine Sulfate (*Crx) 2 Mg/Ml Inj IV PUSH Q2H PRN Pain Rated 7-10 Ondansetron HCl 4 mg 12/02/24 13:15 Ondansetron Inj 4 Mg/2 Ml Vial IV PUSH Q4H PRN Nausea Simethicone 80 mg 12/05/24 10:55 12/05/24 11:31 Simethicone 80 Mg Tab.Chew PO 80 mg QID PRN Administration gas retention Tamsulosin HCl 0.4 mg 12/02/24 21:00 12/04/24 20:54 Tamsulosin Hcl 0.4 Mg Capsule PO 0.4 mg QHS JAYJAY Administration Radiology Results: ITS Impressions Abdomen Ultrasound 12/04/24 13:53 IMPRESSION: Unsuccessful/aborted CT and ultrasound-guided drainage of a well protected intra-abdominal abscess, at the root of the mesentery, surrounded by bowel, precluding a safe window, as detailed above. These findings were discussed with Dr. Elaine at the time of examination and interpretation. Catheter Placement CT 12/04/24 13:53 IMPRESSION: Unsuccessful/aborted CT and ultrasound-guided drainage of a well protected intra-abdominal abscess, at the root of the mesentery, surrounded by bowel, precluding a safe window, as detailed above. These findings were discussed with Dr. Elaine at the time of examination and interpretation. Labs Labs: Laboratory Results - last 24 hr 12/05/24 05:24 WBC 11.3 H RBC 3.28 L Hgb 10.4 L Hct 31.2 L MCV 95.1 MCH 31.7 MCHC 33.3 RDW 13.1 Plt Count 344 MPV 10.1 Sodium 132 L Potassium 3.8 Chloride 104 Carbon Dioxide 22 Anion Gap 6 BUN 12 Creatinine 0.90 Estim Creat Clear Calc 48 Estimated GFR > 60 Glucose 86 Calcium 7.7 L Total Bilirubin 0.6 AST 52 ALT 41 Alkaline Phosphatase 92 Total Protein 6.0 L Albumin 2.8 L
[2024-12-05 14:00] VITALS: BP 111/65; PULSE 78; RESP 16; TEMP 36.4; O2SAT 98
[2024-12-05] MEDS: ASPIRIN 81 MG CHEWABLE TABLET PO (17:36)
[2024-12-05] MEDS: FINASTERIDE 5 MG TABLET PO (21:00)
[2024-12-05] MEDS: TAMSULOSIN HCL 0.4 MG CAPSULE PO (21:00)
[2024-12-05] MEDS: RIVAROXABAN 20 MG TABLET PO (21:01)
[2024-12-05] MEDS: LORazepam (*CRX) 0.5 MG TABLET PO (21:01)
[2024-12-05 22:00] VITALS: BP 126/69; PULSE 79; RESP 14; TEMP 36.2; O2SAT 99
[2024-12-06 05:48] VITALS: BP 110/67; PULSE 72; RESP 12; TEMP 36.3; O2SAT 99
[2024-12-06] MEDS: PIPERACILLN/TAZ 3.375GM/NS50ML 3.375 GM/50 ML BAG IVPB ×2 (06:07→12:13)
[2024-12-06] MEDS: LEVOTHYROXINE SODIUM 50 MCG TABLET PO (06:07)
[2024-12-06 06:17] LABS: Hemoglobin 10.4 g/dL (14.0-18.0); Mean Corpuscular HGB Conc 32.5 g/dl (32-36); Mean Corpuscular Hemoglobin 31.1 pg (26-34); Mean Corpuscular Volume 95.8 fl (80-100); Mean Platelet Volume 10.3 fl (7.4-10.4); Platelet Count Result 360 k/mm3 (150-375); Red Blood Count 3.34 M/mm3 (4.6-6.20); Red Cell Distribution Width 13.3 % (11.5-14.5); White Blood Count 7.3 K/mm3 (4.5-10.0)
[2024-12-06 06:33] LABS: Alanine Aminotransferase 41 U/L (6-50); Albumin Level 2.6 g/dL (3.5-5.1); Anion Gap 6 mmol/L (4-12); Aspartate Amino Transferase 41 U/L (17-59); Bilirubin,Total 0.5 mg/dL (0.2-1.3); Blood Urea Nitrogen 13 mg/dL (9-20); Calcium 7.9 mg/dL (8.4-10.2); Carbon Dioxide 23 mmol/L (22-30); Chloride 106 mmol/L (98-107); Estimated CRCL calculation 44 ml/min; Estimated Glomerular Filt Rate > 60; Glucose 84 mg/dL (65-110); Potassium 3.9 mmol/L (3.4-5.0); Sodium 135 mmol/L (137-145)
[2024-12-06 06:34] LABS: Alkaline Phosphatase 85 U/L (38-126)
[2024-12-06] MEDS: FAMOTIDINE 20 MG TABLET PO (08:19)
[2024-12-06] MEDS: FERROUS SULFATE 325 MG TABLET DR PO (08:19)
[2024-12-06] MEDS: SIMETHICONE 80 MG TAB.CHEW PO (08:19)
[2024-12-06] MEDS: allopurinoL 100 MG TABLET 200 MG PO (08:19)
--- NOTE | 2024-12-06 12:04 | P.PNIM_ITS ---
Progress Note: A&P Assessment and Plan (1) Acute appendicitis with perforation and peritoneal abscess: Code(s): K35.33 - Acute appendicitis with perforation, localized peritonitis, and gangrene, with abscess Status: Acute Assessment and Plan: CT abdomen/pelvis: 1. Perforated appendicitis with 4.4 x 4.4 x 3.1 cm organizing abscess in the central abdomen at the tip of the inflamed appendix. Differential would include less likely perforated sigmoid diverticulitis. Dr. Fuentes discussed these findings with Dr. Gordon at 9:55 AM. 2. Mild pulmonary edema and small bilateral pleural effusions in the visual ized lower lungs superimposed over NSIP pattern chronic interstitial lung disease. 3. Small amount of nonloculated ascites in the deep pelvis. - Started on Zosyn on 12/02 - Analgesics and antipyretics p.r.n. - Diet: Regular diet - Hold aspirin and Xarelto. SCDs. - Monitor vital signs, I and O's, check stool output, neuro status and patient is a fall risk - Monitor serum electrolytes and CBC - Monitor lactic acid - General surgery consult Plan was for CT guided abscess drainage on 12/04 with IR however patient was unable to have this safely placed. --Surgery recommends 10 days augmentin and flagyl at DC with follow up in office in [address] --Recommend sending him with 3 week of antibiotics and continuing antibiotics until after CT resulted. He may need a longer course since unable to drain abscess and it would likely be more cost effective than ordering 2 courses. --Discussed monitoring for fevers, abdominal pain, nausea/vomiting and calling surgery office if worsening symptoms, alternatively could call PCP or GI (2) Hyponatremia: Code(s): E87.1 - Hypo-osmolality and hyponatremia Status: Acute Assessment and Plan: Recent decline in appetite, suspect reduction due to reduce dietary intake. intermittently low since 2019. Na 128 on admission, improved with fluids monitor (3) Paroxysmal A-fib: Code(s): I48.0 - Paroxysmal atrial fibrillation Status: Chronic Assessment and Plan: Rate controlled not on beta ender Resumed Xarelto as no plan for further procedures. Monitor (4) Anemia: Qualifiers: Anemia type: unspecified type Qualified Code(s): D64.9 - Anemia, unspecified Code(s): D64.9 - Anemia, unspecified Status: Chronic Assessment and Plan: H/H 11.1/33.3 on admission, appears at baseline B12 and folate WNL Iron panel: iron 19, TIBC 206, % sat 9. Started on supplementation. No signs of active bleeding Monitor. Subjective Date/time seen: 12/06/24 12:04 Interval history: 89 year old male with past medical history of pulmonary fibrosis, CVA, carotid stenosis, anemia, heart failure, hiatal hernia, GERD, and basal cell carcinoma s/p Mohs procedure presents to the hospital with abnormal outpatient imaging which showed a perforated appendix with a 4.4 by 4 x 4 x 3.1 cm organized abscess. Patient is pleasant standing up in the room. He endorses gas pains but has no other complaints denying chest pain, palpitations, shortness of breath, nausea/vomiting and abdominal pain. Tolerating diet well. Patient has been ambul ating without assistance in the halls. Denies dizziness/lightheadedness and feels steady on his feet. Review of Systems Review of Systems: All systems reviewed & are unremarkable except as noted in HPI and below Exam Narrative: AF HR 76 RR 16 SpO2 97 BP 132/71 General: male in no acute respiratory distress who is nontoxic appearing, standing up in room HEENT: Normocephalic. Atraumatic. Extraocular movement intact. Sclera clear and anicteric. No facial asymmetry. Chest: Lungs are clear to auscultation bilaterally. No wheezes or crackles. CV: Heart was regular rate and rhythm. Abd: Abdomen was soft. Slight discomfort. Nondistended. Positive bowel sounds. Ext: No clubbing, cyanosis, or edema. DP pulses bilaterally. Neuro: Patient is alert. Speech is clear. Objective Data Vital Signs Vital Signs: Vital Signs - 24 hr 12/05/24 14:00 12/05/24 20:00 12/05/24 22:00 Temperature 97.6 F 97.1 F L Pulse Rate 78 79 Respiratory Rate 16 14 Blood Pressure 111/65 126/69 Pulse Oximetry 98 99 Oxygen Delivery Room Air 12/06/24 05:48 12/06/24 08:19 Temperature 97.4 F L Pulse Rate 72 Respiratory Rate 12 Blood Pressure 110/67 Pulse Oximetry 99 Oxygen Delivery Room Air Intake/Output Intake/Output: Intake & Output 12/03/24 12/04/24 12/05/24 12/06/24 23:59 23:59 23:59 23:59 Intake Total 3640.0 1380 1150 844 Output Total 200 Balance 3440.0 1380 1150 844 Meds/Results Medications: Active Medications Generic Name Dose Route Start Last Admin Trade Name Freq PRN Reason Stop Dose Admin Acetaminophen 1,000 mg 12/02/24 15:43 12/04/24 08:27 Acetaminophen 500 Mg Tablet PO 1,000 mg Q6H PRN Administration Mild Pain (1-3) or Fever Allopurinol 200 mg 12/03/24 09:00 12/06/24 08:19 Allopurinol 100 Mg Tablet PO 200 mg DAILY JAYJAY Administration Aspirin 81 mg 12/05/24 14:50 12/05/24 17:36 Aspirin 81 Mg Chewable Tablet PO 81 mg Q48HR JAYJAY Administration Dextrose 12.5 gm 12/02/24 20:24 Dextrose 50% 25 Gm/50 Ml Syringe IV PUSH PRN PRN Hypoglycemia Protocol Famotidine 20 mg 12/02/24 20:40 12/06/24 08:19 Famotidine 20 Mg Tablet PO 20 mg BID JAYJAY Administration Ferrous Sulfate 325 mg 12/04/24 09:00 12/06/24 08:19 Ferrous Sulfate [address] PO 325 mg BID JAYJAY Administration Finasteride 5 mg 12/02/24 21:00 12/05/24 21:00 Finasteride 5 Mg Tablet PO 5 mg QHS JAYJAY Administration Fluticasone Propionate 2 spray 12/02/24 20:25 Fluticasone Propionate 0.05% Na Spr 16 Gm Btl (*Bkc) NASAL DAILY PRN ALLERGIES Glucagon 1 mg 12/02/24 20:24 Glucagon For Inj 1 Mg Vial IM PRN PRN Hypoglycemia Protocol Glucose 15 gm 12/02/24 20:24 Glucose Oral Gel 15 Gm Of Glucse In 37.5 Gm Tube PO PRN PRN Hypoglycemia Protocol Piperacillin/Tazobactam/Dextrose 3.375 gm in 50 mls @ 100 mls/hr 12/02/24 18:00 12/06/24 06:37 Zosyn 3.375 Gm/Ns 50 Ml IVPB Infused Q6HR JAYJAY Infusion Dextrose 1,000 mls @ 100 mls/hr 12/02/24 20:24 Dextrose 5% 1,000 Ml IVPB PRN PRN Hypoglycemia Protocol Levothyroxine Sodium 50 mcg 12/03/24 06:30 12/06/24 06:07 Levothyroxine Sodium 50 Mcg Tablet PO 50 mcg DAILY@0630 JAYJAY Administration Lorazepam 0.5 mg 12/02/24 21:09 12/05/24 21:01 Lorazepam (*Crx) 0.5 Mg Tablet PO 0.5 mg HS PRN Administration anxiety Morphine Sulfate 2 mg 12/02/24 13:15 Morphine Sulfate (*Crx) 2 Mg/Ml Inj IV PUSH Q2H PRN Pain Rated 7-10 Ondansetron HCl 4 mg 12/02/24 13:15 Ondansetron Inj 4 Mg/2 Ml Vial IV PUSH Q4H PRN Nausea Rivaroxaban 20 mg 12/05/24 21:00 12/05/24 21:01 Rivaroxaban 20 Mg Tablet PO 20 mg QHS JAYJAY Administration Simethicone 80 mg 12/05/24 10:55 12/06/24 08:19 Simethicone 80 Mg Tab.Chew PO 80 mg QID PRN Administration gas retention Tamsulosin HCl 0.4 mg 12/02/24 21:00 12/05/24 21:00 Tamsulosin Hcl 0.4 Mg Capsule PO 0.4 mg QHS JAYJAY Administration Radiology Results: ITS Impressions Abdomen Ultrasound 12/04/24 13:53 IMPRESSION: Unsuccessful/aborted CT and ultrasound-guided drainage of a well protected intra-abdominal abscess, at the root of the mesentery, surrounded by bowel, precluding a safe window, as detailed above. These findings were discussed with Dr. Elaine at the time of examination and interpretation. Catheter Placement CT 12/04/24 13:53 IMPRESSION: Unsuccessful/aborted CT and ultrasound-guided drainage of a well protected intra-abdominal abscess, at the root of the mesentery, surrounded by bowel, precluding a safe window, as detailed above. These findings were discussed with Dr. Elaine at the time of examination and interpretation. Labs Labs: Laboratory Results - last 24 hr 12/06/24 05:41 WBC 7.3 RBC 3.34 L Hgb 10.4 L Hct 32.0 L MCV 95.8 MCH 31.1 MCHC 32.5 RDW 13.3 Plt Count 360 MPV 10.3 Sodium 135 L Potassium 3.9 Chloride 106 Carbon Dioxide 23 Anion Gap 6 BUN 13 Creatinine 0.97 Estim Creat Clear Calc 44 Estimated GFR > 60 Glucose 84 Calcium 7.9 L Total Bilirubin 0.5 AST 41 ALT 41 Alkaline Phosphatase 85 Total Protein 6.0 L Albumin 2.6 L Quality VTE Prophylaxis VTE prophylaxis: mechanical ordered Hospitalist [facility] Advance Care Plan I have confirmed that the patient's Advanced Care Plan is present, code status is documented, or surrogate decision maker is listed in patient medical record.: Yes Medication Reconciliation I have utilized all available resources to obtain, update and review the patients current medications (includes all prescriptions, OTC, herbals, cannabis, and nutritional supplements).: Yes
--- NOTE | 2024-12-06 12:26 | PC.NURSE ---
Report called to Jen at [facility]. No questions or concerns at this time. Patient's daughter to return patient to facility.
[2024-12-06 14:00] VITALS: BP 107/73; PULSE 71; RESP 16; TEMP 36.1; O2SAT 100
== END 2024-12-06 15:25 | disposition home or self-care (01) | DRG 372 ==
LOC: ANHED 11:33 → ANH3MEDSUR 13:52
PROVIDERS: Nurse Practitioner Family; Student in an Organized Health Care Education/Training Program; Surgery; Admitting Provider Hospitalist; Emergency Provider Emergency Medicine; PCP Family Medicine; Visit Provider Nurse Practitioner Acute Care
DX: K35.33 Acute appendicitis with perforation, localized peritonitis, and gangrene, with abscess (principal); E87.1 Hypo-osmolality and hyponatremia; D64.9 Anemia, unspecified; I65.23 Occlusion and stenosis of bilateral carotid arteries; I50.9 Heart failure, unspecified; K21.00 Gastro-esophageal reflux disease with esophagitis, without bleeding; I48.0 Paroxysmal atrial fibrillation; J84.10 Pulmonary fibrosis, unspecified; K44.9 Diaphragmatic hernia without obstruction or gangrene; R91.1 Solitary pulmonary nodule; Z86.73 Personal history of transient ischemic attack (TIA), and cerebral infarction without residual deficits; Z85.828 Personal history of other malignant neoplasm of skin; Z95.0 Presence of cardiac pacemaker; Z79.01 Long term (current) use of anticoagulants
CPT/HCPCS: 36415; 75989; 76705; 80048; 80053; 81001; 82607; 82746; 82948; 83540; 83550; 85025; 85027; 85610; 85730; 96365; 96375; 99285; A9270; C1769; G0378; J2543; J7030; J7040

== ENCOUNTER 2025-01-04 07:16 | Outpatient (CLI) | payer MEDICARE, OTHER, SELFPAY ==
--- NOTE | ~2025-01-04 | CT_ITS ---
CT of the Abdomen and Pelvis: Indication: Acute appendicitis Technique: 2.5 mm axial scans were obtained through the abdomen and pelvis following intravenous adm inistration of 100 cc of Omnipaque 350. Dose reduction technique was used on this scan by utilizing a utomated exposure control and iterative reconstruction technique. The dose-length product (DLP) was 3 62.92 mGy-cm. COMPARISON: 12/02/2024 Findings: Scans through the lung bases there is a bibasilar chronic interstitial disease with extens cecilia subpleural reticulation and bibasilar diffuse interstitial thickening. Small bilateral pleural ef fusions are present. The liver, spleen, pancreas, gallbladder, adrenals and kidneys are within normal limits. No evidence of aortic aneurysm. No lymphadenopathy. No bowel obstruction or bowel wall thickening. Small fat-containing umbilical hernia noted. Periappen diceal abscess/phlegmon adjacent to the tip of the appendix is markedly decreased in size, now measur ing approximately 2.3 x 1.6 cm, with single small bubble of extraluminal air probably present. Images through the pelvis were performed. Urinary bladder unremarkable. No pelvic mass seen. Trace pe lvic ascites. Impression: Marked interval improvement in periappendiceal abscess/phlegmon, as detailed above. Chronic bibasilar interstitial pulmonary disease. Small bilateral pleural effusions. Reviewed, dictated and finalized at location . Impression: Marked interval improvement in periappendiceal abscess/phlegmon, as detailed ab ove. Chronic bibasilar interstitial pulmonary disease. Small bilateral pleural effusions.
--- OUTSIDE RECORDS SUMMARY | 2025-01-04 07:21 | XMS_ITS | Encounter Summary ---
Author Organization [facility] Address [address] [facility] [address] [place] [address] Care Team Providers Care Casino Banker Name Role Phone Mohsen Garcia MD Primary Care Provider Encounter Details Date Type Department Care Team (Late st Contact Info) Description 2016 Orders Only [facility] ProviderGerardo MD [address] [place] [address] Social History Tobacco Use Types Packs/Day Years Used Date Smoking Tobacco: Former Cigarettes Q uit: 08/05/1964 Alcohol Use Standard Drinks/Week Comments Yes 0 (1 standard drink = 0.6 oz pur e alcohol) Sex and Gender Information Value Date Recorded Sex Assigned at Not on file 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
--- OUTSIDE RECORDS SUMMARY | 2025-01-04 07:21 | XMS_ITS | Clinical Summary ---
Author Organization [facility] [address] Address [address] [place] [address] Care Team Providers Care Motor Analyst Name Role Phone Mohsen Garcia MD Primary [...] 0 5 Active tamsulosin (FLOMAX) 0.4 mg capsule,extende d release 24hr take 1 capsule by oral [...] sodium (VOLTAREN) 1 % gel Apply topically Acti ve metroNIDAZOLE (FLAGYL) 500 mg tablet TAKE 1 TABLET BY MOUTH EVERY 8 HOURS FOR 7 DAYS 4 Active lansoprazole (PREVACID) 30 mg capsule 4 Active pravastatin (PRAVACHOL) 20 mg tablet Take 1 tablet (20 mg total) by mouth daily 90 tablet 2 4 Active rivaroxaban (Xarelto) 20 mg tablet Take 1 tablet (20 mg total) by mouth daily 90 tablet 5 Active Active Problems Problem Noted Date Diagnosed Date [...] of cardiac pacemaker 02/13/2016 Overview (06/08/2024): Medtronic [place] Dual Pacemaker Dx; SSS, PAT. 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 Presenting rhythm: A sensed/V sensed AP-30.6%, BRINE ROOM LABORER-< 0.1% 3 AT/AF episodes noted, longest episode was 5 hours and 12 minutes in duration, IEGM demonstrates AFib. AF [place] 0.2%. 4 Ventricular high rate episodes detected, IEGM demonstrates NSVT with the longest episode lasting 38 seconds. Medications: Xarelto 20 mg See scanned report. Office pacemaker follow up: 11/03/25 [facility] remote f/u 01/27/25. Iam Comer, LOVELY Rey Grissom MD [facility] CARDIAC SERVICES PROCEDURES F inal Result from Last 3 Months Insurance MEDICARE [employer] MEDICARE FOR LIFE Care Teams Motor Analyst Relationship Specialty Start Date End Date Mohsen Garcia MD [address] [facility] [address] [place] [address] PCP - General 12/15/13
--- OUTSIDE RECORDS SUMMARY | 2025-01-04 07:21 | XMS_ITS | Encounter Summary ---
Author Organization [facility] Address [address] [facility] [address] [place] [address] Care Team Providers Care International Trade Teacher Name Role Phone Mohsen Garcia MD Primary Care Provider Encounter Details Date Type Department Care Team (Late st Contact Info) Description 08/08/2016 Orders Only [facility] ProviderGerardo MD [address] [place] [address] Social History Tobacco Use Types Packs/Day Years Used Date Smoking Tobacco: Former Cigarettes Q uit: 08/05/1964 Alcohol Use Standard Drinks/Week Comments Yes 0 (1 standard drink = 0.6 oz pur e alcohol) Sex and Gender Information Value Date Recorded Sex Assigned at Not on file 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
--- OUTSIDE RECORDS SUMMARY | 2025-01-04 07:21 | XMS_ITS | Patient Health Record ---
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
--- OUTSIDE RECORDS SUMMARY | 2025-01-04 07:21 | XMS_ITS | Referral Summary ---
Author Organization [facility] [address] [facility] [address] Address [address] [place] [address] Care Team Providers Care Venetian Blind Washer Name Role Phone Mohsen Garcia MD Primary Care Provider Encounters Date Type Department Care Team Description 11/27/[address] [facility] Cardiology [address] [place] [address] [address] [place] [address] Rey Grissom MD Med Refill 10/20/2024 7:00 AM CDT Ancillary Procedure [facility] Medical [facility] Cardiology [address] [facility] [address] [place] [phone] Presence of cardiac pacemaker (Primary Dx); [...] of cardiac pacemaker 02/13/2016 Overview (06/08/2024): Medtronic [place] Dual Pacemaker Dx; SSS, PAT. 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 Presenting rhythm: A sensed/V sensed AP-30.6%, SOCIAL WORK ASSISTANT-< 0.1% 3 AT/AF episodes noted, longest episode was 5 hours and 12 minutes in duration, IEGM demonstrates AFib. AF Hand[place] 0.2%. 4 Ventricular high rate episodes detected, IEGM demonstrates NSVT with the longest episode lasting 38 seconds. Medications: Xarelto 20 mg See scanned report. Office pacemaker follow up: 11/03/25 [facility] remote f/u 01/27/25. Iam Comer RN Rey Grissom MD CV CARDIAC SERVICES PROCEDURES F inal Result from Last 3 Months Insurance MEDICARE FOR LIFE MEDICARE FOR LIFE Care Teams Venetian Blind Washer Relationship Specialty Start Date End Date Mohsen Garcia MD [address] [place] [address] PCP - General 12/15/13
== END 2025-01-04 07:17 | disposition home or self-care (01) ==
PROVIDERS: PCP Family Medicine; Visit Provider Surgery
DX: K35.33 Acute appendicitis with perforation, localized peritonitis, and gangrene, with abscess (principal); J90 Pleural effusion, not elsewhere classified; J84.9 Interstitial pulmonary disease, unspecified
CPT/HCPCS: 74177; Q9967

== ENCOUNTER 2025-02-02 02:13 | Day surgery (SDC) | payer MEDICARE, OTHER, SELFPAY ==
--- NOTE | 2025-02-01 10:05 | PC.NURSE ---
Report to the Outpatient Waiting Room, entrance under the green pavilion located off [facility], at time __10:30 AM on date _02/02/25 . Planned Procedure Time: _1230 .? Time changes happen often and if your time is changed the preop area will call you the afternoon before. - You and your visitor will be asked to self-screen and do not enter if you have any COVID symptoms. Please call surgeon if you need to reschedule. - A mask is optional within the hospital at this time. Patients may have clear liquids (water, carbonated beverages, clear teas, apple juice) until 3 hours prior to surgery ( 9:30 AM) with a maximum of 20 ounces. - No food from midnight until time of surgery and no smoking, or chewing tobacco (or any form of nicotine). No chewing gum, candy or mints. - Take only the following medications with a SIP of water on the morning of surgery: __LEVOTHYROXINE DO NOT STOP ANY OF YOUR OTHER PRESCRIPTION MEDICATIONS PRIOR TO SURGERY EXCEPT THE FOLLOWING Hold all vitamins and supplements for 3 days per anesthesiologist. Medications to discontinue per physician ___PT STATES LAST DOSE XARELTO AND ASPIRIN 01/29/25 Please no make-up, nail swedish, hairspray, perfume, deodorant, or body powder the day of surgery.? No jewelry (including any body piercings) or valuables the day of surgery, leave them at home.? Please take a shower or bath the night before, or the morning of, surgery with an antibacterial soap.? Wear comfortable, loose fitting clothing.? Children are encouraged to wear pajamas. - Jewelry must be removed prior to entering the operating room.? Rings and piercings that are not removed may be cut off. - The hospital will not accept responsibility for valuables.? - Please leave all valuables, including medications, at home the day of surgery. If you are going home after surgery, a licensed haul driver must drive you home.? - NO public transportation without another adult if you receive anesthesia. - We recommend that an adult stay with you for 24 hours following discharge. - We also recommend that you do not drive, make important decision, drink alcoholic beverages, or take any drugs that were not prescribed by your health care provider for at least 24 hours after your discharge time. Follow any additional instructions given to you from your surgeon. Telephone instructions given to __PATIENT and asked if any additional questions and then verbalized understanding. Patient advised to call surgeon office or pre surgery nurse liaison [phone] if any additional questions.
[2025-02-01 10:25] VITALS: BMI 20.8
[2025-02-02] VITALS (14 sets, daily range): BP systolic 108–152; BP diastolic 54–89; PULSE 66–94; RESP 13–20; TEMP 35.7–36.8; O2SAT 95–100
--- OUTSIDE RECORDS SUMMARY | 2025-02-02 02:16 | XMS_ITS | Encounter Summary ---
Author Organization [facility] Address [address] [facility] [address] [place] [address] Care Team Providers Care Hand Compositor Name Role Phone Mohsen Garcia MD Primary Care Provider Encounter Details Date Type Department Care Team (Late st Contact Info) Description 2016 [facility] Only [facility] ProviderGerardo MD [address] [place] [address] Social History Tobacco Use Types Packs/Day Years Used Date Smoking Tobacco: Former Cigarettes Q uit: 08/05/1964 Alcohol Use Standard Drinks/Week Comments Yes 0 (1 standard drink = 0.6 oz pur e alcohol) Sex and Gender Information Value Date Recorded Sex Assigned at Not on file 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
--- OUTSIDE RECORDS SUMMARY | 2025-02-02 02:16 | XMS_ITS | Encounter Summary ---
Author Organization [facility] Address [address] [facility] [address] [place] [id number] Care Team Providers Care Traffic Lieutenant Name Role Phone Mohsen Garcia MD Primary Care Provider Encounter Details Date Type Department Care Team (Late st Contact Info) Description 08/08/2016 Orders Only [facility] ProviderGerardo MD [address] [place] [address] Social History Tobacco Use Types Packs/Day Years Used Date Smoking Tobacco: Former Cigarettes Q uit: 08/05/1964 Alcohol Use Standard Drinks/Week Comments Yes 0 (1 standard drink = 0.6 oz pur e alcohol) Sex and Gender Information Value Date Recorded Sex Assigned at Not on file 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
--- OUTSIDE RECORDS SUMMARY | 2025-02-02 02:16 | XMS_ITS | Patient Health Record ---
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
--- OUTSIDE RECORDS SUMMARY | 2025-02-02 02:16 | XMS_ITS | Referral Summary ---
Author Organization [facility] [address] [place] [address] [address] [place] [address] Care Team Providers Care Director Of Marketing And Promotions Name Role Phone Mohsen Garcia MD Primary Care Provider Encounters Date Type Department Care Team Description 02/01/[address] 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 Gender Identity Male 04/13/2021 9:37 AM CDT [...] on file Medical Devices Implanted Type Area Information Systems Coordinator Device Identifier Shelf Expiration Date Model / Serial / Lot Pacemaker-2013 Implanted:01/15 by Hugo Thurman MD (Quantity not on file) Pacemaker Chest Medtronic SSS, PAT REVO MRI / [id number] / CHRONIC LEADS 07/2004 Insurance MEDICARE Message [employer] MEDICARE Message [employer] Care Teams Director Of Marketing And Promotions Relationship Specialty Start Date End Date Mohsen Garcia MD [address] [facility] [address] [place] [address] PCP - General 12/15/13
--- OUTSIDE RECORDS SUMMARY | 2025-02-02 02:16 | XMS_ITS | Clinical Summary ---
Author Organization [facility] Address [facility] [place] [address] Care Team Providers Care Mat Cutter Name Role Phone Mohsen Garcia MD Primary Care Provider [phone] Social History Tobacco Use Types Packs/Day Years [...] this topic Insurance [employer] MEDICARE Care Teams Mat Cutter Relationship Specialty Start Date End Date Mohsen Garcia MD [address] [place] [address] PCP - General FAMILY PRACTICE 02/21/22
--- OUTSIDE RECORDS SUMMARY | 2025-02-02 02:16 | XMS_ITS | Encounter Summary ---
Author Organization [facility] Address [address] [place] [address] Care Team Providers Care Clinical Scientist Name Role Phone Mohsen Garcia MD Primary Care Provider Encounter Details Date Type Department Care Team (Late st Contact Info) Description 02/01/2025 Telephone [facility] Medical Group Cardiology [address] [place] [address] Rey Grissom MD [address] 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 * Telephone Encounter - Cornelia Ashby RN - 02/01/2025 10:33 AM CDT Last EKG and device interrogation faxed to as requested. * Telephone Encounter - Jazzmine Dodson - 02/01/2025 10:24 AM CDT Ashwini oates/ [facility] called requesting the last interrogation for the pacemaker and last EKG results be faxed for the pts procedure tomorrow please advise thank you Contact: * Telephone Encounter - Cornelia Ashby RN - 02/01/2025 8:58 AM CDT Mychart message below from pt, pt also wanting to know if OK to hold Xarelto for his surgery and for how long. I called pt back, LM on VM advised pt that he should discuss Xarelto hold with surgeon also. Will forward to DK. Please advise if pt OK to proceed with appendectomy and if OK to hold Xarelto and for how long. Currently, I am scheduled for a Laparoscopic Appendectomy, Possible Open, on February 02 at [facility]. Please advise if any cardiology related tests are recommended prior to surgery, which can be delayed if necessary. * Telephone Encounter - Jazzmine Dodson - 02/01/2025 8:41 AM CDT Pt requesting a call back to discuss his rivaroxaban (Xarelto) 20 mg and if he needs to hold it forhis surgery tomorrow he also has some questions regarding if he had a stroke of anything please advise thank you Contact: documented in this encounter Plan of Treatment Not on file documented as of this encounter Visit Diagnoses Not on filedocumented in this encounter Care Teams Clinical Scientist Relationship Specialty Start Date End Date Mohsen Garcia MD [address] [facility] [address] [place] [phone] PCP - General 12/15/13 documented as of this encounter
--- OUTSIDE RECORDS SUMMARY | 2025-02-02 02:16 | XMS_ITS | Clinical Summary ---
Author Organization [facility] [address] [place] [address] Care Team Providers Care Event Planning Intern Name Role Phone Mohsen Garcia MD Primary [...] of cardiac pacemaker 02/13/2016 Overview (06/08/2024): Medtronic [place] Dual Pacemaker Dx; SSS, PAT. 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 Gender Identity Male 04/13/2021 9:37 AM CDT [...] history exists Medical Devices Implanted Type Area Pattern Wheel Maker Device Identifier Shelf Expiration Date Model / Serial / Lot Pacemaker-2013 Implanted:01/15 by Hugo Thurman MD (Quantity not on file) Pacemaker Chest Medtronic SSS, PAT REVO MRI / [id number] / CHRONIC LEADS 07/2004 Insurance MEDICARE [facility] Address: [facility] [address] [place] [address] [employer] MEDICARE FOR LIFE Care Teams Event Planning Intern Relationship Specialty Start Date End Date Mohsen Garcia MD [address] [place] [address] PCP - General 12/15/13
[2025-02-02] MEDS: ACETAMINOPHEN 500 MG TABLET 1000 MG PO (11:13)
[2025-02-02] MEDS: KETOROLAC 15 MG/ML VIAL (*BKC) IV PUSH (11:14)
[2025-02-02 11:25] LABS: Hematocrit 41.9 % (42.0-52.0); Hemoglobin 14.0 g/dL (14.0-18.0); Immature Granulocyte Percent A 0.2 % (0-0.5); Lymphocytes Absolute Auto 0.85 K/mm3 (0.9-3.2); Mean Corpuscular HGB Conc 33.4 g/dl (32-36); Mean Corpuscular Hemoglobin 32.0 pg (26-34); Mean Corpuscular Volume 95.7 fl (80-100); Nucleated Red Blood Cells Absolute Auto 0.000 K/mm3 (0.0-0.012); Nucleated Red Blood Cells Perc 0.0 % (0.0-0.2); Platelet Count Result 160 k/mm3 (150-375); Red Blood Count 4.38 M/mm3 (4.6-6.20); White Blood Count 5.0 K/mm3 (4.5-10.0)
--- NOTE | 2025-02-02 12:10 | P.PNAN_ITS ---
Anes - Initial Pre Proc Eval Procedure: Operation Date: 02/02/25 12:30 Proposed Procedures p Laparoscopic Appendectomy - Harshad Elaine DO Date/Time: 02/02/25 12:10 Surgeon: Harshad Elaine DO Pre Op Diagnosis: acute appendicitis with perforation and abscess Patient Data Age: 89 Gender: M Height: 1.78 m Weight: 65.7 kg Last Vital Signs Temp 36.6 C 02/02/25 11:15 Pulse 78 02/02/25 11:15 Resp 16 02/02/25 11:15 BP 147/80 H 02/02/25 11:15 Pulse Ox 99 02/02/25 11:15 O2 Del Method Room Air 02/02/25 11:15 Allergies Allergy/AdvReac Type Severity Reaction Status Date / Time No Known Allergies Allergy Verified 02/02/25 11:11 Home Medications ?Medication ?Instructions ?Recorded ?Confirmed ?Type pravastatin 40 mg tablet 20 mg PO QHS 06/09/19 02/02/25 History rivaroxaban 20 mg tablet (Xarelto) 20 mg PO QHS 06/09/19 02/02/25 History aspirin 81 mg capsule 81 mg PO EVERY OTHER DAY 07/31/23 02/02/25 History fluticasone propionate 50 2 spray intranasal DAILY PRN 07/08/24 02/02/25 Rx mcg/actuation nasal ALLERGIES #16 grams spray,suspension levothyroxine 50 mcg tablet See Rx Instructions .Route 11/23/24 02/02/25 Rx .COMPLEX #90 tabs allopurinol 100 mg tablet 200 mg (2 x 100 mg) PO DAILY #180 11/24/24 02/02/25 Rx tabs calcium carbonate 750 1 tablet PO HS 12/02/24 02/02/25 History mg-simethicone 250 mg chewable tablet (Phazyme Gas and Acid) finasteride 5 mg tablet 5 mg PO QHS 12/02/24 02/02/25 History tamsulosin 0.4 mg capsule (Flomax) 0.4 mg PO QHS 12/02/24 02/02/25 History lorazepam 0.5 mg tablet (Ativan) 0.5 mg PO .qhs PRN anxiety #90 tabs 12/31/24 02/02/25 Rx omeprazole 20 mg capsule,delayed 20 mg PO DAILY #90 caps 01/25/25 02/02/25 Rx release Laboratory Tests 02/02/25 10:52 WBC 5.0 K/mm3 (4.5-10.0) RBC 4.38 L M/mm3 (4.6-6.20) Hgb 14.0 D g/dL (14.0-18.0) Hct 41.9 L % (42.0-52.0) MCV 95.7 fl (80-100) MCH 32.0 pg (26-34) MCHC 33.4 g/dl (32-36) RDW 15.3 H % (11.5-14.5) Plt Count 160 D k/mm3 (150-375) MPV 11.9 H fl (7.4-10.4) Immature Gran % (Auto) 0.2 % (0-0.5) Neut % (Auto) 66.6 % (45.5-73.1) Lymph % (Auto) 17.0 L % (18.3-44.2) [place] % (Auto) 9.4 H % (2.6-8.5) Eos % (Auto) 6.2 H % (0-4.4) Baso % (Auto) 0.6 % (0.2-1.2) Lymph # (Auto) 0.85 L K/mm3 (0.9-3.2) [place] # (Auto) 0.5 K/mm3 (0.1-0.6) Eos # (Auto) 0.3 K/mm3 (0-0.3) Baso # (Auto) 0.0 K/mm3 (0.0-0.1) Abs Immat Gran (auto) 0.01 K/mm3 (0.00-0.031) Absolute Neuts (auto) 3.3 K/mm3 (1.3-6.7) Absolute Nucleated RBC 0.000 K/mm3 (0.0-0.012) Nucleated RBC % 0.0 % (0.0-0.2) Patient hx anesthesia problems: none Family hx anesthesia problems: none Results Review: All pre-operative results and documents have been reviewed as part of the pre- operative evaluation. [facility] Past Medical History Medical History Pacemaker SSS (sick sinus syndrome) Pulmonary fibrosis, unspecified CVA (cerebral vascular accident) Carotid stenosis, right Carotid duplex in 2023 - showed 50-69% stenosis right ICA, <50% in left ICA Anemia Elevated fecal calprotectin Heart failure Peripheral edema Hiatal hernia GERD with esophagitis BCC (basal cell carcinoma of skin) Surgical History Surgical History History of colonoscopy Last in November 2023 d/t previous episode of colitis, with findings of diverticulosis, polyps, and internal hemorrhoids History of pacemaker History of tonsillectomy History of Mohs micrographic surgery for skin cancer Family History Family History Mother Hypertension Cerebrovascular accident Social History Social History Social History: Smoking status: Never smoker Second hand tobacco smoke exposure: No Smoking end date: 08/05/1965 Alcohol intake: current Drinks per week: 1 Alcohol use details: SHOT A WEEK Substance use: never Substance use type: does not use Do You Feel Safe in your Home?: Yes Lack of Transportation: No Lack of Food: Never True Current Housing: I Have Housing Concerned About Future Housing: No Difficulty Paying Gas/Electric Bills: No Difficulty Paying for Meds: No Currently Unemployed: No Education: High School Diploma/GED Difficulty w/ Childcare or Family Care: No Living arrangements: with family Occupation/Education: retired Gender identity (if verbalized by the patient): Male Sexual Orientation (if Verbalized by the Patient): Straight or Heterosexual Spiritual care concerns: No Anes - Eval Final PreProcedure Day of Procedure 02/02/25 12:10 Patient weight: normal Heart: regular rate and rhythm Lungs: clear to auscultation Airway: Mallampati scale class II Neurological: alert and oriented Last oral intake: >/= 8 hours ASA classification: IV Emergent: no Anesthetic plan: proceed Anesthesia type and monitoring: general ETT and standard monitoring Results Review: All pre-operative results and documents have been reviewed as part of the pre-o perative evaluation. Informed Consent: The patient's anesthetic plan and its attendant risks and benefits were discussed with the patient/family/POA. Questions were solicited and answers provided to the satisfaction of the patient/family/POA.
--- NOTE | 2025-02-02 12:10 | WPDHPUPDATE1 ---
History and Physical Update Update Date/Time: 02/02/25 12:10 History and Physical has been reviewed, including an updated exam of the patient. There are NO changes in the patient's condition. Risks, benefits, and alternatives have been discussed and questions answered. Patient agrees to proceed with procedure.
[2025-02-02] MEDS: ceFAZolin 2 GM/D5W 50 ML 2 GM/50 ML BAG IVPB (12:18)
--- NOTE | 2025-02-02 12:39 | S_PTH ---
PATIENT: Marcial Santos LOC: [facility] U#:[id number] AGE/SX: 89/M ROOM: RE02/02/[address]: Harshad Elaine DO : 1935 BED: DIS: 02/03/2025 SPEC #: [id number] RECD: 02/03/25 07:25 STATUS: EMILIANO REQ #: [id number] MARTHA: 02/02/25 12:[address]: Harshad Elaine DEPT: [facility] Surgical RECD BY: Diana Covington ENTERED: 02/03/25 07:25 SP TYPE: Surgical OTHR DR: Mohsen Garcia MD Tissues: A - Appendix Procedures: Hematoxylin and Eosin Stain Gross and Microscopic Level 3
[2025-02-02] MEDS: BUPIVACAINE/EPINEPHRINE 0.5% 50 ML VIAL 30 ML INFILTRATE (12:54)
--- NOTE | 2025-02-02 13:18 | P.OP_ITS ---
Procedure Note - Detailed Date of Procedure 02/02/25 Pre-op Diagnosis acute appendicitis with perforation and abscess Post-op Diagnosis Same Procedure Performed Laparoscopic appendectomy Surgeon Harshad Elaine, DO Anesthesia General and Local (0.5% bupivicaine with epinephrine) Indications This is an 89-year-old man who presented for laparoscopic appendectomy. He has a prior history of admission to the hospital for acute appendicitis with perforation and abscess. The abscess was small and was unable to be accessed percutaneously under CT guidance, therefore he was initially treated with antibiotics and appeared to improve. He was then discharged home and a follow- up CT was obtained which showed near complete resolution of the abscess. Further discussions were made with the patient about continued observation verses proceeding with appendectomy. Patient wanted to proceed with appendectomy to eliminate the chance of this ever happening again. Decision was then made to proceed with laparoscopic appendectomy, possible open. Findings Laparoscopic appendectomy was performed. There were a few adhesions around the distal and of the appendix. The appendix was lying across the lower midline where the tip was lying right about near the midline. There was a portion of the omentum that was adherent to the distal tip of the appendix which came down with blunt dissection and laparoscopic scissors. There was also an area of the distal appendix that appeared adherent to the sigmoid mesocolon. This also came down with careful blunt dissection and laparoscopic scissors. There did not appear to be any evidence of a persistent abscess. The base of the appendix appeared healthy and viable. The appendix was removed and sent to the lab for pathology. Description of Procedure Procedure as well as risks, benefits, and alternatives were explained to the patient. The patient agreed to proceed. Written consent was obtained and placed in chart prior to procedure. The patient was brought back to surgical suite. He was placed supine on operating table. Time-out was done to confirm the patient and procedure. The patient was then intubated by the Anesthesia Department. His abdomen was prepped and draped in sterile fashion using chlorhexidine prep. A 5 mm incision was made in the left upper quadrant and a 5 mm Optiview trocar was advanced through the abdominal layers under direct vis ualization. Once inside the peritoneal cavity, carbon dioxide insufflation was used to create a pneumoperitoneum. The camera was inserted and the abdomen was inspected. No immediate abnormalities were identified. The patient was then placed in slight Trendelenburg position and rotated to the left. A 5 mm incision was made in the left lower quadrant and a 5 mm trocar was inserted under direct visualization. A 12 mm incision was made in the left lateral abdomen and a 12 mm trocar was inserted under direct visualization. The right lower quadrant was carefully inspected. The cecum was identified and then this was traced back to the appendix. The appendix was identified and grasped at the mesoappendix and lifted anteriorly. There were a couple omental adhesions to the tip of the appendix that were carefully taken down using blunt dissection and curved scissors. There was also an area where the distal appendix was adherent to the sigmoid mesocolon and this was carefully taken down using blunt dissection and scissors. Careful blunt dissection was then carried out at the base of the appendix through the mesoappendix using a Maryland grasper. An Endo-CIERA 45 mm blue load stapler was then advanced across the base of the appendix and clamped and fired. A white reload was then clamped across the mesoappendix and fired. This freed up our appendix completely. It was then placed in an EndoCatch bag and removed through the left lower quadrant port. The staple lines were then inspected. Hemostasis appeared adequate and the staple lines appeared secure. The pelvis was then carefully inspected and the remainder of the abdomen was carefully inspected. The patient was then flattened out in bed. One final inspection was made around the abdominal cavity and no other abnormalities were seen. The left lateral abdomen port was removed and a Johnie-Connie cone was used to approximate the fascia with an 0 Vicryl simple interrupted suture. The remaining ports were then removed under direct visualization. The camera was removed and the pneumoperitoneum was released. 0.5% bupivacaine with epinephrine was infiltrated locally around each of the incisions. The skin of the incisions was then approximated using 4-0 Monocryl subcuticular suture and Exofin glue was applied on top. The patient was then awakened from anesthesia, extubated, and transferred to Recovery. Estimated Blood Loss 5 Urine Output 300 Pathology Yes (Appendix) Complications No immediate complications Condition Stable Disposition Observation [facility] Billing Surgery - Charge Forward: Surgery Billing
[2025-02-02] MEDS: LACTATED RINGERS 1,000 ML 30 ML IV CONT ×2 (13:25)
--- NOTE | 2025-02-02 15:04 | ADMGEN ---
This patient, Marcial Santos, was admitted to [facility] Surg Room 300-01. Patient/family oriented to hospital policies and general routines including ID bracelet, bed and alarms, visiting hours, pain management, procedures, bathroom and other care routines, personal items, smoking policy, room service/diet, and visiting hours. Information on how to activate the Rapid Response Team has been discussed. Patient/Family are encouraged to report perceived risks to care and to ask questions if they do not understand what they are told or what they should do.
[2025-02-02] MEDS: LACTATED RINGERS 1,000 ML 100 ML IV CONT (15:37)
[2025-02-02] MEDS: ASPIRIN 81 MG ENTERIC TABLET PO (17:24)
[2025-02-02] MEDS: PRAVASTATIN SODIUM 20 MG TABLET PO (20:55)
[2025-02-02] MEDS: SIMETHICONE 125 MG CHEW TAB 250 MG PO (20:55)
[2025-02-02] MEDS: TAMSULOSIN HCL 0.4 MG CAPSULE PO (20:55)
[2025-02-02] MEDS: FINASTERIDE 5 MG TABLET PO (20:55)
[2025-02-02] MEDS: CALCIUM CARBONATE (TUMS) 500 MG (200 MG ELEMENTAL) 400 MG BY MOUTH (20:55)
[2025-02-03 00:43] VITALS: BP 136/81; PULSE 76; RESP 20; TEMP 36.6; O2SAT 100
[2025-02-03 04:43] VITALS: BP 114/68; PULSE 67; RESP 18; TEMP 36.4; O2SAT 98
[2025-02-03] MEDS: LEVOTHYROXINE SODIUM 50 MCG TABLET BY MOUTH (06:33)
[2025-02-03 08:00] VITALS: O2SAT 98
[2025-02-03 08:43] VITALS: BP 118/73; PULSE 68; RESP 14; TEMP 36.5; O2SAT 100
[2025-02-03] MEDS: ACETAMINOPHEN 500 MG TABLET PO (08:45)
[2025-02-03] MEDS: PANTOPRAZOLE 40 MG TABLET PO (08:45)
--- NOTE | 2025-02-03 09:34 | P.DS_ITS ---
DS: Admitting Diagnosis Discharge Date 02/03/2025 Admitting Diagnosis Acute appendicitis with perforation and abscess DS: Discharge Diagnosis Discharge Diagnosis (1) Acute appendicitis with perforation and peritoneal abscess: Code(s): K35.33 - Acute appendicitis with perforation, localized peritonitis, and gangrene, with abscess Status: Acute (2) Paroxysmal A-fib: Code(s): I48.0 - Paroxysmal atrial fibrillation Status: Chronic (3) Heart failure: Code(s): I50.9 - Heart failure, unspecified Status: Acute DS: Summary Hospital Course Reason for hospitalization: Acute appendicitis Hospital Course: This is an 89-year-old man who has a prior history of acute appendicitis and was hospitalized on 12/02/2024 for perforated appendicitis with abscess. He was treated with IV antibiotics and was discharged home with oral antibiotics. A follow-up CT showed near complete resolution the abscess. He was concerned about possibilities of recurrent appendicitis therefore discussions were made with the patient about observation versus surgical intervention and decision was made to proceed with laparoscopic appendectomy, possible open. He underwent laparoscopic appendectomy on 02/02/2025. Surgery was uncomplicated and he was placed in outpatient extended recovery postoperatively. His pain was adequately controlled postop and his diet was advanced as tolerated. On postop day 1 he was feeling well and had minimal pain. He was tolerating his diet and remained hemodynamically stable. He was discharged on 02/03/2025. Status at Discharge Functional status at discharge: uses cane/walker Overall status at discharge: patient is progressing back to baseline Time Spent with Patient Time attestation: Total time spent providing and/or coordinating discharge services: Time spent: Less than 30 minutes Exam Const: General: comfortable and no acute distress Resp: Effort & Inspection: normal respiratory effort Auscultation: clear to auscultation bilaterally Cardio: Rhythm: abnormal rhythm irregularly irregular Heart sounds: S1 normal heart sound present and S2 normal heart sound present GI: Inspection: non-distended and incision (Intact with glue) GI Palp: Yes Soft to palpation, No Tenderness to palpation present (GI), No Guarding due to palpation present (GI) and No Rebound tenderness present Auscultation: normal bowel sounds DS: Data Data Completed and Pending Pending studies at discharge: Pending at discharge 02/02/25 12:39 Surgical [PTH] Routine Labs on day of discharge: Labs from last 24 hours 02/02/25 10:52 WBC 5.0 RBC 4.38 L Hgb 14.0 D Hct 41.9 L MCV 95.7 MCH 32.0 MCHC 33.4 RDW 15.3 H Plt Count 160 D MPV 11.9 H Immature Gran % (Auto) 0.2 Neut % (Auto) 66.6 Lymph % (Auto) 17.0 L [place] % (Auto) 9.4 H Eos % (Auto) 6.2 H Baso % (Auto) 0.6 Lymph # (Auto) 0.85 L [place] # (Auto) 0.5 Eos # (Auto) 0.3 Baso # (Auto) 0.0 Abs Immat Gran (auto) 0.01 Absolute Neuts (auto) 3.3 Absolute Nucleated RBC 0.000 Nucleated RBC % 0.0 Discharge Plan Discharge Patient Disposition: Home Discharge Instructions: DISCHARGE INSTRUCTION SHEET FOR HERNIA, GALLBLADDER AND APPENDIX SURGERIES DR. SCHAEFER PATIENT TO TAKE HOME 1. May shower, no soaking in bath x 2weeks. 2. Call office for: * Wound increasingly painful or bleeding * Vomiting * Fever of greater than 101 degrees 3. If no bowel movement for three days, take 1 oz. (30 ml) Milk of Magnesia or MiraLax 17g 1 to 2 times daily. 4. No heavy lifting > 10-15 pounds x 2 weeks for laparoscopic cholecystectomy or appendectomy. 5. No driving for 3 days or while taking narcotic pain medications. 6. Ice to surgical site for 48 hours (30 min on, then 30 min off). 7. Up walking 10-30 minutes three times per day. 8. Resume previous home medications. 9. Follow-up 10-14 days in office for wound check or as previously scheduled. [phone]) 10. Take Tylenol 500-1000 mg every 6 hours as needed. 11. NUTRITION: Start out by drinking fluids and increase your diet as tolerated. If you experience nausea, try dry toast, crackers, and 7-UP. If nausea or vomiting persists, contact your surgeon?s office. Revised December 2018 Patient Instructions: Rivaroxaban (By mouth) Patient Language: Algerian Follow-up/Referrals: Harshad Schaefer DO [Physician] - 02/19/25 9:45 am Discharge Medications: Continued pravastatin 40 mg tablet 20 mg PO QHS Phazyme Gas and Acid 750-250 mg tablet,chewable 1 tablet PO HS tamsulosin [Flomax] 0.4 mg capsule 0.4 mg PO QHS finasteride 5 mg tablet 5 mg PO QHS aspirin 81 mg Capsule 81 mg PO EVERY OTHER DAY Patient Comments: every other day last taken 12/01/24 fluticasone propionate 50 mcg/actuation spray,suspension 2 spray NASAL DAILY PRN (Reason: ALLERGIES) Qty: 16 11RF levothyroxine 50 mcg tablet See Rx Instructions .ROUTE .COMPLEX Qty: 90 2RF Dose Instruction: TAKE 1 TABLET DAILY Rx Instructions: TAKE 1 TABLET DAILY allopurinol 100 mg tablet 200 mg PO DAILY Qty: 180 2RF lorazepam [Ativan] 0.5 mg tablet 0.5 mg PO .qhs PRN (Reason: anxiety) Qty: 90 0RF omeprazole 20 mg capsule,delayed release(DR/EC) 20 mg PO DAILY Qty: 90 3RF Held Xarelto 20 mg tablet 20 mg PO QHS Hold Instructions: Resume on 02/04/25.
== END 2025-02-03 11:35 | disposition home or self-care (01) ==
LOC: ANHSURGERY 10:28 → ANH3MEDSUR 15:00
PROVIDERS: PCP Family Medicine; Visit Provider Surgery
PROC: 0DTJ4ZZ Resection of Appendix, Percutaneous Endoscopic Approach (ICD-10-PCS; CPT 44970; principal; 2025-02-02 12:30)
DX: K38.8 Other specified diseases of appendix (principal); I50.9 Heart failure, unspecified; I48.0 Paroxysmal atrial fibrillation; Z79.01 Long term (current) use of anticoagulants; Z95.0 Presence of cardiac pacemaker
CPT/HCPCS: 44970; 36415; 85025; 88304; A9270; J0690; J1885; J2003; J2371; J2405; J2704; J3010; J7030; J7120

== ENCOUNTER 2025-04-18 09:30 | Emergency (ER) | payer MEDICARE, OTHER, SELFPAY ==
--- NOTE | ~2025-04-18 | XR_ITS ---
EXAMINATION: XR chest 2V, 04/18/2025 10:30 CDT HISTORY: cob COMPARISON: No comparisons available. Technique: 2 views obtained. Findings: COPD changes. Small left lower lobe infiltrate. No pneumothorax. Heart is normal size. Mediastinal and hilar contours are within normal limits. Bony thorax no acute abnormality. Left pacemaker. Impression: Early left lower lobe pneumonia Reviewed, dictated and finalized at location A. Impression: Early left lower lobe pneumonia
--- NOTE | 2025-04-18 09:32 | ECG_ITS ---
Test Date: 2025-04-18 09:39:35 Measurements Intervals [place] Rate: 90 P: 0 SD: 0 QRS: -29 QRSD: 74 T: 10 QT: 347 QTc: 425 Interpretive Statements ATRIAL FIBRILLATION BORDERLINE LEFT AXIS DEVIATION [QRS AXIS < -20] ABNORMAL RHYTHM ECG No previous ECG available for comparison Electronically Signed On 04-18-2025 09:50:45 CDT by Shahid Valdovinos M.D.
--- OUTSIDE RECORDS SUMMARY | 2025-04-18 09:32 | XMS_ITS | Encounter Summary ---
Author Organization [facility] Healthcare Address [address] [place] [address] Care Team Providers Care Geneticist Name Role Phone Mohsen Garcia MD Primary Care Provider Encounter Details Date Type Department Care Team (Late st Contact Info) Description 04/09/2018 [place] Only [facility] [place] [address] [place] [id number] Scanning, Provider Social History Tobacco Use Types Packs/Day Years Used Date Smoking Tobacco: Former Smokeless Tobacco: Never Alcohol Use Standard Drinks/Week Comments Yes 0 (1 standard drink = 0.6 oz pur e alcohol) Sex and Gender Information Value Date Recorded Sex Assigned at Not on file 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 Gender Identity Male 04/13/2021 9:37 AM CDT Sexual Orientation Not on file documented as of this encounter Plan of Treatment Not on file documented as of this encounter Procedures Procedure Name Priority Date/Time Associated Diagnosis Comments SCAN - RADIOLOGY/IMAGING 04/09/2018 documented in this encounter Results * SCAN - RADIOLOGY/IMAGING (04/09/2018) Anatomical Region Laterality Modality Other us Provider Scanning Final Result documented in this encounter Visit Diagnoses Not on filedocumented in this encounter Care Teams Geneticist Relationship Specialty Start Date End Date Mohsen Garcia MD [address] [place] [address] PCP - General 12/15/13 documented as of this encounter
--- OUTSIDE RECORDS SUMMARY | 2025-04-18 09:32 | XMS_ITS | Encounter Summary ---
Author Organization [facility] Medical Group Address [address] [facility] [address] [place] [address] Care Team Providers Care Analog Device Designer Name Role Phone Mohsen Garcia MD Primary Care Provider Encounter Details Date Type Department Care Team (Late st Contact Info) Description 2016 Orders Only [facility] ProviderGerardo MD [address] [place] [id number] Social History Tobacco Use Types Packs/Day Years Used Date Smoking Tobacco: Former Cigarettes Q uit: 08/05/1964 Alcohol Use Standard Drinks/Week Comments Yes 0 (1 standard drink = 0.6 oz pur e alcohol) Sex and Gender Information Value Date Recorded Sex Assigned at Not on file 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
--- OUTSIDE RECORDS SUMMARY | 2025-04-18 09:32 | XMS_ITS | Encounter Summary ---
Author Organization [facility] Healthcare Address [address] [place] [address] Care Team Providers Care Milk Hauler Name Role Phone Mohsen Garcia MD Primary Care Provider Encounter Details Date Type Department Care Team (Late st Contact Info) Description 09/24/2023 Orders Only [facility] [place] Management [address] [place] [address] Scanning, Provider Social History Tobacco Use Types Packs/Day Years Used Date Smoking Tobacco: Former Smokeless Tobacco: Never Alcohol Use Standard Drinks/Week Comments Yes 0 (1 standard drink = 0.6 oz pur e alcohol) Sex and Gender Information Value Date Recorded Sex Assigned at Not on file 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 Gender Identity Male 04/13/2021 9:37 AM CDT Sexual Orientation Not on file documented as of this encounter Plan of Treatment Not on file documented as of this encounter Procedures Procedure Name Priority Date/Time Associated Diagnosis Comments SCAN - RADIOLOGY/IMAGING 09/24/2023 documented in this encounter Results * SCAN - RADIOLOGY/IMAGING (09/24/2023) Anatomical Region Laterality Modality Other us Provider Scanning Final Result documented in this encounter Visit Diagnoses Not on filedocumented in this encounter Care Teams Milk Hauler Relationship Specialty Start Date End Date Mohsen Garcia MD [address] [place] [address] PCP - General 12/15/13 documented as of this encounter
--- OUTSIDE RECORDS SUMMARY | 2025-04-18 09:32 | XMS_ITS | Clinical Summary ---
Author Organization [facility] Address [facility] [place] [address] Care Team Providers Care Nuclear Plant Equipment Operator Name Role Phone Mohsen Garcia MD Primary Care Provider [phone] Social History Tobacco Use Types Packs/Day Years [...] PCV) 05/15/2018 05/15/2017 COVID-19 Vaccine (2 - 2024-2 6 season) 2025 11/23/2021 Meningococcal B Vaccine Aged Out No l onger eligible based on patient's age to complete this topic Meningococcal Vaccine Aged Out No david veronica eligible based on patient's age to complete this topic RSV Immunizations Under 20 Months Aged Out No longer eligible based on patient's age to complete this topic Insurance [employer] MEDICARE Care Teams Nuclear Plant Equipment Operator Relationship Specialty Start Date End Date Mohsen Garcia MD [address] [place] [address] PCP - General FAMILY PRACTICE 02/21/22
--- OUTSIDE RECORDS SUMMARY | 2025-04-18 09:32 | XMS_ITS | Clinical Summary ---
Author Organization [facility] [place] [address] [place] [address] Care Team Providers Care Studio Associate Name Role Phone Mohsen Garcia MD Primary Care Provider Allergies No known active allergies Medications multivitamin tablet tablet take 1 tablet by oral route every day with food 0 0 02/28/20 13 Active LORazepam (ATIVAN) 0.5 mg tablet take 0.5 tablet by oral route at night time 0 0 01/07/20 14 Active allopurinol (ZYLOPRIM) 100 mg tablet take 2 tabs ORAL route every day 0 0 12/14/19 15 Active tamsulosin (FLOMAX) 0.4 mg capsule,extend ed release 24hr take 1 capsule by oral route every day 1/2 hour following the same meal each day 0 0 12/14/19 15 Active finasteride (PROSCAR) 5 mg tablet take 1 tablet by oral route every day 0 0 02/13/20 16 Active levothyroxine (SYNTHROID, LEVOTHROID) 50 mcg tablet take 1 tablet by oral route every day 0 0 02/13/20 16 Active fluticasone (FLONASE) 50 mcg/actuation nasal spray Administer 1 spray into each nostril daily Active omeprazole (PriLOSEC) 40 mg capsule Take 1 capsule (40 mg total) by mouth 2 (two) times a day Active diclofenac sodium (VOLTAREN) 1 % gel Apply topically Active aspirin 81 mg enteric coated tablet Take 1 tablet (81 mg total) by mouth every other day Active Xarelto 20 mg tablet TAKE 1 TABLET DAILY 90 tablet 3 02/25/20 25 Active pravastatin (PRAVACHOL) 20 mg tablet TAKE 1 TABLET BY MOUTH EVERY DAY 90 tablet 2 04/02/20 25 Active pravastatin (PRAVACHOL) 20 mg tablet Take 1 tablet (20 mg total) by mouth daily 90 tablet 2 07/06/20 24 025 Discontinued Active Problems Problem Noted Date Diagnosed Date [...] Encounters Date Type Department Care Team Description 03/02/2025 8:15 AM CDT Ancillary Procedure [place] [address] [place] [phone] Dyspnea on exertion 03/02/2025 Results Follow-Up [place] [address] [place] [phone] Cristina Penny NP Transthoracic Echo (TTE) Complete W Doppler/CF 02/16/2025 8:00 AM CDT Office Visit [place] [address] [place] [phone] Cristina Penny NP Dyspnea on exertion (Primary Dx); Nonrheumatic mitral valve regurgitation; Sick sinus syndrome (HCC); Presence of cardiac pacemaker; Paroxysmal atrial fibrillation (HCC); Chronic anticoagulation; Carotid stenosis, right; History of TIA (transient ischemic attack) 02/01/2025 Telephone [place] [address] [place] [phone] Rey Grissom MD 01/26/2025 7:00 AM CDT Ancillary Procedure [facility] Cardiology [address] [place] [address] [place] [phone] Presence of cardiac pacemaker (Primary Dx); NICM (nonischemic cardiomyopathy) (HCC); Sick sinus syndrome (HCC); Paroxysmal atrial fibrillation (HCC) 01/22/2025 Telephone [place] [address] [place] [phone] Sanjana James MA from Last 3 Months Surgical History Surgery [...] on file 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 Gender Identity Male 04/13/2021 9:37 AM CDT Sexual Orientation Not on file Obstetrics History Last Filed Vital Signs Vital Sign Reading Time Taken Comments Blood Pressure 108/66 02/16/2025 7:49 AM CDT Pulse 66 02/16/2025 7:49 AM CDT Temperature 36.3 C (97.4 F) 04/14/2019 1:05 PM CDT Respiratory Rate 18 04/14/2019 1:05 PM CDT Oxygen Saturation 99% 02/16/2025 7:49 AM CDT Inhaled Oxygen Concentration - - Weight 65.7 kg (144 lb 14.4 oz) 02/16/2025 7:49 AM CDT Height 177.8 cm (5' 10) 02/16/2025 7:49 AM CDT Body Mass Index 20.79 02/16/2025 7:49 AM CDT Plan of Treatment Health Maintenance Due Date Last Done Comments Depression Screening 1935 Fall Risk Assessment 1935 DTaP/Tdap/Td Vaccine (1 - Tdap) 11/13/1946 Hepatitis B Screening 11/13/1953 Zoster Vaccine (1 of 2) 11/13/1985 Well Visit 65+ 11/13/2000 Pneumococcal vaccine 65+ (2 of 2 - PCV) 05/15/2018 05/15/2017 Influenza Vaccine (#1) 2025 8, 05/15/2017, 05/02/2016, Additional history exists Medical Devices Implanted Type Area Industrial Production Manager Device Identifier Shelf Expiration Date Model / Serial / Lot Pacemaker-2013 Implanted:01/15 by Hugo Thurman MD (Quantity not on file) Pacemaker Chest Medtronic SSS, PAT REVO MRI / [id number] / CHRONIC LEADS 07/2004 Procedures Procedure Name Priority Date/Time Associated Diagnosis Comments TRANSTHORACIC ECHO (TTE) COMPLETE W DOPPLER/CF WO CONTRAST Routine 03/02/2025 8:52 AM CDT Dyspnea on exertion DEVICE CHECK - REMOTE Routine 02/02/2025 4:24 PM CDT NICM (nonischemic cardiomyopathy) (HCC) Sick sinus syndrome (HCC) Paroxysmal atrial fibrillation (HCC) from Last 3 Months Results * TRANSTHORACIC ECHO (TTE) COMPLETE W DOPPLER/CF WO CONTRAST (03/02/2025 8:52 AM CDT) EF Mod BP 60 % CONS SCIMAGE Anatomical Region Laterality Modality Ultrasound 03/02/2025 8:08 AM CDT Narrative 03/02/2025 12:08 PM CDT [facility] [address] [facility] [address], [place] [address] [address] [facility] [address], [place] [address] P:[phone] P:[phone] Echocardiographic Report Patient Name: EDGARDO BENÍTEZ T : 1935 Study Date: 03/02/2025 8:08:47 AM Gender: M Recording Studio Setup Worker: Genoveva Beck)([place]), [facility] Location: [facility] Provider: CRISTINA PENNY Height(Cm): 178 BSA: 1.8 Weight(Kg): 65.3 Heart Rate: 73 BP: 108 / 66 Quality: Good Order Provider: CRISTINA PENNY PROCEDURES: Echocardiographic Report: Transthoracic echocardiogram with complete 2D, M-Mode, and color Doppler examination. With Strain Analysis. INDICATIONS: R06.09 Other forms of dyspnea. MEASUREMENTS: 2D/MM Value Range Doppler Value Range EF Mod BP 60 % [ 52 - 72 ] KAYLENE Vmax 1.37 cm2 [ 2.00 - 4.00 ] LV GLS -14.81 % AV Mean PG 9 mmHg LVIDd 2D 3.60 cm [ 4.20 - 5.80 ] AV Peak Kemal 1.89 m/s [ 1.00 - 1.70 ] LVIDs 2D 2.51 cm [ 2.50 - 4.00 ] AV Peak PG 14 mmHg LVPWd 2D 1.07 cm [ 0.60 - 1.00 ] AV VTI 44.91 cm IVSd 2D 1.11 cm [ 0.60 - 1.00 ] LVOT Diam 1.97 cm [ 1.70 - 2.10 ] AoR Diam 2D 3.18 cm [ 3.10 - 3.70 ] LVOT Peak Kemal 0.85 m/s [ 0.70 - 1.10 ] LA Volume 49.98 ml [ 18.00 - 58.00 ] LVOT VTI 20.56 cm LA Volume Index 28 cc/m2 [ 16 - 28 ] PV Peak Kemal 0.89 m/s [ 0.40 - 0.80 ] RA Volume 27.27 ml TR Peak Kemal 2.62 m/s [ 1.00 - 2.80 ] TR Peak PG 28 mmHg RV S` 11.17 mmHg Tapse 2.02 cm [ 1.71 - 5.00 ] 2D/MM Value Range Doppler Value Range - FINDINGS: Interpretation Site: Exam was interpreted at [facility]. Left Ventricle: Ejection fraction is measured at 60 %. Global Longitudinal Strain is -15 %. The left ventricle is normal in size and systolic function. The left ventricular ejection fraction is visually estimated to be 60-65%. Right Ventricle: Normal right ventricular size. Normal right ventricular systolic function. Left Atrium: The left atrium is normal in size. Right Atrium: The right atrium is normal in size. Atrial Septum: The atrial septum is not well visualized. Mitral Valve: The mitral valve leaflets are sclerotic and there is severe annular calcification. There is no mitral stenosis. There is mild mitral regurgitation. Aortic Valve: The aortic valve is trileaflet and calcified. There is mild aortic stenosis. Tricuspid Valve: The tricuspid valve is not well visualized. There is mild tricuspid regurgitation. Pulmonic Valve: The pulmonic valve is not well visualized. There is color Doppler evidence of mild pulmonic valve regurgitation. Pericardium: Normal pericardium with no significant pericardial effusion. Aorta: Sinus of Valsalva 3.2 cm. IVC: The IVC is not well visualized. CONCLUSIONS: Ejection fraction is measured at 60 %. Global Longitudinal Strain is -15 %. The left ventricle is normal in size and systolic function. The left ventricular ejection fraction is visually estimated to be 60-65%. The mitral valve leaflets are sclerotic and there is severe annular calcification. There is no mitral stenosis. There is mild mitral regurgitation. The aortic valve is trileaflet and calcified. There is mild aortic stenosis. Electronically Signed By: Dr. Anmol Francisco 03/02/2025 12:08:27 PM CDT Procedure Note Anmol Francisco MD - 03/02/2025 [facility] [address] [facility] [address], [place] [address] [address] [facility] [address], [place] [address] P:[phone] P:[phone] Echocardiographic Report Patient Name: EDGARDO BENÍTEZ T : 1935 Study Date: 03/02/2025 8:08:47 AM Gender: M Recording Studio Setup Worker: Genoveva Pineda (Rachana)([place]), [facility] Location: [facility] Provider: CRISTINA PENNY Height(Cm): 178 BSA: 1.8 Weight(Kg): 65.3 Heart Rate: 73 BP: 108 / 66 Quality: Good Order Provider: CRISTINA PENNY PROCEDURES: Echocardiographic Report: Transthoracic echocardiogram with complete 2D, M-Mode, and color Dopplerexamination. With Strain Analysis. INDICATIONS: R06.09 Other forms of dyspnea. MEASUREMENTS: 2D/MM Value Range Doppler ValueRange EF Mod BP 60 % [ 52 - 72 ] KAYLENE Vmax 1.37cm2 [ 2.00 - 4.00 ] LV GLS -14.81 % AV Mean PG 9mmHg LVIDd 2D 3.60 cm [ 4.20 - 5.80 ] AV Peak Kemal 1.89m/s [ 1.00 - 1.70 ] LVIDs 2D 2.51 cm [ 2.50 - 4.00 ] AV Peak PG 14mmHg LVPWd 2D 1.07 cm [ 0.60 - 1.00 ] AV VTI 44.91cm IVSd 2D 1.11 cm [ 0.60 - 1.00 ] LVOT Diam 1.97cm [ 1.70 - 2.10 ] AoR Diam 2D 3.18 cm [ 3.10 - 3.70 ] LVOT Peak Kemal 0.85m/s [ 0.70 - 1.10 ] LA Volume 49.98 ml [ 18.00 - 58.00 ] LVOT VTI 20.56cm LA Volume Index 28 cc/m2 [ 16 - 28 ] PV Peak Kemal 0.89m/s [ 0.40 - 0.80 ] RA Volume 27.27 ml TR Peak Kemal 2.62m/s [ 1.00 - 2.80 ] TR Peak PG 28 mmHg RV S` 11.17 mmHg Tapse 2.02 cm [ 1.71 - 5.00 ] 2D/MM Value Range Doppler ValueRange - FINDINGS: Interpretation Site: Exam was interpreted at [facility]. Left Ventricle: Ejection fraction is measured at 60 %. Global Longitudinal Strain is -15%. The left ventricle is normal in size and systolic function. The left ventricularejection fraction is visually estimated to be 60-65%. Right Ventricle: Normal right ventricular size. Normal right ventricular systolicfunction. Left Atrium: The left atrium is normal in size. Right Atrium: The right atrium is normal in size. Atrial Septum: The atrial septum is not well visualized. Mitral Valve: The mitral valve leaflets are sclerotic and there is severe annularcalcification. There is no mitral stenosis. There is mild mitral regurgitation. Aortic Valve: The aortic valve is trileaflet and calcified. There is mild aorticstenosis. Tricuspid Valve: The tricuspid valve is not well visualized. There is mild tricuspidregurgitation. Pulmonic Valve: The pulmonic valve is not well visualized. There is color Doppler evidenceof mild pulmonic valve regurgitation. Pericardium: Normal pericardium with no significant pericardial effusion. Aorta: Sinus of Valsalva 3.2 cm. IVC: The IVC is not well visualized. CONCLUSIONS: Ejection fraction is measured at 60 %. Global Longitudinal Strain is -15%. The left ventricle is normal in size and systolic function. The left ventricularejection fraction is visually estimated to be 60-65%. The mitral valve leaflets are sclerotic and there is severe annularcalcification. There is no mitral stenosis. There is mild mitral regurgitation. The aortic valve is trileaflet and calcified. There is mild aorticstenosis. Electronically Signed By: Dr. Anmol Francisco 03/02/2025 12:08:27 PM CDT Cristina Penny NP CV ECHO PROCEDURES Final Result * DEVICE CHECK - REMOTE (02/02/2025 4:24 PM CDT) Anatomical Region Laterality Modality Other Narrative 03/11/2025 11:59 AM CDT Medtronic Dual Pacemaker Dx; SSS, PAT. DOI 06/05/24, chronic leads 07/21/2004. [employer] remote home monitor Q3 mo, Office pacer checks q1 yr. Routine AAIR <> DDDR Pacemaker Remote. Transmission attached. Battery status: 3.15 V , 13.1 years remaining battery life to JOE. Stable lead impedances, pacing and sensing thresholds. Presenting rhythm: /VS AP-24.3%, FINANCIAL SALES REPRESENTATIVE-< 0.1% 3 AT/AF episodes noted, longest episode was 5 hours and 39 minutes in duration, IEGM demonstrates AFib. AF [place] 0.5%. 4 Ventricular high rate episodes detected, IEGM demonstrates SVT with the longest episode lasting 27 seconds. Medications: Xarelto 20 mg, ASA 81 mg See scanned report. Office pacemaker follow up: 11/03/25 [facility] remote f/u 05/05/25. Iam Comer, LOVELY Rey Grissom MD CV CARDIAC SERVICES PROCEDURES F inal Result from Last 3 Months Insurance MEDICARE [employer] MEDICARE [employer] Care Teams Studio Associate Relationship Specialty Start Date End Date Mohsen Garcia MD [address] [facility] [address] [place] [address] PCP - General 12/15/13
--- OUTSIDE RECORDS SUMMARY | 2025-04-18 09:32 | XMS_ITS | Encounter Summary ---
Author Organization [facility] Medical Group Address [address] [facility] [address] [place] [id number] Care Team Providers Care Microstrategy Developer Name Role Phone Mohsen Garcia MD Primary Care Provider Encounter Details Date Type Department Care Team (Late st Contact Info) Description 08/08/2016 Orders Only [facility] ProviderGerardo MD [address] [place] [id number] Social History Tobacco Use Types Packs/Day Years Used Date Smoking Tobacco: Former Cigarettes Q uit: 08/05/1964 Alcohol Use Standard Drinks/Week Comments Yes 0 (1 standard drink = 0.6 oz pur e alcohol) Sex and Gender Information Value Date Recorded Sex Assigned at Not on file 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
--- OUTSIDE RECORDS SUMMARY | 2025-04-18 09:32 | XMS_ITS | Encounter Summary ---
Author Organization [facility] Healthcare Address [address] [place] [address] Care Team Providers Care Recreational Programs Director Name Role Phone Mohsen Garcia MD Primary Care Provider Encounter Details Date Type Department Care Team (Late st Contact Info) Description 10/02/2023 Orders Only [facility] Information Management [address] [place] [id number] Scanning, Provider Social History Tobacco Use Types Packs/Day Years Used Date Smoking Tobacco: Former Smokeless Tobacco: Never Alcohol Use Standard Drinks/Week Comments Yes 0 (1 standard drink = 0.6 oz pur e alcohol) Sex and Gender Information Value Date Recorded Sex Assigned at Not on file 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 Gender Identity Male 04/13/2021 9:37 AM CDT Sexual Orientation Not on file documented as of this encounter Plan of Treatment Not on file documented as of this encounter Procedures Procedure Name Priority Date/Time Associated Diagnosis Comments SCAN - LABS 10/02/2023 documented in this encounter Results * SCAN - LABS (10/02/2023) us Provider Scanning Final Result documented in this encounter Visit Diagnoses Not on filedocumented in this encounter Care Teams Recreational Programs Director Relationship Specialty Start Date End Date Mohsen Garcia MD [address] [place] [address] PCP - General 12/15/13 documented as of this encounter
--- OUTSIDE RECORDS SUMMARY | 2025-04-18 09:32 | XMS_ITS | Patient Health Record ---
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
[2025-04-18 09:47] VITALS: BP 108/68; PULSE 102; RESP 19; TEMP 36.7; O2SAT 100
[2025-04-18 10:02] LABS: Hematocrit 39.5 % (42.0-52.0); Hemoglobin 13.3 g/dL (14.0-18.0); Immature Granulocyte Percent A 0.0 % (0-0.5); Lymphocytes Absolute Auto 0.83 K/mm3 (0.9-3.2); Mean Corpuscular HGB Conc 33.7 g/dl (32-36); Mean Corpuscular Hemoglobin 32.4 pg (26-34); Mean Corpuscular Volume 96.1 fl (80-100); Nucleated Red Blood Cells Absolute Auto 0.000 K/mm3 (0.0-0.012); Nucleated Red Blood Cells Perc 0.0 % (0.0-0.2); Platelet Count Result 170 k/mm3 (150-375); Red Blood Count 4.11 M/mm3 (4.6-6.20); White Blood Count 4.5 K/mm3 (4.5-10.0)
[2025-04-18 10:19] LABS: Alanine Aminotransferase 20 U/L (6-50); Albumin Level 3.5 g/dL (3.5-5.1); Alkaline Phosphatase 110 U/L (38-126); Anion Gap 6 mmol/L (4-12); Aspartate Amino Transferase 32 U/L (17-59); Bilirubin,Total 0.7 mg/dL (0.2-1.3); Blood Urea Nitrogen 20 mg/dL (9-20); Calcium 8.5 mg/dL (8.4-10.2); Carbon Dioxide 22 mmol/L (22-30); Chloride 103 mmol/L (98-107); Estimated CRCL calculation 43 ml/min; Estimated Glomerular Filt Rate > 60; Glucose 179 mg/dL (65-110); Potassium 4.3 mmol/L (3.4-5.0); Sodium 131 mmol/L (137-145); Total Protein 6.7 g/dL (6.3-8.2)
[2025-04-18 10:59] VITALS: BP 112/76; PULSE 78; RESP 16; O2SAT 100
[2025-04-18 11:00] VITALS: PULSE 87; O2SAT 100
[2025-04-18 11:02] VITALS: BP 121/83; PULSE 86; RESP 16; O2SAT 100
--- NOTE | 2025-04-18 11:29 | ED.GENADULT ---
HPI - General Adult General Chief complaint: Shortness of Breath/Dyspnea Stated complaint: afib Time Seen by Provider: 04/18/25 10:50 History of Present Illness HPI narrative: Patient is an 89-year-old male who presents to the ER with an irregular heartbeat. He has history of paroxysmal atrial fibrillation. He also has a pacemaker. He has no chest pain. Does have some mild dyspnea with exertion. He continues to be anticoagulated with Xarelto. No fevers or chills or sweats. No dizziness. Symptoms have been ongoing for 2 days. Patient is on no rate control medications. No additional concerns. Related Data Home Medications ?Medication ?Instructions ?Recorded ?Confirmed ?Last Taken ?Type pravastatin 40 mg tablet 20 mg PO QHS 06/09/19 02/19/25 02/01/25 History rivaroxaban 20 mg tablet (Xarelto) 20 mg PO QHS 06/09/19 02/19/25 01/29/25 History Held on 02/03/25. Instructions: Resume on 02/04/25. aspirin 81 mg capsule 81 mg PO EVERY OTHER DAY 07/31/23 02/19/25 01/31/25 History calcium carbonate 750 1 tablet PO HS 12/02/24 02/19/25 02/01/25 History mg-simethicone 250 mg chewable tablet (Phazyme Gas and Acid) finasteride 5 mg tablet 5 mg PO QHS 12/02/24 02/19/25 02/01/25 History tamsulosin 0.4 mg capsule (Flomax) 0.4 mg PO QHS 12/02/24 02/19/25 02/01/25 History Allergies Allergy/AdvReac Type Severity Reaction Status Date / Time No Known Allergies Allergy Verified 02/19/25 09:34 Review of Systems Review of Systems: All systems reviewed & are unremarkable except as noted in HPI and below Constitutional: Constitutional: Reports no additional constitutional complaints Cardiovascular: Cardiovascular: Reports no additional cardiovascular complaints Respiratory: Respiratory: Reports no additional respiratory complaints Gastrointestinal: Gastrointestinal: Reports no additional gastrointestinal complaints [facility] Past Medical History Medical History Pacemaker SSS (sick sinus syndrome) Pulmonary fibrosis, unspecified CVA (cerebral vascular accident) Carotid stenosis, right Carotid duplex in 2023 - showed 50-69% stenosis right ICA, <50% in left ICA Anemia Elevated fecal calprotectin Heart failure Peripheral edema Hiatal hernia GERD with esophagitis BCC (basal cell carcinoma of skin) Surgical History Surgical History (Updated 02/19/25 @ 09:36 by Janey Pickett CMA) Hx of appendectomy 02/02/25 Laparoscopic appendectomy History of colonoscopy Last in November 2023 d/t previous episode of colitis, with findings of diverticulosis, polyps, and internal hemorrhoids History of pacemaker History of tonsillectomy History of Mohs micrographic surgery for skin cancer Family History Family History Mother Hypertension Cerebrovascular accident Social History Social History Social History: Smoking status: Never smoker Second hand tobacco smoke exposure: No Alcohol intake: never Drinks per week: 1 Alcohol use details: SHOT A WEEK Substance use: never Substance use type: does not use Do You Feel Safe in your Home?: Yes Lack of Transportation: No Lack of Food: Never True Current Housing: I Have Housing Concerned About Future Housing: No Difficulty Paying Gas/Electric Bills: No Difficulty Paying for Meds: No Currently Unemployed: No Education: Bachelor's Degree Difficulty w/ Childcare or Family Care: No Living arrangements: with family Occupation/Education: retired Gender identity (if verbalized by the patient): Male Sexual Orientation (if Verbalized by the Patient): Straight or Heterosexual Spiritual care concerns: No Exam Narrative: GENERAL: Well-appearing, well-nourished, and in no acute distress. HEAD: Normocephalic, atraumatic. ENT: Mucous membranes moist. NECK: Supple. CHEST: Clear to auscultation. No respiratory distress. HEART: Irregularly irregular rate and rhythm. Normal peripheral pulses. EXTREMITIES: Normal range of motion. No edema. SKIN: Warm, dry, no rash. NEURO: Alert and oriented x3. PSYCH: Normal mood and affect. Course Course Emergency Course: Patient resting comfortably. Informed of results. Discussed case with Cardiology on-call, no additional recommendations in terms of AFib at this time and recommend treating the pneumonia outpatient. Patient may follow up with his design lead outpatient. Unlikely to need cardioversion given advanced age. Vital Signs Vital signs: Vital Signs Temperature 98.1 F 04/18/25 09:47 Pulse Rate 102 H 04/18/25 09:47 Respiratory Rate 19 04/18/25 09:47 Blood Pressure 108/68 04/18/25 09:47 Pulse Oximetry 100 04/18/25 09:47 Oxygen Delivery Room Air 04/18/25 09:47 Temperature 98.1 F 04/18/25 09:47 Pulse Rate 86 04/18/25 11:02 Respiratory Rate 16 04/18/25 11:02 Blood Pressure 121/83 04/18/25 11:02 Pulse Oximetry 100 04/18/25 11:02 Oxygen Delivery Room Air 04/18/25 11:00 Medical Decision Making Vital Signs Vital Signs: Vital Signs Temperature 98.1 F 04/18/25 09:47 Pulse Rate 102 H 04/18/25 09:47 Respiratory Rate 19 04/18/25 09:47 Blood Pressure 108/68 04/18/25 09:47 Pulse Oximetry 100 04/18/25 09:47 Oxygen Delivery Room Air 04/18/25 09:47 Temperature 98.1 F 04/18/25 09:47 Pulse Rate 86 04/18/25 11:02 Respiratory Rate 16 04/18/25 11:02 Blood Pressure 121/83 04/18/25 11:02 Pulse Oximetry 100 04/18/25 11:02 Oxygen Delivery Room Air 04/18/25 11:00 Lab Data 04/18/25 09:51 04/18/25 09:51 Labs: Lab Results 04/18/25 Range/Units 09:51 WBC 4.5 (4.5-10.0) K/mm3 RBC 4.11 L (4.6-6.20) M/mm3 Hgb 13.3 L (14.0-18.0) g/dL Hct 39.5 L (42.0-52.0) % MCV 96.1 (80-100) fl MCH 32.4 (26-34) pg MCHC 33.7 (32-36) g/dl RDW 13.5 (11.5-14.5) % Plt Count 170 (150-375) k/mm3 MPV 11.3 H (7.4-10.4) fl Immature Gran % (Auto) 0.0 (0-0.5) % Neut % (Auto) 70.1 (45.5-73.1) % Lymph % (Auto) 18.4 (18.3-44.2) % [place] % (Auto) 9.3 H (2.6-8.5) % Eos % (Auto) 1.8 (0-4.4) % Baso % (Auto) 0.4 (0.2-1.2) % Lymph # (Auto) 0.83 L (0.9-3.2) K/mm3 [place] # (Auto) 0.4 (0.1-0.6) K/mm3 Eos # (Auto) 0.1 (0-0.3) K/mm3 Baso # (Auto) 0.0 (0.0-0.1) K/mm3 Abs Immat Gran (auto) 0.00 (0.00-0.031) K/mm3 Absolute Neuts (auto) 3.2 (1.3-6.7) K/mm3 Absolute Nucleated RBC 0.000 (0.0-0.012) K/mm3 Nucleated RBC % 0.0 (0.0-0.2) % Sodium 131 L (137-145) mmol/L Potassium 4.3 (3.4-5.0) mmol/L Chloride 103 (98-107) mmol/L Carbon Dioxide 22 (22-30) mmol/L Anion Gap 6 (4-12) mmol/L BUN 20 (9-20) mg/dL Creatinine 0.96 (0.7-1.3) mg/dL Estim Creat Clear Calc 43 ml/min Estimated GFR > 60 (59 - ) Glucose 179 H (65-110) mg/dL Calcium 8.5 (8.4-10.2) mg/dL Total Bilirubin 0.7 (0.2-1.3) mg/dL AST 32 (17-59) U/L ALT 20 (6-50) U/L Alkaline Phosphatase 110 (38-126) U/L Total Protein 6.7 (6.3-8.2) g/dL Albumin 3.5 (3.5-5.1) g/dL Imaging Data Radiologist's impression: ITS Impressions Chest X-Ray 04/18/25 10:45 Impression: Early left lower lobe pneumonia ECG Data EKG #1: ECG completion date: 04/18/25 ECG completion time: 09:39 EKG Interpretation: normal rate (90), atrial fibrillation, non-specific ST changes, normal QRS and normal QT Discharge Plan Discharge Clinical Impression: Pneumonia, Atrial fibrillation Patient Disposition: Home Condition: Stable Instructions: Community Acquired Pneumonia (ED) Additional Instructions: Urine atrial fibrillation. Continue to take your Xarelto. You also have pneumonia which may have provoked this issue, antibiotics have been prescribed. Follow-up with your PCP. You may also follow-up with your design lead. Patient Language: Indonesian Prescriptions: New doxycycline hyclate 100 mg tablet 100 mg PO BID Qty: 10 0RF amoxicillin-pot clavulanate 875-125 mg tablet 1 tablet PO Q12H Qty: 10 0RF No Action Xarelto 20 mg tablet 20 mg PO QHS pravastatin 40 mg tablet 20 mg PO QHS Phazyme Gas and Acid 750-250 mg tablet,chewable 1 tablet PO HS tamsulosin [Flomax] 0.4 mg capsule 0.4 mg PO QHS finasteride 5 mg tablet 5 mg PO QHS aspirin 81 mg Capsule 81 mg PO EVERY OTHER DAY Patient Comments: every other day last taken 12/01/24 fluticasone propionate 50 mcg/actuation spray,suspension 2 spray NASAL DAILY PRN (Reason: ALLERGIES) Qty: 16 11RF levothyroxine 50 mcg tablet See Rx Instructions .ROUTE .COMPLEX Qty: 90 2RF Dose Instruction: TAKE 1 TABLET DAILY Rx Instructions: TAKE 1 TABLET DAILY allopurinol 100 mg tablet 200 mg PO DAILY Qty: 180 2RF omeprazole 20 mg capsule,delayed release(DR/EC) 20 mg PO DAILY Qty: 90 3RF lorazepam [Ativan] 0.5 mg tablet 0.5 mg PO .qhs PRN (Reason: anxiety) Qty: 90 0RF Follow-up/Referrals: Mohsen Garcia MD [Primary Care Provider, Family Practice] - 1 Week Rey Grissom MD [Physician, Cardiology] - 1 Week
[2025-04-18 12:29] VITALS: BP 126/81; PULSE 83; RESP 20; O2SAT 97
== END 2025-04-18 12:30 | disposition home or self-care (01) ==
PROVIDERS: Student in an Organized Health Care Education/Training Program; Emergency Provider Emergency Medicine; PCP Family Medicine
DX: J18.9 Pneumonia, unspecified organism (principal); I48.91 Unspecified atrial fibrillation; Z95.0 Presence of cardiac pacemaker; Z86.73 Personal history of transient ischemic attack (TIA), and cerebral infarction without residual deficits; D64.9 Anemia, unspecified; I50.9 Heart failure, unspecified; K21.9 Gastro-esophageal reflux disease without esophagitis; Z85.828 Personal history of other malignant neoplasm of skin
CPT/HCPCS: 36415; 71046; 80053; 85025; 93005; 99284

== ENCOUNTER 2025-05-07 12:59 | Emergency (ER) | payer MEDICARE, OTHER, SELFPAY ==
--- NOTE | ~2025-05-07 | XR_ITS ---
EXAMINATION: XR chest 2V 05/07/2025 13:54 INDICATION: Right-sided chest wall pain. TECHNIQUE:Frontal and lateral images of the chest were obtained COMPARISON: 04/18/2025 FINDINGS: Heart size is unchanged. Left-sided generator with leads. No pneumothorax. No free air under the diaphragm. Small to moderate-sized patchy opacities in the lower lungs. IMPRESSION: 1: Small to moderate-sized patchy opacities in the mid and lower lungs. Differential includes but is not limited to atelectasis/scarring and/or infiltrates. The findings are similar to the study from 04/18/2025. If symptoms persist or worsen, consider a chest CT for further assessment Reviewed, dictated and finalized at location Q. IMPRESSION: 1: Small to moderate-sized patchy opacities in the mid and lower lungs. Differ ential includes but is not limited to atelectasis/scarring and/or infiltrates. The findings are similar to the study from 04/18/2025. If symptoms persist or worsen, consider a chest CT for further assessment
--- OUTSIDE RECORDS SUMMARY | 2025-05-07 12:00 | XMS_ITS | Encounter Summary ---
Author Organization [facility] Healthcare Address [address] [place] [address] Care Team Providers Care Director Of Loss Prevention Name Role Phone Mohsen Garcia MD Primary Care Provider Reason for Visit * Reason Comments Muscle Pain Pt c/o straining whi le lifting weights and is having right side pain since then Encounter Details Date Type Department Care Team (Late st Contact Info) Description 05/07/2025 12:00 PM CDT Office Visit [facility] at [address] [phone] Saida Orr, ESCALATION ENGINEER [address] [place] [phone] Other chest pain (Primary Dx); Upper back pain on right side Social History Tobacco Use Types Packs/Day Years Used Date Smoking Tobacco: Former Smokeless Tobacco: Never Alcohol Use Standard Drinks/Week Comments Yes 0 (1 standard drink = 0.6 oz pur e alcohol) Sex and Gender Information Value Date Recorded Sex Assigned at Not on file 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 Gender Identity Male 04/13/2021 9:37 AM CDT Sexual Orientation Not on file documented as of this encounter Last Filed Vital Signs Vital Sign Reading Time Taken Comments Blood Pressure 136/90 05/07/2025 11:32 AM CDT Pulse 68 05/07/2025 11:32 AM CDT Temperature 36.6 C (97.8 F) 05/07/2025 11:32 AM CDT Respiratory Rate 18 05/07/2025 11:32 AM CDT Oxygen Saturation 98% 05/07/2025 11:32 AM CDT Inhaled Oxygen Concentration - - Weight 64.9 kg (143 lb) 05/07/2025 11:32 AM CDT Height 177.8 cm (5' 10) 05/07/2025 11:32 AM CDT Body Mass Index 20.52 05/07/2025 11:32 AM CDT documented in this encounter Plan of Treatment Not on file documented as of this encounter Visit Diagnoses Diagnosis Other chest pain- Primary Upper back pain on right side documented in this encounter Discontinued Medications Medication Sig Discontinue Reason Start Date End Da te amoxicillin-clavulanate (AUGMENTIN) 875-125 mg per tablet Take 1 tablet by mouth every 12 (twelve) hours 04/18/2025 05/07/2025 documented as of this encounter Historical Medications * This list may reflect changes made after this encounter. desmopressin (DDAVP) 0.1 mg tablet Take by mouth nightly 03/17/2025 added in this encounter Care Teams Director Of Loss Prevention Relationship Specialty Start Date End Date Mohsen Garcia MD [address] [facility] [address] [place] [address] PCP - General 12/15/13 documented as of this encounter
[2025-05-07 13:08] VITALS: BP 151/85; PULSE 78; RESP 20; TEMP 36.3; O2SAT 99
--- NOTE | 2025-05-07 13:09 | ED.GENADULT ---
HPI - General Adult General Chief complaint: Back Pain/Injury Stated complaint: back pain Time Seen by Provider: 05/07/25 13:05 History of Present Illness HPI narrative: 89-year-old male present emergency department for evaluation for right-sided posterior rib pain after injuring it during weightlifting. Patient states symptoms started Saturday after he had been weightlifting. Patient denies any specific falls or injuries. Patient denies any associated shortness of breath. Patient reports pain is worsened with range of motion. Patient does have history of recent pneumonia and had been on antibiotics were reports this was a left-sided pneumonia. Patient did take Tylenol for pain control at home and states this did help but patient did take 3 g Tylenol over the course of a 24 hour period. Related Data Home Medications ?Medication ?Instructions ?Recorded ?Confirmed ?Last Taken ?Type pravastatin 40 mg tablet 20 mg PO QHS 06/09/19 04/23/25 02/01/25 History rivaroxaban 20 mg tablet (Xarelto) 20 mg PO QHS 06/09/19 04/23/25 01/29/25 History Held on 02/03/25. Instructions: Resume on 02/04/25. aspirin 81 mg capsule 81 mg PO EVERY OTHER DAY 07/31/23 04/23/25 01/31/25 History calcium carbonate 750 1 tablet PO HS 12/02/24 04/23/25 02/01/25 History mg-simethicone 250 mg chewable tablet (Phazyme Gas and Acid) finasteride 5 mg tablet 5 mg PO QHS 12/02/24 04/23/25 02/01/25 History tamsulosin 0.4 mg capsule (Flomax) 0.4 mg PO QHS 12/02/24 04/23/25 02/01/25 History Allergies Allergy/AdvReac Type Severity Reaction Status Date / Time No Known Allergies Allergy Verified 05/07/25 13:13 Review of Systems Review of Systems: All systems reviewed & are unremarkable except as noted in HPI and below [facility] Past Medical History Medical History Pacemaker SSS (sick sinus syndrome) Pulmonary fibrosis, unspecified CVA (cerebral vascular accident) Carotid stenosis, right Carotid duplex in 2023 - showed 50-69% stenosis right ICA, <50% in left ICA Anemia Elevated fecal calprotectin Heart failure Peripheral edema Hiatal hernia GERD with esophagitis BCC (basal cell carcinoma of skin) Surgical History Surgical History Hx of appendectomy 02/02/25 Laparoscopic appendectomy History of colonoscopy Last in November 2023 d/t previous episode of colitis, with findings of diverticulosis, polyps, and internal hemorrhoids History of pacemaker History of tonsillectomy History of Mohs micrographic surgery for skin cancer Family History Family History Mother Hypertension Cerebrovascular accident Social History Social History Social History: Smoking status: Never smoker Second hand tobacco smoke exposure: No Alcohol intake: never Drinks per week: 1 Alcohol use details: SHOT A WEEK Substance use: never Substance use type: does not use Do You Feel Safe in your Home?: Yes Lack of Transportation: No Lack of Food: Never True Current Housing: I Have Housing Concerned About Future Housing: No Difficulty Paying Gas/Electric Bills: No Difficulty Paying for Meds: No Currently Unemployed: No Education: Bachelor's Degree Difficulty w/ Childcare or Family Care: No Living arrangements: with family Occupation/Education: retired Gender identity (if verbalized by the patient): Male Sexual Orientation (if Verbalized by the Patient): Straight or Heterosexual Spiritual care concerns: No Exam Narrative: APPEARANCE: Well appearing, no pain, no distress, well-nourished. HEAD: normocephalic, atraumatic. EYES: PERRLA/EOMI, conjunctivae clear. NOSE: Normal no drainage EARS:TMS clear with good light reflex. THROAT: Pharynx clear, no exudate. NECK: Supple. No adenopathy, no masses. RESPIRATORY: Airway patent, respirations nonlabored. Clear to auscultation bilaterally, no rales, rhonchi, wheezing. CARDIOVASCULAR: Regular rate and rhythm without murmurs rubs or gallops. ABDOMINAL: Soft, nontender, nondistended, normal bowel sounds MUSCULOSKELETAL: Right-sided posterior rib pain NEURO: Alert. Cranial nerves II through XII intact. Good gait. Good coordination SKIN: Warm, dry. Normal Color Course Vital Signs Vital signs: Vital Signs Temperature 97.4 F L 05/07/25 13:08 Pulse Rate 78 05/07/25 13:08 Respiratory Rate 20 05/07/25 13:08 Blood Pressure 151/85 H 05/07/25 13:08 Pulse Oximetry 99 05/07/25 13:08 Oxygen Delivery Room Air 05/07/25 13:08 Temperature 97.8 F 05/07/25 15:49 Pulse Rate 63 05/07/25 15:49 Respiratory Rate 18 05/07/25 15:49 Blood Pressure 160/100 H 05/07/25 15:49 Pulse Oximetry 100 05/07/25 15:49 Oxygen Delivery Room Air 05/07/25 13:08 Medical Decision Making MDM Narrative Medical decision making narrative: 89-year-old male presents emergency department for evaluation of right-sided rib pain after weightlifting. I do suspect patient has a rib contusion versus rib fracture. Patient has no underlying pneumonia pneumothorax or evidence of pulmonary contusion. Small to moderate-sized patchy opacities in the mid and lower lungs. Differential includes but is not limited to atelectasis/scarring and/or infiltrates. The findings are similar to the study from 04/18/2025. Patient reports Toradol does help with his pain control [place] resolved his pain. Patient was provided incentive spirometer. Patient family updated the results of the workup and plan for treatment for home. All questions concerns were addressed. Differential Diagnosis Differential Diagnosis: Rib fracture, rib contusion, pneumothorax, pneumonia, pulmonary contusion Vital Signs Vital Signs: Vital Signs Temperature 97.4 F L 05/07/25 13:08 Pulse Rate 78 05/07/25 13:08 Respiratory Rate 20 05/07/25 13:08 Blood Pressure 151/85 H 05/07/25 13:08 Pulse Oximetry 99 05/07/25 13:08 Oxygen Delivery Room Air 05/07/25 13:08 Temperature 97.8 F 05/07/25 15:49 Pulse Rate 63 05/07/25 15:49 Respiratory Rate 18 05/07/25 15:49 Blood Pressure 160/100 H 05/07/25 15:49 Pulse Oximetry 100 05/07/25 15:49 Oxygen Delivery Room Air 05/07/25 13:08 Imaging Data Radiologist's impression: Impressions Chest X-Ray 05/07/25 13:56 IMPRESSION: 1: Small to moderate-sized patchy opacities in the mid and lower lungs. Differential includes but is not limited to atelectasis/scarring and/or infiltrates. The findings are similar to the study from 04/18/2025. If symptoms persist or worsen, consider a chest CT for further assessment Discharge Plan Discharge Clinical Impression: Rib pain on right side Patient Disposition: Home Condition: Stable Instructions: Antibiotic Form, How to Use an Incentive Spirometer (ED), Rib Fracture (ED) Additional Instructions: Incentive spirometer as directed. [place] as needed for pain control. If you require [place] for pain control than be aware that [place] can make your gait more unstable and can cause constipation. Have close follow-up with your primary care physician. Patient Language: Ivorian Prescriptions: New hydrocodone-acetaminophen 5-325 mg tablet 1 tablet PO Q12H PRN (Reason: pain) Qty: 14 0RF No Action Xarelto 20 mg tablet 20 mg PO QHS pravastatin 40 mg tablet 20 mg PO QHS Phazyme Gas and Acid 750-250 mg tablet,chewable 1 tablet PO HS tamsulosin [Flomax] 0.4 mg capsule 0.4 mg PO QHS finasteride 5 mg tablet 5 mg PO QHS doxycycline hyclate 100 mg tablet 100 mg PO BID Qty: 10 0RF amoxicillin-pot clavulanate 875-125 mg tablet 1 tablet PO Q12H Qty: 10 0RF aspirin 81 mg Capsule 81 mg PO EVERY OTHER DAY Patient Comments: every other day last taken 12/01/24 fluticasone propionate 50 mcg/actuation spray,suspension 2 spray NASAL DAILY PRN (Reason: ALLERGIES) Qty: 16 11RF levothyroxine 50 mcg tablet See Rx Instructions .ROUTE .COMPLEX Qty: 90 2RF Dose Instruction: TAKE 1 TABLET DAILY Rx Instructions: TAKE 1 TABLET DAILY allopurinol 100 mg tablet 200 mg PO DAILY Qty: 180 2RF omeprazole 20 mg capsule,delayed release(DR/EC) 20 mg PO DAILY Qty: 90 3RF lorazepam [Ativan] 0.5 mg tablet 0.5 mg PO .qhs PRN (Reason: anxiety) Qty: 90 0RF Follow-up/Referrals: Mohsen Garcia MD [Primary Care Provider, Family Practice]
--- NOTE | 2025-05-07 13:25 | ECG_ITS ---
Test Date: 2025-05-07 14:49:47 Measurements Intervals [place] Rate: 59 P: 168 OK: 189 QRS: -31 QRSD: 86 T: -14 QT: 433 QTc: 432 Interpretive Statements ELECTRONIC ATRIAL PACEMAKER LEFT AXIS DEVIATION BORDERLINE ST-T WAVE ABNORMALITY- INFERIOR LEADS BORDERLINE ECG Compared to ECG 04/18/2025 09:39:35 Atrial fibrillation no longer present Electronically Signed On 05-07-2025 15:39:25 CDT by Adolfo Mejia D.O.
--- OUTSIDE RECORDS SUMMARY | 2025-05-07 13:33 | XMS_ITS | Patient Health Record ---
Author Organization [facility] Address [address] [place] [address] Care Team Providers Care Auto Battery Builder Name Role Phone Sadi Morrison Unavailable Unavailable Allergies No Known Allergies Reason For Referral No Information Medications Medication SIG (Take, Route, Frequency, Duration) Notes Start Date End Date Status Levothyroxine Sodium 50 mcg (0.05 mg) tablet oral Once a day *Pick strength-form from [facility] for eRX* 08/05/1909 Active Allopurinol 200mg daily *Pick strength-form from [facility] for eRX* 08/05/1909 Active Aspirin Adult Low Strength 81 mg delayed release tablet oral Once a day *Pick strength-form from [facility] for eRX* 08/05/1909 Active LORazepam 0.5 mg tablet oral PRN for sleep 08/05/1909 Active Tamsulosin HCl 0.4 mg Capsule TAKE 1 CAPSULE DAILY Active Multivitamin Once a day *Pick strength-form from [facility] for eRX* 08/05/1909 Active Sildenafil Citrate 100 MG Tablet 1 tablet as needed Orally PRN before intercourse; Duration: 30 day(s) Active Finasteride 5 mg tablet oral Once a day 06/19/2016 Active Pravastatin Sodium *Pick strength-form from [facility] for eRX* 08/05/1909 Active Xarelto *Pick strength-form from [facility] for eRX* 08/05/1909 Active Social History Social History Additional Details Category Social Info Options Details Migrated Social History Drugs/Alcohol: (Alcohol Screen (Audit-C)): Did you have a drink containing alcohol in the past year?: Yes, How often did you have a drink containing alcohol in the past year?: 4 or more times a week (4 points), How many drinks did you have on a typical day when you were drinking in the past year?: 1 or 2 drinks (0 point), How often did you have 6 or more drinks on one occasion in the past year?: Never (0 point), Points: 4, Interpretation: Positive Tobacco Use: (Tobacco Use/Smoking): Are you a: former smoker Problems Problem Type SNOMED Code ICD Code Onset Dates Problem Status W/U Status Risk Notes Problem Benign prostatic hypertrophy without outflow obstruction (043510486) Benign localized prostatic hyperplasia without lower urinary tract symptoms (LUTS) (N40.0) Active confirmed Problem Secondary erectile dysfunction (disorder) (830843005) Erectile disorder due to medical condition in male (N52.1) Active confirmed Problem Ex-tobacco user (finding) (342285908) History of tobacco use (Z87.891) Active confirmed Problem Erectile dysfunction (disorder) (054098436) Other male erectile dysfunction (N52.8) 09/14/19 16 Active confirmed hi-Other male erectile dysfunction Problem Nocturia (520002385) Nocturia (R35.1) 09/14/19 16 Active confirmed hi-Nocturia Problem Reduced libido (2769795) Decreased libido (R68.82) 09/14/19 16 Active confirmed hi-Decreased libido Problem Benign prostatic hypertrophy without outflow obstruction (034027046) Benign prostatic hyperplasia without lower urinary tract symptoms (N40.0) 09/14/19 16 Active confirmed hi-Benign prostatic hyperplasia without lower urinary tract symptoms Plan Of Treatment Future Test Test Name Order Date *TRUS : Ultrasound Prostate 10/10/2022 Insurance Providers Payer Name Payer Address Payer Phone Subscriber Number Group Number Insured Name Patient Relationship to Insured Coverage Start Date Coverage End Date [place] Medicare Part B [id number] [facility] [address] [address] [place] [address] [id number] Marcial Santos Self - patient is the insured 6 Medical (General) History Medical History History ICD Code gout (stable), Hypothyroidis m (stable), GERD (stable), Benign Prostatic Hypertrophy (stable), Cataracts (stable), Arthritis (stable), Back Pain (stable), stroke (stable) Surgical History Surgery Date(Month/Year) Greenlight TURP 09/04/2007 Non-Urological : Basal Cell Carcinoma
--- OUTSIDE RECORDS SUMMARY | 2025-05-07 13:33 | XMS_ITS | Patient Health Record ---
Author Organization 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
--- OUTSIDE RECORDS SUMMARY | 2025-05-07 13:33 | XMS_ITS | Clinical Summary ---
Author Organization [facility] [address] Address [address] [place] [address] Care Team Providers Care Registered Dietitian Name Role Phone Mohsen Garcia MD Primary [...] each day 0 0 12/14/19 15 Active Additional Information Patient not taking.Reported on 05/07/2025 finasteride (PROSCAR) 5 mg tablet take 1 [...] 1 % gel Apply topically Acti ve aspirin 81 mg enteric coated tablet Take 1 tablet (81 mg total) by mouth every other day Active Xarelto 20 mg tablet TAKE 1 TABLET DAILY 90 tablet 3 02/25/20 25 Active pravastatin (PRAVACHOL) 20 mg tablet TAKE 1 TABLET BY MOUTH EVERY DAY 90 tablet 2 04/02/20 25 Active desmopressin (DDAVP) 0.1 mg tablet Take by mouth nightly 03/17/20 25 Active amoxicillin-cl avulanate (AUGMENTIN) 875-125 mg per tablet Take 1 tablet by mouth every 12 (twelve) hours 04/18/20 25 025 Discontinued Active Problems Problem Noted Date Diagnosed Date Sensorineural hearing loss (SNHL) of both ears 1 Overview (05/07/2025): Today's results show a sloping, [id number], SnHL above 1.5k Hz in both ears. Excellent SD scores bilaterally. Normal middle ear function in both ears. DPOAEs show outer hair cell dysfunction above 750 Hz in both ears, which is in agreemeent wit Tinnitus 05/07/2025 Vestibular dysfunction of right ear 05/07/2025 Visit for wound check 06/12/2024 Localized edema 10/07/2023 Shortness of breath 03/23/2022 Mixed hyperlipidemia 12/25/2021 Precordial pain 01/22/2019 Chest pain 12/19/2018 Dark stools 05/14/2018 Chronic anticoagulation 12/16/2017 Paroxysmal atrial fibrillation 05/22/2017 Double vision 01/16/2017 Benign hypertension 02/13/2016 Overview (11/09/2016): HTN (hypertension), benign Carotid stenosis, right 02/13/2016 Overview (11/09/2016): Bilateral carotid artery stenosis History of stroke 02/13/2016 Overview (11/09/2016): H/O: CVA (cerebrovascular accident) Stenosis of right carotid artery 02/13/2016 Overview (11/09/2016): Stenosis of right carotid artery Presence of cardiac pacemaker 02/13/2016 Overview (06/08/2024): Medtronic [place] Dual Pacemaker Dx; SSS, PAT. DOI 06/05/24, [...] Encounters Date Type Department Care Team Description 05/07/2025 12:00 PM CDT Office Visit [facility] Care at [address] [address] Saida Orr NP Other chest pain (Primary Dx); Upper back pain on right side 05/04/2025 9:00 AM CDT Ancillary Procedure [facility] [address] [place] [address] [place] [phone] Paroxysmal atrial fibrillation (HCC); Presence of cardiac pacemaker; Sick sinus syndrome (CMS/HCC) 05/03/2025 2:30 PM CDT Office Visit [facility] [address] [facility] [address] [place] [phone] Nazanin Penny NP Paroxysmal atrial fibrillation (HCC) (Primary Dx); Chronic anticoagulation; Sick sinus syndrome (HCC); Presence of cardiac pacemaker; History of TIA (transient ischemic attack) 03/02/2025 8:15 AM CDT Ancillary Procedure [facility] [address] [facility] [address] [place] [phone] Dyspnea on exertion 03/02/2025 Results Follow-Up [facility] [address] [place] [address] Nazanin Penny NP Transthoracic Echo (TTE) Complete W Doppler/CF 02/16/2025 8:00 AM CDT Office Visit [facility] [address] [place] [address] Nazanin Penny NP Dyspnea on exertion (Primary Dx); Nonrheumatic mitral valve regurgitation; Sick sinus syndrome (HCC); Presence of cardiac pacemaker; Paroxysmal atrial fibrillation (HCC); Chronic anticoagulation; Carotid stenosis, right; History of TIA (transient ischemic attack) from Last 3 Months Surgical History Surgery [...] on file 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 Gender Identity Male 04/13/2021 9:37 AM CDT [...] Mass Index 20.52 05/07/2025 11:32 AM CDT Plan of Treatment Health Maintenance [...] history exists Medical Devices Implanted Type Area Test Deck Supervisor Device Identifier Shelf Expiration Date Model / Serial / Lot Pacemaker-2013 Implanted:01/15 by Hugo Thurman MD (Quantity not on file) Pacemaker Chest Medtronic SSS, PAT REVO MRI / [id number] / CHRONIC LEADS 07/2004 Procedures Procedure Name Priority Date/Time Associated Diagnosis Comments TRANSTHORACIC ECHO (TTE) COMPLETE W DOPPLER/CF WO CONTRAST Routine 03/02/2025 8:52 AM CDT Dyspnea on exertion from Last 3 Months Results * TRANSTHORACIC ECHO (TTE) COMPLETE W DOPPLER/CF WO CONTRAST (03/02/2025 8:52 AM CDT) EF Mod BP 60 % CONS SCIMAGE Anatomical Region Laterality Modality Ultrasound 03/02/2025 8:08 AM CDT Narrative 03/02/2025 12:08 PM CDT [facility]iology [address] [address] [address] [facility] [address], [place] [address] P:[phone] P:[phone] Echocardiographic Report Patient Name: EDGARDO BENÍTEZ T : 1935 Study Date: 03/02/2025 8:08:47 AM Gender: M Paper Cutter Operator: Genoveva Beck)(CT), [facility] Location: [place] Ref Provider: ZOHAIB,NAZANIN Height(Cm): 178 BSA: 1.8 Weight(Kg): 65.3 Heart Rate: 73 BP: 108 / 66 Quality: Good Order Provider: NAZANIN PENNY PROCEDURES: Echocardiographic Report: Transthoracic echocardiogram with [...] FINDINGS: Interpretation Site: Exam was interpreted at [facility]. Left Ventricle: Ejection fraction is measured at [...] Procedure Note Anmol [place] MD - 03/02/2025 [facility] [address] [facility] [address] [address] [address] [facility] [address] [address] P:[phone] P:[phone] Echocardiographic Report Patient Name: EDGARDO BENÍTEZ T : 1935 Study Date: 03/02/2025 8:08:47 AM Gender: M Paper Cutter Operator: Genoveva Pineda (Rachana)(CT), [facility] Location: [place] Ref Provider: NAZANIN PENNY Height(Cm): 178 BSA: 1.8 Weight(Kg): 65.3 Heart Rate: 73 BP: 108 / 66 Quality: Good Order Provider: NAZANIN PENNY PROCEDURES: Echocardiographic Report: Transthoracic echocardiogram with [...] FINDINGS: Interpretation Site: Exam was interpreted at [facility]. Left Ventricle: Ejection fraction is measured at [...] Dr. Anmol Francisco 03/02/2025 12:08:27 PM CDT Nazanin Penny NP CV ECHO PROCEDURES Final Result from Last 3 Months Insurance MEDICARE FOR LIFE MEDICARE FOR LIFE Care Teams Registered Dietitian Relationship Specialty Start Date End Date Mohsen Garcia MD [address] [place] [address] PCP - General 12/15/13
--- OUTSIDE RECORDS SUMMARY | 2025-05-07 13:34 | XMS_ITS | Encounter Summary ---
Author Organization [facility] Healthcare Address [address] [place] [address] Care Team Providers Care Machine Specialist Name Role Phone Mohsen Garcia MD Primary Care Provider Encounter Details Date Type Department Care Team (Late st Contact Info) Description 10/02/2023 Orders Only [facility] Health Information Management [address] [place] [address] Scanning, Provider Social History Tobacco Use Types Packs/Day Years Used Date Smoking Tobacco: Former Smokeless Tobacco: Never Alcohol Use Standard Drinks/Week Comments Yes 0 (1 standard drink = 0.6 oz pur e alcohol) Sex and Gender Information Value Date Recorded Sex Assigned at Not on file 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
--- OUTSIDE RECORDS SUMMARY | 2025-05-07 13:34 | XMS_ITS | Encounter Summary ---
Author Organization [facility] Address [address] [facility] [address] [place] [address] Care Team Providers Care Cable Repairer Name Role Phone Mohsen Garcia MD Primary Care Provider Encounter Details Date Type Department Care Team (Late st Contact Info) Description 08/08/2016 Orders Only [facility] ProviderGerardo MD [address] [place] [address] Social History Tobacco Use Types Packs/Day Years Used Date Smoking Tobacco: Former Cigarettes Q uit: 08/05/1964 Alcohol Use Standard Drinks/Week Comments Yes 0 (1 standard drink = 0.6 oz pur e alcohol) Sex and Gender Information Value Date Recorded Sex Assigned at Not on file 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
--- OUTSIDE RECORDS SUMMARY | 2025-05-07 13:34 | XMS_ITS | Encounter Summary ---
Author Organization [facility] Healthcare Address [address] [place] [address] Care Team Providers Care Core Winder Name Role Phone Mohsen Garcia MD Primary Care Provider Encounter Details Date Type Department Care Team (Late st Contact Info) Description 04/09/2018 Orders Only [facility] Health Information Management [address] [place] [address] Scanning, Provider Social History Tobacco Use Types Packs/Day Years Used Date Smoking Tobacco: Former Smokeless Tobacco: Never Alcohol Use Standard Drinks/Week Comments Yes 0 (1 standard drink = 0.6 oz pur e alcohol) Sex and Gender Information Value Date Recorded Sex Assigned at Not on file 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
--- OUTSIDE RECORDS SUMMARY | 2025-05-07 13:34 | XMS_ITS | Clinical Summary ---
Author Organization [facility] Address [facility] [place] [address] Care Team Providers Care Card Room Manager Name Role Phone Mohsen Garcia MD Primary Care Provider [phone] Social History Tobacco Use Types Packs/Day Years [...] this topic Insurance [employer] MEDICARE Care Teams Card Room Manager Relationship Specialty Start Date End Date Mohsen Garcia MD [address] [place] [address] PCP - General FAMILY PRACTICE 02/21/22
--- OUTSIDE RECORDS SUMMARY | 2025-05-07 13:34 | XMS_ITS | Encounter Summary ---
Author Organization [facility] Address [address] [facility] [address] [place] [address] Care Team Providers Care Oil Refinery Operator Name Role Phone Mohsen Garcia MD Primary Care Provider Encounter Details Date Type Department Care Team (Late st Contact Info) Description 2016 Orders Only [facility] ProviderGerardo MD [address] [place] [address] Social History Tobacco Use Types Packs/Day Years Used Date Smoking Tobacco: Former Cigarettes Q uit: 08/05/1964 Alcohol Use Standard Drinks/Week Comments Yes 0 (1 standard drink = 0.6 oz pur e alcohol) Sex and Gender Information Value Date Recorded Sex Assigned at Not on file 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
--- OUTSIDE RECORDS SUMMARY | 2025-05-07 13:34 | XMS_ITS | Encounter Summary ---
Author Organization [facility] Healthcare Address [address] [place] [address] Care Team Providers Care Poultry Scientist Name Role Phone Mohsen Garcia MD Primary Care Provider Encounter Details Date Type Department Care Team (Late st Contact Info) Description 09/24/2023 Orders Only [facility] Information Management [address] [place] [address] Scanning, Provider Social History Tobacco Use Types Packs/Day Years Used Date Smoking Tobacco: Former Smokeless Tobacco: Never Alcohol Use Standard Drinks/Week Comments Yes 0 (1 standard drink = 0.6 oz pur e alcohol) Sex and Gender Information Value Date Recorded Sex Assigned at Not on file Legal Sex Male 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
--- OUTSIDE RECORDS SUMMARY | 2025-05-07 13:34 | XMS_ITS | Encounter Summary ---
Author Organization [facility] Healthcare Address [address] [place] [address] Care Team Providers Care Carbon Brusher Assembler Name Role Phone Mohsen Garcia MD Primary Care Provider Encounter Details Date Type Department Care Team (Late st Contact Info) Description 06/05/2024 Orders Only [facility] Information Management [address] [place] [address] Scanning, Provider Social History Tobacco Use Types Packs/Day Years Used Date Smoking Tobacco: Former Smokeless Tobacco: Never Alcohol Use Standard Drinks/Week Comments Yes 0 (1 standard drink = 0.6 oz pur e alcohol) Sex and Gender Information Value Date Recorded Sex Assigned at Not on file 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 Gender Identity Male 04/13/2021 9:37 AM CDT Sexual Orientation Not on file documented as of this encounter Plan of Treatment Not on file documented as of this encounter Procedures Procedure Name Priority Date/Time Associated Diagnosis Comments CARDIOLOGY DOCUMENT SCAN 06/05/2024 documented in this encounter Results * Cardiology Document Scan (06/05/2024) Anatomical Region Laterality Modality Other us Provider Scanning CV CARDIAC SERVICES PROCEDURES Final Result documented in this encounter Visit Diagnoses Not on filedocumented in this encounter Care Teams Carbon Brusher Assembler Relationship Specialty Start Date End Date Mohsen Garcia MD [address] [place] [address] PCP - General 12/15/13 documented as of this encounter
[2025-05-07] MEDS: KETOROLAC 30 MG/ML VIAL (*BKC) IM (13:36)
[2025-05-07] MEDS: HYDROcodone/acetaminophen (*CRX) 5-325 MG TABLET 1 TAB PO (15:45)
[2025-05-07 15:49] VITALS: BP 160/100; PULSE 63; RESP 18; TEMP 36.6; O2SAT 100
== END 2025-05-07 17:00 | disposition home or self-care (01) ==
PROVIDERS: Emergency Provider Emergency Medicine; PCP Family Medicine
DX: R07.89 Other chest pain (principal); I49.5 Sick sinus syndrome; I65.21 Occlusion and stenosis of right carotid artery; I50.9 Heart failure, unspecified; K44.9 Diaphragmatic hernia without obstruction or gangrene; K21.00 Gastro-esophageal reflux disease with esophagitis, without bleeding; Z95.0 Presence of cardiac pacemaker; Z86.2 Personal history of diseases of the blood and blood-forming organs and certain disorders involving the immune mechanism; Z87.01 Personal history of pneumonia (recurrent); Z86.73 Personal history of transient ischemic attack (TIA), and cerebral infarction without residual deficits; Z85.828 Personal history of other malignant neoplasm of skin; Z79.01 Long term (current) use of anticoagulants; Z79.899 Other long term (current) drug therapy; Z79.82 Long term (current) use of aspirin; R94.31 Abnormal electrocardiogram [ECG] [EKG]
CPT/HCPCS: 71046; 93005; 96372; 99283; A9270; J1885